=== PATIENT | male | born 1930 | race Caucasian/White ===

== ENCOUNTER 2018-07-26 16:01 | Inpatient (IN) | payer OTHER ==
[~2018-07-26] VITALS: Ht 160 cm; Wt 75.4 kg
[2018-07-26] MEDS ORDERED: SOD CHLORIDE 0.9% 1,000 ML IV STA (16:13)
[2018-07-26] MEDS ORDERED: SIN50200 PO (16:31)
[2018-07-26] MEDS ORDERED: OMEG1CAP2 PO (16:32)
[2018-07-26] MEDS ORDERED: ENTA200T2 PO (16:32)
[2018-07-26] MEDS ORDERED: ATOR20TA38 PO (16:32)
[2018-07-26] MEDS ORDERED: METF500T24 PO (16:33)
[2018-07-26] MEDS ORDERED: NALO25TA PO (16:33)
[2018-07-26] MEDS ORDERED: AMAN100C96 PO (16:33)
--- NOTE | 2018-07-26 16:33 | ERD ---
ER Documentation Chief Complaint Chief Complaint Per family patient fell yesterday in the bathroom HPI This is a pleasant elderly 88-year-old male who presents for evaluation of a mechanical fall, where the patient had slipped on his urine, while he had been in the bathroom, he has a prior history of Parkinson's disease, his daughter and granddaughter at the bedside, and states that he is at his mental baseline. Patient had no loss of consciousness, he complains mainly of left hip ROS All systems reviewed and are negative except as per history of present illness. Medications Home Meds Reported Medications Tamsulosin Hcl* (Tamsulosin Hcl*) 0.4 Mg Cap.er.24h, 0.4 MG PO HS, CAP 07/26/18 Aspirin (Low Dose Aspirin) 81 Mg Tablet.dr, 81 MG PO DAILY, #30 TAB 07/26/18 Pramipexole* (Mirapex*) 0.5 Mg Tablet, 0.5 MG PO FIVE TIMES DAILY, TAB 07/26/18 Lisinopril* (Lisinopril*) 5 Mg Tablet, 5 MG PO DAILY, #30 TAB 07/26/18 Atenolol* (Atenolol*) 50 Mg Tablet, 50 MG PO DAILY, #30 TAB 07/26/18 Naloxegol Oxalate (Movantik) 25 Mg Tablet, 25 MG PO DAILY, TAB 07/26/18 Amantadine Hcl* (Amantadine Hcl*) 100 Mg Capsule, 100 MG PO BID, #60 CAP 07/26/18 Metformin Hcl* (Metformin Hcl*) 500 Mg Tablet, 500 MG PO WITH BREAKFAST DINNE, #60 TAB 07/26/18 Atorvastatin Calcium* (Atorvastatin Calcium*) 20 Mg Tablet, 20 MG PO QHS, #30 TAB 07/26/18 [place]-3 Acid Ethyl Esters (Lovaza) 1 Gm Capsule, 2 GM PO BID, CAP 07/26/18 Entacapone* (Entacapone*) 200 Mg Tablet, 200 MG PO QID, TAB 07/26/18 Carbidopa-Levodopa* (Sinemet CR*) 50-200 Mg Tabsr, 1 TAB PO QID, TAB 07/26/18 Allergies Allergies: Coded Allergies: No Known Allergy (Unverified , 07/26/18) PMhx/Soc History of Surgery: Yes (prostate) Anesthesia Reaction: No Hx Neurological Disorder: Yes (Parkinson's, dementia) Hx Respiratory Disorders: No Hx Cardiac Disorders: Yes (HTN) Hx Psychiatric Problems: No Hx Miscellaneous Medical Probl: No Hx Alcohol Use: No Hx Substance Use: No Hx Tobacco Use: No Smoking Status: Never smoker Physical Exam Vitals Vital Signs Date Temp Pulse Resp B/P (MAP) Pulse Ox O2 O2 Flow FiO2 Time Delivery Rate 07/26/18 98.7 80 20 83/45 (58) 98 16:05 Physical Exam Const: No acute distress Head: Atraumatic Eyes: Normal Conjunctiva ENT: Normal External Ears, Nose and Mouth. Neck: Full range of motion. No meningismus. Resp: Clear to auscultation bilaterally Cardio: Regular rate and rhythm, no murmurs Abd: Soft, non tender, non distended. Normal bowel sounds Skin: No petechiae or rashes Back: No midline or flank tenderness Ext: Left hip is held in flexed position, there is ecchymosis over the left hip area, tender over the mid pubis, sensation intact light touch distally posterior tibialis pulses 2+ Neur: Awake and alert Psych: Normal Mood and Affect Result Diagram: 07/26/18 1630 07/26/18 1630 Results 24 hrs Laboratory Tests Test 07/26/18 16:30 07/26/18 16:50 White Blood Count 5.1 10^3/ul Red Blood Count 3.66 10^6/ul Hemoglobin 11.4 g/dl Hematocrit 35.0 % Mean Corpuscular Volume 95.6 fl Mean Corpuscular Hemoglobin 31.1 pg Mean Corpuscular Hemoglobin Concent 32.6 g/dl Red Cell Distribution Width 13.0 % Platelet Count 117 10^3/UL Mean Platelet Volume 10.3 fl Immature Granulocytes % 0.200 % Neutrophils % 79.1 % Lymphocytes % 12.7 % Monocytes % 6.4 % Eosinophils % 1.2 % Basophils % 0.4 % Nucleated Red Blood Cells % 0.0 /100WBC Immature Granulocytes # 0.010 10^3/ul Neutrophils # 4.1 10^3/ul Lymphocytes # 0.7 10^3/ul Monocytes # 0.3 10^3/ul Eosinophils # 0.1 10^3/ul Basophils # 0.0 10^3/ul Nucleated Red Blood Cells # 0.0 10^3/ul Prothrombin Time 16.8 Sec Prothrombin Time Ratio 1.3 INR International Normalized Ratio 1.35 Sodium Level 141 mmol/L Potassium Level 4.0 mmol/L Chloride Level 101 mmol/L Carbon Dioxide Level 25 mmol/L Anion Gap 15 Blood Urea Nitrogen 22 mg/dl Creatinine 1.11 mg/dl Est Glomerular Filtrat Rate mL/min mL/min Glucose Level 237 mg/dl Calcium Level 8.5 mg/dl Total Bilirubin 1.0 mg/dl Direct Bilirubin 0.00 mg/dl Indirect Bilirubin 1.0 mg/dl Aspartate Amino Transf (AST/SGOT) 36 IU/L Alanine Aminotransferase (ALT/SGPT) 14 IU/L Alkaline Phosphatase 74 IU/L Troponin I < 0.012 ng/ml B-Type Natriuretic Peptide 718 PG/ML Total Protein 6.7 g/dl Albumin 3.6 g/dl Globulin 3.10 g/dl Albumin/Globulin Ratio 1.16 Urine Color RADHA Urine Clarity SLIGHTLY CLOUDY Urine pH 5.0 Urine Specific [place] 1.017 Urine Ketones TRACE mg/dL Urine Nitrite NEGATIVE mg/dL Urine Bilirubin NEGATIVE mg/dL Urine Urobilinogen NEGATIVE mg/dL Urine Leukocyte Esterase 2+ Nikolay/ul Urine Microscopic RBC 77 /HPF Urine Microscopic WBC 53 /HPF Urine Bacteria MANY /HPF Urine Hemoglobin 2+ mg/dL Urine Glucose NEGATIVE mg/dL Urine Total Protein NEGATIVE mg/dl Current Medications Medications Dose Sig/Whit Start Time Status Last (Trade) Ordered Route PRN Stop Time Admin Dose Reason Admin Sodium 1,000 ml @ Q1H STAT 07/26/18 DC 07/26/18 Chloride 1,000 mls/hr IV 16:13 16:49 07/26/18 17:12 Procedures/MDM This is a very pleasant elderly 88-year-old male who presents for evaluation of mechanical fall in the setting of a slip and fall, he has a prior history of Parkinson's disease, and is at his neurologic baseline. His CT scan confirmed closed femoral neck fracture, as well as a superior rami fracture on the left side, patient will require admission, he is otherwise hemodynamically stable, his CT brain shows no acute intracranial findings, Dr. Davis consulted for orthopedic surgery. Will be admitted to Dr. Mckenzie EKG: Rate/Rhythm: Normal Sinus Rhythm QRS, ST, T-waves: Nonspecific T wave changes per no changes consistent w/ acute ischemia Impression: No evidence of ischemia or arrhythmia Departure Diagnosis: Primary Impression: Hypotension Hypotension type: unspecified hypotension type Qualified Codes: I95.9 - Hypotension, unspecified Additional Impression: Subcapital fracture of femur Encounter type: initial encounter Fracture type: closed Laterality: left Qualified Codes: S72.012A - Unspecified intracapsular fracture of left femur, initial encounter for closed fracture Condition: Stable ALAINA KOROMA MD Jul 26, 2018 16:33
[2018-07-26] MEDS ORDERED: ATEN50TA PO (16:34)
[2018-07-26] MEDS ORDERED: LISI-313 PO (16:34)
[2018-07-26] MEDS ORDERED: TAMS0.4C2 PO (16:35)
[2018-07-26] MEDS ORDERED: ASPI81TA52 PO (16:35)
[2018-07-26] MEDS ORDERED: PRAM0.5T5 PO (16:35)
[2018-07-26] MEDS ORDERED: DOCUSATE SODIUM 100 MG CAP PO PRN (19:00)
[2018-07-26] MEDS ORDERED: NACL 0.9% 3 ML SYG IV SCH (19:00)
[2018-07-26] MEDS ORDERED: ONDANSETRON 4 MG INJ IV PRN (19:00)
[2018-07-26] MEDS ORDERED: morphine 2 MG INJ IV PRN (19:00)
[2018-07-26] MEDS ORDERED: ACETAMINOPHEN 325 MG TAB PO PRN (19:00)
[2018-07-26 19:32] VITALS: BP 111/60; PULSE 69; RESP 18
--- NOTE | 2018-07-26 20:33 | CONS ---
Assessment/Plan Assessment/Plan Hospital Course (Demo Recall) 88-year-old male with multiple medical problems including Parkinson's, dementia, diabetes presents with an acute on chronic left femoral neck fracture. Based on the patient's imaging the fracture is clearly chronic. It is difficult to say how long as the patient's family does not recall any other significant falls and he denied previous pain. However based on the history but most likely happened was the chronic femoral neck fracture was stable and with his fall today became unstable, displaced and went to varus. I reviewed the benefits and risks with the patient and his family of both hemiarthroplasty and operative treatment. A lengthy discussion was held, where the patient was told the rehabilitation, the potential risks, benefits and alternatives were discussed at length. Sp ecific risks discussed included but were not limited to excessive blood loss and the need for transfusion and therefore the risk of transmissible disease or transfusion reaction, deep infection and the potential need for repetitive debridements, implant removal, long-term antibiotic therapy, possibly requiring deep venous access, leg-length discrepancy, dislocation, possibly recurrent, with the need for closed versus open reduction, bracing, femoral or acetabular fracture and the need for further surgery for fixation, neurovascular injury with temporary or permanent numbness, tingling, weakness or paralysis, deep venous thrombosis, pulmonary embolism and , persistent pain, weakness, or limp, late aseptic loosening and the need for revision, polyethylene wear- induced osteolysis and related problems, and finally, a wide variety of unanticipated medical problems. The opportunity to ask questions and address any concerns was provided. The patient would like to proceed with scheduling. Plan: Preop clearance by medicine Plan for left hemiarthroplasty tomorrow night 07/27/2018 N.p.o. at midnight Nonweightbearing left lower extremity Pain control [place] DVT prophylaxis: SCDs Consultation Date/Type/Reason Admit Date/Time Jul 26, 2018 at 19:26 Date of Consultation: Jul 26, 2018 Reason for Consultation Left femoral neck fracture Date/Time of Note DATE: 07/26/18 TIME: 20:21 Hx of Present Illness This is an 88-year-old male who presented emergency department today with left groin pain after mechanical fall in the bathroom. He was unable to get up and bear weight. He was found to have a femoral neck fracture. Orthopedics was consulted. Patient has history of Parkinson's, dementia, diabetes, hypertension. Patient does walk in the house quite a bit. He does use a wheelchair when out of the house. Patient's family states that he has had no previous hip pain or left groin pain. He cannot recall a specific fall in recent times except for today. Patient denies any numbness and tingling. Patient denies fever, chills, shortness of breath, chest pain, nausea/vomiting, constipation, diarrhea, numbness, and tingling. Past Medical History Parkinson's Dementia Diabetes Hypertension Home Meds Reported Medications Tamsulosin Hcl* (Tamsulosin Hcl*) 0.4 Mg Cap.er.24h, 0.4 MG PO HS, CAP 07/26/18 Aspirin (Low Dose Aspirin) 81 Mg Tablet.dr, 81 MG PO DAILY, #30 TAB 07/26/18 Pramipexole* (Mirapex*) 0.5 Mg Tablet, 0.5 MG PO FIVE TIMES DAILY, TAB 07/26/18 Lisinopril* (Lisinopril*) 5 Mg Tablet, 5 MG PO DAILY, #30 TAB 07/26/18 Atenolol* (Atenolol*) 50 Mg Tablet, 50 MG PO DAILY, #30 TAB 07/26/18 Naloxegol Oxalate (Movantik) 25 Mg Tablet, 25 MG PO DAILY, TAB 07/26/18 Amantadine Hcl* (Amantadine Hcl*) 100 Mg Capsule, 100 MG PO BID, #60 CAP 07/26/18 Metformin Hcl* (Metformin Hcl*) 500 Mg Tablet, 500 MG PO WITH BREAKFAST DINNE, #60 TAB 07/26/18 Atorvastatin Calcium* (Atorvastatin Calcium*) 20 Mg Tablet, 20 MG PO QHS, #30 TAB 07/26/18 [place]-3 Acid Ethyl Esters (Lovaza) 1 Gm Capsule, 2 GM PO BID, CAP 07/26/18 Entacapone* (Entacapone*) 200 Mg Tablet, 200 MG PO QID, TAB 07/26/18 Carbidopa-Levodopa* (Sinemet CR*) 50-200 Mg Tabsr, 1 TAB PO QID, TAB 07/26/18 Medications Current Medications Dextrose/Sodium Chloride 1,000 ml @ 75 mls/hr [id number] IV ; Start 07/26/18 at 18:44 IV Flush (NS 3 ml) 3 ml PER PROTOCOL IV ; Start 07/26/18 at 19:00 Ondansetron HCl (Zofran Inj) 4 mg Q6H PRN IV NAUSEA/VOMITING; Start 07/26/18 at 19:00 Acetaminophen (Tylenol Tab) 650 mg Q6H PRN PO .PAIN 1-3 OR TEMP; Start 07/26/18 at 19:00 Morphine Sulfate (morphine) 2 mg Q4H PRN IV .SEVERE PAIN 7-10; Start 07/26/18 at 19:00 Docusate Sodium (Colace) 100 mg Q12H PRN PO .CONSTIPATION; Start 07/26/18 at 19:00 Zolpidem Tartrate (Ambien) 5 mg QHS PRN PO .INSOMNIA; Start 07/26/18 at 19:00 Famotidine (Pepcid) 20 mg Q24H PO ; Start 07/26/18 at 21:00 Amantadine HCl (Symmetrel) 100 mg BID PO ; Start 07/26/18 at 21:00 Atenolol (Tenormin) 50 mg DAILY PO ; Start 07/27/18 at 09:00 Atorvastatin Calcium (Lipitor) 20 mg QHS PO ; Start 07/26/18 at 21:00 Carbidopa/Levodopa (Sinemet Cr (50/ 200)) 1 tab QID PO ; Start 07/26/18 at 21:00 Entacapone (Comtan) 200 mg QID PO ; Start 07/26/18 at 21:00 Lisinopril (Zestril) 5 mg DAILY PO ; Start 07/27/18 at 09:00 Pramipexole (Mirapex) 0.5 mg DAILY PO ; Start 07/27/18 at 09:00 Tamsulosin HCl (Flomax) 0.4 mg HS PO ; Start 07/26/18 at 21:00 Allergies: Coded Allergies: No Known Allergy (Unverified , 07/26/18) Past Surgical History Past Surgical Hx: noncontributory Family History Significant Family History: no pertinent family hx Social History Alcohol Use: none Smoking Status: Never smoker Drug Use: none Exam/Review of Systems Exam Vitals Vital Signs Date Temp Pulse Resp B/P (MAP) Pulse Ox O2 O2 Flow FiO2 Time Delivery Rate 07/26/18 98.0 69 18 111/60 94 Room Air 19:32 (77) Exam General: Awake, alert, in no acute distress, pleasant and cooperative Heart: regular rhythm Lungs: breathing comfortably, no tachypnea or dyspnea MUSCULOSKELETAL: Left lower extremity: Skin intact Left leg is shortened and slightly externally rotated Sensation intact to light touch in a sural, saphenous, deep peroneal, superficial peroneal, medial and lateral plantar nerve distribution. Motor is intact, patient able to dorsiflex and plantarflex ankle and extend and flex great toe. Dorsalis Pedis pulse +2, Brisk capillary refill. Compartments are soft. Calves non-tender to palpation bilaterally. Results Result Diagram: 07/26/18 1630 07/26/18 1630 Results 24hrs Laboratory Tests Test 07/26/18 16:30 07/26/18 16:50 White Blood Count 5.1 Red Blood Count 3.66 L Hemoglobin 11.4 L Hematocrit 35.0 L Mean Corpuscular Volume 95.6 Mean Corpuscular Hemoglobin 31.1 Mean Corpuscular Hemoglobin Concent 32.6 Red Cell Distribution Width 13.0 Platelet Count 117 L Mean Platelet Volume 10.3 Immature Granulocytes % 0.200 Neutrophils % 79.1 H Lymphocytes % 12.7 L Monocytes % 6.4 Eosinophils % 1.2 Basophils % 0.4 Nucleated Red Blood Cells % 0.0 Immature Granulocytes # 0.010 Neutrophils # 4.1 Lymphocytes # 0.7 L Monocytes # 0.3 Eosinophils # 0.1 Basophils # 0.0 Nucleated Red Blood Cells # 0.0 Prothrombin Time 16.8 H Prothrombin Time Ratio 1.3 INR International Normalized Ratio 1.35 Sodium Level 141 Potassium Level 4.0 Chloride Level 101 Carbon Dioxide Level 25 Anion Gap 15 H Blood Urea Nitrogen 22 H Creatinine 1.11 Est Glomerular Filtrat Rate mL/min Glucose Level 237 H Calcium Level 8.5 Total Bilirubin 1.0 Direct Bilirubin 0.00 Indirect Bilirubin 1.0 Aspartate Amino Transf (AST/SGOT) 36 Alanine Aminotransferase (ALT/SGPT) 14 Alkaline Phosphatase 74 Troponin I < 0.012 B-Type Natriuretic Peptide 718 H Total Protein 6.7 Albumin 3.6 Globulin 3.10 Albumin/Globulin Ratio 1.16 Urine Color RADHA Urine Clarity SLIGHTLY CLOUDY A Urine pH 5.0 Urine Specific [place] 1.017 Urine Ketones TRACE A Urine Nitrite NEGATIVE Urine Bilirubin NEGATIVE Urine Urobilinogen NEGATIVE Urine Leukocyte Esterase 2+ H Urine Microscopic RBC 77 H Urine Microscopic WBC 53 H Urine Bacteria MANY A Urine Hemoglobin 2+ H Urine Glucose NEGATIVE Urine Total Protein NEGATIVE Imaging Imaging AP pelvis and 2 views of the left hip personally reviewed by myself: Shows a chronic left subcapital femoral neck fracture. The fracture is displaced and in varus. There is also some sclerosis at the base of the neck. Cortices are well corticated. CT scan of the pelvis personally reviewed by myself: Redemonstrates a displaced chronic appearing left femoral neck fracture. Medications Medication Current Medications Dextrose/Sodium Chloride 1,000 ml @ 75 mls/hr [id number] IV ; Start 07/26/18 at 18:44 IV Flush (NS 3 ml) 3 ml PER PROTOCOL IV ; Start 07/26/18 at 19:00 Ondansetron HCl (Zofran Inj) 4 mg Q6H PRN IV NAUSEA/VOMITING; Start 07/26/18 at 19:00 Acetaminophen (Tylenol Tab) 650 mg Q6H PRN PO .PAIN 1-3 OR TEMP; Start 07/26/18 at 19:00 Morphine Sulfate (morphine) 2 mg Q4H PRN IV .SEVERE PAIN 7-10; Start 07/26/18 at 19:00 Docusate Sodium (Colace) 100 mg Q12H PRN PO .CONSTIPATION; Start 07/26/18 at 19:00 Zolpidem Tartrate (Ambien) 5 mg QHS PRN PO .INSOMNIA; Start 07/26/18 at 19:00 Famotidine (Pepcid) 20 mg Q24H PO ; Start 07/26/18 at 21:00 Amantadine HCl (Symmetrel) 100 mg BID PO ; Start 07/26/18 at 21:00 Atenolol (Tenormin) 50 mg DAILY PO ; Start 07/27/18 at 09:00 Atorvastatin Calcium (Lipitor) 20 mg QHS PO ; Start 07/26/18 at 21:00 Carbidopa/Levodopa (Sinemet Cr (50/ 200)) 1 tab QID PO ; Start 07/26/18 at 21:00 Entacapone (Comtan) 200 mg QID PO ; Start 07/26/18 at 21:00 Lisinopril (Zestril) 5 mg DAILY PO ; Start 07/27/18 at 09:00 Pramipexole (Mirapex) 0.5 mg DAILY PO ; Start 07/27/18 at 09:00 Tamsulosin HCl (Flomax) 0.4 mg HS PO ; Start 07/26/18 at 21:00 ALBERT SOTELO MD Jul 26, 2018 20:32
[2018-07-26] MEDS: AMANTADINE 100 MG CAP PO SCH (21:00)
[2018-07-26] MEDS ORDERED: CARBIDOPA/LEVODOPA 50-200 (CR) TAB PO SCH (21:00)
[2018-07-26] MEDS: FAMOTIDINE 20 MG TAB PO SCH (21:00)
[2018-07-26] MEDS: TAMSULOSIN (SR) 0.4 MG CAP PO SCH (21:00)
[2018-07-26] MEDS ORDERED: ATORVASTATIN 20 MG TAB PO SCH (21:00)
[2018-07-26 21:03] VITALS: Ht 160 cm; Wt 75.4 kg
[2018-07-26] MEDS: DEXTROSE 5%-0.45% NACL 1,000 ML IV SCH (21:29)
[2018-07-26] MEDS: ENTACAPONE 200 MG TAB PO SCH (22:48)
[2018-07-26] MEDS: CARBIDOPA/LEVODOPA 25-100 (CR) TAB PO SCH (22:49)
[2018-07-26] MEDS: ZOLPIDEM 5 MG TAB PO PRN (22:53)
[2018-07-27] VITALS (13 sets, daily range): BP systolic 93–173; BP diastolic 39–69; PULSE 47–89; RESP 12–19
--- NOTE | 2018-07-27 06:06 | NUR ---
end of shift reports: patient is confused, with tremors on and off. with periods of agitations. unable to turn the patient to the right side for skin assessments of the sacrococcyx area and back, patient was combative. resting comfortably at this moment. unable to do the iv reinsertion at this moment, will endorse to the next shift RN. bed alarm activated.
--- NOTE | 2018-07-27 06:13 | NUR ---
KEPT PATIENT ON NPO.
[2018-07-27] MEDS ORDERED: ALBUMIN HUMAN 5% 250 ML INJ ONE (07:00)
[2018-07-27] MEDS ORDERED: METOPROLOL 5 MG INJ ONE (07:00)
[2018-07-27] MEDS ORDERED: PROPOFOL 1000 MG INJ ONE (07:00)
[2018-07-27] MEDS ORDERED: ALBUMIN HUMAN 25% 100 ML INJ ONE (07:00)
[2018-07-27] MEDS ORDERED: NA BICARBONATE 8.4% 50 ML SYG ONE (07:00)
[2018-07-27] MEDS ORDERED: CA CHLORIDE 10% 10 ML SYRINGE ONE (07:00)
[2018-07-27] MEDS ORDERED: DESFLURANE 15 MIN ONE (07:00)
[2018-07-27] MEDS ORDERED: CEFAZOLIN 1 GM INJ ONE (07:00)
[2018-07-27] MEDS ORDERED: ROCURONIUM 50 MG INJ ONE ×2 (07:00→14:52)
[2018-07-27] MEDS ORDERED: ETOMIDATE 20 MG INJ ONE (07:00)
[2018-07-27] MEDS: DEXTROSE 5%-0.45% NACL 1,000 ML IV SCH ×2 (08:04→23:07)
[2018-07-27] MEDS: ATENOLOL 50 MG TAB PO SCH (09:00)
[2018-07-27] MEDS: LISINOPRIL 5 MG TAB PO SCH (09:00)
--- NOTE | 2018-07-27 10:23 | HP ---
DATE OF ADMISSION: 07/26/2018 CHIEF COMPLAINT: Left hip pain. HISTORY OF PRESENT ILLNESS: An 88-year-old male with end-stage Parkinson's dementia, hypertension, t ype 2 diabetes mellitus, was brought in by his daughter with complaint of a ground level fall at home . The patient apparently fell in the bathroom. There was bruising on the lateral hand and wrist as well as right upper leg. There was no head trauma. The patient is a very poor historian and unable to respond to questions. Initial evaluation revealed a left femoral neck fracture. The patient was evaluated by orthopedic surgeon, . This was thought to be a chronic fracture which became u nstable following the fall on the day of admission. It led to displacement. The family agreed with hemiarthroplasty. PAST MEDICAL HISTORY: 1. Severe Parkinson's dementia. 2. Hypertension. 3. Type 2 diabetes mellitus. 4. Benign prostatic hyperplasia. MEDICATIONS PRIOR TO ADMISSION: 1. Aspirin. 2. Mirapex. 3. Lisinopril. 4. Atenolol. 5. Movantik. 6. Amantadine. 7. Metformin. 8. Lipitor. 9. Lovaza 10. Entacapone. 11. Carbidopa. 12. Levodopa. SOCIAL HISTORY: The patient does not smoke or drink alcohol. He lives at home with family members. PHYSICAL EXAMINATION: GENERAL: Well-developed, well-nourished elderly male who is poorly arousable. He is nonverbal. VITAL SIGNS: Stable. He is afebrile. HEENT: Extraocular muscles intact. Pupils equal and reactive to light bilaterally. NECK: Supple. LUNGS: Clear to auscultation bilaterally. CARDIAC: Regular rate and rhythm. No murmurs, rubs or gallops. ABDOMEN: Soft, nontender, nondistended, normoactive bowel sounds. EXTREMITIES: No clubbing, cyanosis, or edema. LABORATORY DATA: White blood cell count 5.1, hemoglobin 11.4, platelet is 117,000. Sodium 141, pota ssium 4, chloride 101, bicarbonate 25, BUN 22, creatinine 1.1, glucose is 237. Liver function tests are within normal limits. ASSESSMENT: 1. An 88-year-old male status post ground level fall. 2. Acute on chronic left femoral neck fracture. 3. Severe Parkinson's dementia. 4. Hypertension. 5. Type 2 diabetes mellitus. PLAN: 1. Admit to Med/Surg, proceed with hemiarthroplasty in the evening. Resume home medications includi ng antihypertensive. 2. The patient is at moderate risk of intraoperative or postoperative complications due to his comor bidities. However, family members agreed to a left hemiarthroplasty. Dictated By: KEELY IBARRA/RONN Conf#: [id number] DID#: [id number] CC: Humberto Davis MD;*EndCC*
[2018-07-27] MEDS: ENTACAPONE 200 MG TAB PO SCH ×4 (11:50→22:54)
[2018-07-27] MEDS: AMANTADINE 100 MG CAP PO SCH ×2 (11:50→22:52)
[2018-07-27] MEDS: CARBIDOPA/LEVODOPA 25-100 (CR) TAB PO SCH ×4 (11:51→22:54)
[2018-07-27] MEDS: PRAMIPEXOLE 0.25 MG TAB PO SCH (11:51)
--- NOTE | 2018-07-27 14:07 | PREAC ---
Date/Time of Note Date/Time of Note DATE: 07/27/18 TIME: 14:04 Anesthesia Eval and Record Evaluation Time Pre-Procedure Interview DATE: 07/27/18 TIME: 14:04 Age 88 Sex male NPO: 8 hrs Preoperative diagnosis L femoral neck fx (displaced) Planned procedure L hip hemiarthroplasty Past Medical History Past Medical History: Includes Cardio: HTN, Dyslipidemia, Other Endo: Diabetes Neuro: Peripheral neuropathy, Other (severe parkinsons dementia) Heme: Anemia Psych: Other (dementia (family consenting)) Surgery & Anesthesia Issues Significant blood loss Meds Anticoagulation: No Beta Maia within 24 hr: Yes Reported Medications Tamsulosin Hcl* (Tamsulosin Hcl*) 0.4 Mg Cap.er.24h, 0.4 MG PO HS, CAP 07/26/18 Aspirin (Low Dose Aspirin) 81 Mg Tablet.dr, 81 MG PO DAILY, #30 TAB 07/26/18 Pramipexole* (Mirapex*) 0.5 Mg Tablet, 0.5 MG PO FIVE TIMES DAILY, TAB 07/26/18 Lisinopril* (Lisinopril*) 5 Mg Tablet, 5 MG PO DAILY, #30 TAB 07/26/18 Atenolol* (Atenolol*) 50 Mg Tablet, 50 MG PO DAILY, #30 TAB 07/26/18 Naloxegol Oxalate (Movantik) 25 Mg Tablet, 25 MG PO DAILY, TAB 07/26/18 Amantadine Hcl* (Amantadine Hcl*) 100 Mg Capsule, 100 MG PO BID, #60 CAP 07/26/18 Metformin Hcl* (Metformin Hcl*) 500 Mg Tablet, 500 MG PO WITH BREAKFAST DINNE, #60 TAB 07/26/18 Atorvastatin Calcium* (Atorvastatin Calcium*) 20 Mg Tablet, 20 MG PO QHS, #30 TAB 07/26/18 [place]-3 Acid Ethyl Esters (Lovaza) 1 Gm Capsule, 2 GM PO BID, CAP 07/26/18 Entacapone* (Entacapone*) 200 Mg Tablet, 200 MG PO QID, TAB 07/26/18 Carbidopa-Levodopa* (Sinemet CR*) 50-200 Mg Tabsr, 1 TAB PO QID, TAB 07/26/18 Current Medications Dextrose/Sodium Chloride 1,000 ml @ 75 mls/hr [id number] IV Last administered on 07/26/18at 21:29; Admin Dose 75 MLS/HR; Start 07/26/18 at 18:44 IV Flush (NS 3 ml) 3 ml PER PROTOCOL IV ; Start 07/26/18 at 19:00 Ondansetron HCl (Zofran Inj) 4 mg Q6H PRN IV NAUSEA/VOMITING; Start 07/26/18 at 19:00 Acetaminophen (Tylenol Tab) 650 mg Q6H PRN PO .PAIN 1-3 OR TEMP; Start 07/26/18 at 19:00 Morphine Sulfate (morphine) 2 mg Q4H PRN IV .SEVERE PAIN 7-10; Start 07/26/18 at 19:00 Docusate Sodium (Colace) 100 mg Q12H PRN PO .CONSTIPATION; Start 07/26/18 at 19:00 Zolpidem Tartrate (Ambien) 5 mg QHS PRN PO .INSOMNIA Last administered on 07/26/18at 22:53; Admin Dose 5 MG; Start 07/26/18 at 19:00 Famotidine (Pepcid) 20 mg Q24H PO ; Start 07/26/18 at 21:00 Amantadine HCl (Symmetrel) 100 mg BID PO Last administered on 07/27/18at 11:50; Admin Dose 100 MG; Start 07/26/18 at 21:00 Atenolol (Tenormin) 50 mg DAILY PO ; Start 07/27/18 at 09:00 Atorvastatin Calcium (Lipitor) 20 mg QHS PO Last administered on 07/26/18at 21:37; Admin Dose 20 MG; Start 07/26/18 at 21:00 Entacapone (Comtan) 200 mg QID PO Last administered on 07/27/18at 11:50; Admin Dose 200 MG; Start 07/26/18 at 21:00 Lisinopril (Zestril) 5 mg DAILY PO ; Start 07/27/18 at 09:00 Pramipexole (Mirapex) 0.5 mg DAILY PO Last administered on 07/27/18at 11:51; Admin Dose 0.5 MG; Start 07/27/18 at 09:00 Tamsulosin HCl (Flomax) 0.4 mg HS PO ; Start 07/26/18 at 21:00 Carbidopa/Levodopa (Sinemet Cr (25/ 100)) 2 tab QID PO Last administered on 07/27/18at 11:51; Admin Dose 2 TAB; Start 07/26/18 at 21:41 Influenza Virus Vaccine Quadrival (Fluzone) 0.5 ml ONCE ONCE IM* ; Start 07/28/18 at 09:00; Stop 07/28/18 at 09:01 Meds reviewed: Yes Allergies Coded Allergies: No Known Allergy (Unverified , 07/26/18) Allergies Reviewed: Yes Labs/Studies Labs Reviewed: Reviewed by anesthesiologist Result Diagram: 07/26/18 1630 07/26/18 1630 Laboratory Tests 07/26/18 16:30 Blood Bank Test 07/26/18 21:10 Antibody Screen NEGATIVE Blood Type A POSITIVE test: N/A Studies: ECG, CXR, Other (medical clearance) Pre-procedure Exam Last vitals Vital Signs Date Temp Pulse Resp B/P (MAP) Pulse Ox O2 O2 Flow FiO2 Time Delivery Rate 07/27/18 98.7 62 19 107/55 95 08:09 (72) 07/27/18 Room Air 01:49 Airway: Adequate mouth opening, Adequate thyromental dist Mallampati: Mallampati III Teeth: Normal Lung: Normal Heart: Normal ASA Physical Status ASA physical status: 4 Emergency: E Planned Anesthetic General/MAC: ETT Planned Pain Management Sub-arachniod narcotics, Parenteral pain med, VOICE INSTRUCTOR, Other neuraxial med, Local by surgeon Pre-operative Attestations Prior to commencing anesthesia and surgery, the patient was re-evaluated, there was verification of: *The patient's identity *The results of appropriate recent lab work and preoperative vital signs *The above evaluation not changing prior to induction *Anesthetic plan, risk (moderate intra/perioperative based on co-morbidities) benefits, alternative and complications discussed with family; questions answered; family understands, accepts and wishes to proceed. BLESSING EMMANUEL MD Jul 27, 2018 14:07
[2018-07-27] MEDS ORDERED: FENTAnyl 50 MCG/ML VIAL ONE (14:49)
[2018-07-27] MEDS ORDERED: MIDAZOLAM 1 MG/ML 2 ML INJ ONE (14:50)
[2018-07-27] MEDS ORDERED: ONDANSETRON 4 MG INJ ONE (14:51)
[2018-07-27] MEDS ORDERED: PROPOFOL 20 ML ONE (14:52)
[2018-07-27] MEDS ORDERED: SUCCINYLCHOLINE CHLORIDE 100 MG/5 ML SYG IV ONE (14:52)
[2018-07-27] MEDS ORDERED: LIDOCAINE 2% (SDV) 5 ML INJ ONE (14:52)
--- NOTE | 2018-07-27 15:22 | NUR ---
NURSE NOTE: Patient is being transferred to OR; Patient has left forearm gauge 20 IV access inserted today; patient kept NPO except for medications. Patient in no distress with family member at bedside.
[2018-07-27] MEDS ORDERED: morphine SULFATE/PF (10 MG/10 ML) INJ ONE (16:20)
[2018-07-27] MEDS ORDERED: EPINEPHrine 1 MG INJ ONE (16:21)
--- NOTE | 2018-07-27 16:32 | HPN ---
Date/Time of Note Date/Time of Note DATE: 07/27/18 TIME: 16:31 Interval H&P Admission Note Pt. seen H&P reviewed: No system changes Left lower extremity: Skin intact. Leg is shortened and slightly externally rotated. Sensation intact to light touch in a sural, saphenous, deep peroneal, superficial peroneal, medial and lateral plantar nerve distribution. Motor is intact, patient able to dorsiflex and plantarflex ankle and extend and flex great toe. Dorsalis Pedis pulse +2, Brisk capillary refill. Compartments are soft. Calves non-tender to palpation bilaterally. ALBERT SOTELO MD Jul 27, 2018 16:32
[2018-07-27] MEDS ORDERED: TRANEXAMIC ACID 1,000 MG in NS 100 ML INTRA-OP X1 IVPB ONE (17:00)
[2018-07-27] MEDS ORDERED: VANCOMYCIN 1 GM (PMX) 250 ML IVPB ONE (17:00)
[2018-07-27] MEDS ORDERED: TRANEXAMIC ACID 1,000 MG in NS 100 ML PRE-OP X1 IVPB ONE (17:00)
--- NOTE | 2018-07-27 18:35 | NUR ---
END OF SHIFT NURSE NOTE: Patient off unit still in OR.
[2018-07-27] MEDS ORDERED: DOPamine-D5W 1.6 MG/ML 250 ML ONE (18:44)
[2018-07-27] MEDS ORDERED: PHENYLephrine 10 MG INJ ONE (18:55)
[2018-07-27] MEDS ORDERED: SOD CHLORIDE 0.9% 250 ML IV* ONE (18:56)
--- NOTE | 2018-07-27 20:56 | OPR ---
Date/Time of Note Date/Time of Note DATE: 07/27/18 TIME: 20:54 Operative Report Procedure Date: Jul 27, 2018 Preoperative Diagnosis Subacute femoral neck fracture Postoperative Diagnosis As above Operation/Procedure Performed Cemented left hip hemiarthroplasty Surgeon see signature line Concession Supervisor Mele Campbell Anesthesia Type: general, spinal Estimated Blood Loss: other (500 mL) Transfusion none Specimen Left femoral head Grafts/Implants Depuy Cemented Page size 6 std offset Head 52mm outer head, 28mm 15.5 mm inner head - cobalt chrome Tubes/Drains Medium Hemovac, anterolateral thigh Complications intraoperative ST wave changes, pressure dependent. Pt Condition Post Procedure: guarded Disposition: other (ICU) Procedure Description PREOP DIAGNOSIS: Chronic left femoral neck fracture POSTOP DIAGNOSIS: Same. SURGICAL PROCEDURE: Cemented left hip hemiarthroplasty INDICATIONS: The patient is a 88 year-old man with multiple medical problems including hypertension, Parkinson's, dementia, diabetes. He presented to the emergency department at [facility] after a fall in the bathroom at home. Upon further evaluation and imaging he was found to have a left femoral neck fracture. On x-rays of the femoral neck fracture was clearly chronic which then likely proceeded to displace when he fell. Patient's family is unsure when he may have worsening falling to cause the femoral neck fracture. He was reportedly walking prior to his fall yesterday. He was seen by an branch billing payroll clerk for medical clearance and was cleared for surgery. INFORMED CONSENT: The operative procedure and the rehabilitation, the potential risks, benefits and alternatives were discussed at length. Specific risks discussed included but were not limited to excessive blood loss and the need for transfusion and therefore the risk of transmissible disease or transfusion reaction, deep infect ion and the potential need for repetitive debridements, implant removal, long- term antibiotic therapy, possibly requiring deep venous access, leg-length discrepancy, dislocation, possibly recurrent, with the need for closed versus open reduction, bracing, femoral or acetabular fracture and the need for further surgery for fixation, neurovascular injury with temporary or permanent numbness, tingling, weakness or paralysis, deep venous thrombosis, pulmonary embolism and , persistent pain, weakness, or limp, late aseptic loosening and the need for revision, polyethylene wear-induced osteolysis and related problems, and finally, a wide variety of unanticipated medical problems. The opportunity to ask questions and address any concerns was provided. The patient wished to proceed. FINDINGS: Left femoral neck fracture SURGERY IN DETAIL: The patient was taken into the Operating Room and placed supine on the operating table. Preoperatively, they were administered Ancef and vancomycin. They were administered spinal and general anesthesia by the Anesthesia Department. An A- line and central line was placed. The patient was placed on an [facility] Lateral Positioner in a right lateral decubitus position with the left hip superior. An axillary roll was placed, all pressure points were confirmed padded. The left hip region was prepped and draped in sterile fashion. A surgical pause was performed, correctly identifying the patient's name, the correct medical record number, the correct diagnosis, correct surgical procedure, and the correct extremity. 1g of tranexamic acid was dosed at the time of incision A posterolateral skin incision, approximately 15-20 cm in length was made, centered over the greater trochanter, skin and subcutaneous tissue sharply dissected. There was significant hematoma and soft tissue trauma. Deep fascial layer was identified and incised in line with the skin incision. Gluteus medius was retracted anteriorly. Piriformis tendon was identified, tagged with a stitch, and incised close to its insertion. The interval between the gluteus minimus and hip capsule was developed superiorly, and a superior retractor was placed. Short external rotators were subperiosteally incised from the posterior proximal femur to the level of the lesser trochanter and an inferior retractor was placed. A posterior capsulotomy was performed. The hip was internally rotated and the femoral neck fracture is visualized. The femur was retracted anteriorly and the femoral head was removed with a corkscrew. The femoral head was slightly larger than a 52 mm template. 52mm trial head was inserted on the plunger. It fit well and there was good suction. It moved freely within the acetabulum. Soft tissues were removed from the junction of the greater trochanter and the femoral neck osteotomy. A starting awl was utilized, followed by a lateralizing reamer, followed by axial reamers for the Page system up to a size 5. The femoral canal was then broached up to a size 6. A neutral femoral head was inserted and the hip was reduced. Range of motion and stability were quite good, including forward flexion to greater than 90 degrees, internal rotation greater than 80 degrees at 90 degrees flexion, internal rotation greater than 80 degrees with the hip adducted and at 45 degrees of flexion. External Rotation was also tested, and was stable with no impingement or instability at full extension and 30 degrees external rotation. The hip was dislocated in controlled manner using a bone hook and the trial components removed. The canal was then prepared for cementation. Third generation cementation technique was used. The canal was irrigated. A cement restrictor was placed at the appropriate depth. The canal brush was used to remove loose debris. Followed by more irrigation and hydrogen peroxide. The canal was dried and packed with vaginal packing. A lap was placed in the acetabulum to protect it from excess cement. Cement was placed within the canal and back filled. It was then pressurized. A size 6 cemented Page was then inserted by hand in appropriate anteversion. The prosthesis was kept proud approximately half centimeter proud above the calcar as this was the appropriate position with the broach in order to create equal leg lengths. Excess cement was removed. Once the cement hardened a trial head was placed. Range of motion was excellent with excellent stability. A formal cobalt chrome bipolar head was inserted onto the taper. The hip was reduced. One final time range of motion, stability, and soft tissue tension were satisfactory. The wound was thoroughly irrigated. 1g of tranexamic acid was dosed. The previously tagged arthrotomy, as well as the piriformis tendon was reattached to the gluteus medius at the level the greater trochanter. A medium Hemovac was placed exiting the anterolateral thigh. The deep fascial layer was closed with 1 Vicryl in a [id number]-[id number], interrupted fashion, deep subcutaneous tissues irrigated and closed with 0 Vicryl interrupted fashion, subcutaneous tissues irrigated, closed with 2-0 Vicryl in an inverted, interrupted fashion. The skin was closed with daisy. A sterile dressing was applied, abduction pillow was placed between the legs, and the patient was transferred to a supine position. Postoperative clinical leg lengths, rotation of limb were neutral and symmetric. All Counts were correct x2 DISPOSITION: During the surgery the patient had EKG changes and required pressor drip to maintain blood pressures. Patient also required significant amounts of fluids and albumin. He remained an uric throughout the case. Given the EKG changes and significant hospital fluid shifts anesthesia recommended leaving the patient intubated and observation in the ICU overnight. A wet trimmer will be consulted as well as the ICU cleaning specialist. Patient was transferred to ICU and is in stable condition. The patient will be weight bearing as tolerated on the operative extremity. PT will begin as soon as patient is medically stable. Posterior hip precautions for 3 months with an abduction pillow. Bilateral knee high SCDs will be worn while admitted. DVT chemoprophylaxis will be held until the morning to reevaluate coagulation. Pain will be controlled with medication. The patient will follow up in clinic in approximately 2 weeks. Implant: DePuy: Femoral stem: Page cement size 6, standard offset Femoral head: 52 mm outer head, 28+1.5 mm inner headcobalt chrome. ALBERT SOTELO MD Jul 27, 2018 20:56
[2018-07-27] MEDS ORDERED: oxyCODONE 5 MG TAB PO PRN ×3 (21:00)
[2018-07-27] MEDS ORDERED: BISACODYL 10 MG SUPP PR PRN (21:00)
[2018-07-27] MEDS ORDERED: NA PHOSPHATE/BIPHOS 133 ML ENEMA PR PRN (21:00)
[2018-07-27] MEDS ORDERED: MAGNESIUM HYDROXIDE 30ML CUP PO PRN (21:00)
[2018-07-27] MEDS ORDERED: DIPHENHYDRAMINE 50 MG INJ IV PRN (21:00)
[2018-07-27] MEDS ORDERED: DOCUSATE SODIUM 100 MG CAP PO ONE (21:00)
[2018-07-27] MEDS ORDERED: SENNA/DOCUSATE NA (8.6MG/50MG) TAB PO PRN (21:00)
[2018-07-27] MEDS ORDERED: NALOXONE (0.4 MG/ML) INJ IV PRN (21:00)
[2018-07-27] MEDS ORDERED: HYDROmorphONE 1 MG/ML SYG IV PRN (21:00)
[2018-07-27] MEDS ORDERED: NACL 0.9% 3 ML SYG IV SCH (21:00)
[2018-07-27] MEDS ORDERED: PHENYLephrine (100 MCG/ML) 5ML SYG ONE (21:07)
[2018-07-27] MEDS ORDERED: ASPIRIN 325 MG TAB PO ONE (21:30)
--- NOTE | 2018-07-27 21:30 | NUR ---
RECEIVED PT. FROM OR. ACCOMPANIED BY DR. EMMANUEL AND DR. SOTELO, OR. NURSES AND RT. BAGGED BY DR. EMMANUEL THEN RT. CONNECTED TO VENT AC 12,550 FIO2 60 % PEEP 5 02. SAT. 98 5LUNGS EXPANDS BILATERALLY, ON PROPOFOL DRIP AND NEOSYNEPHRINE DRIP TO KEEP BP. BETWEEN 120 - [address] DEPRESSION, RT. RADIAL A. LINE LEVELED AND ZEROED BY DR. EMMANUEL,2200 ASSESSMENT DONE AND CAHRTED.LABS, XRAY OF THE PELVIS DONE.
[2018-07-27] MEDS: METOPROLOL 5 MG INJ IV SCH ×3 (21:51→22:36)
[2018-07-27] MEDS ORDERED: morphine 4 MG/ML VIAL IV PRN (22:00)
--- NOTE | 2018-07-27 22:00 | NUR ---
FAMILY AT BEDSIDE UPDATES GIVEN. RE; COMFORT, MEDICATIONS, VS. MONITORING, LABS, XRAY ABG, BLOOD TRANSFUSIONS ORDERED. FAMILY AGREED.
[2018-07-27] MEDS: POTASSIUM CHLORIDE 100 ML IVPB SCH (22:06)
[2018-07-27] MEDS: CEFAZOLIN 2 GM/50 ML (PMX) 50 ML IVPB SCH (22:13)
[2018-07-27] MEDS ORDERED: METOPROLOL 25 MG TAB PO ONE (22:30)
--- NOTE | 2018-07-27 22:30 | NUR ---
RECEIVED CALL FROM DR. SINGER STATES NGT. NEEDS TO BE ADVANCED BY 10 CM. DONE AT [id number]
--- NOTE | 2018-07-27 22:30 | NUR ---
ABDUCTION PILLOW INPLACE, DISTAL PULSES PALPABLE SKIN WARM And dry, moves affected extrimity pt touch, hemovac w/ scanty serosanguinopus output, urine output dark yvonne in color
[2018-07-27] MEDS: ACETAMINOPHEN 1000MG/100ML IV 100 ML IVPB SCH (22:50)
[2018-07-27] MEDS: FAMOTIDINE 20 MG TAB PO SCH (22:54)
[2018-07-27] MEDS: GABAPENTIN 300 MG CAP PO SCH (22:54)
[2018-07-27] MEDS: ATORVASTATIN 40 MG TAB PO SCH (23:11)
[2018-07-27] MEDS: SOD CHLORIDE 0.9% 1,000 ML IV SCH (23:12)
[2018-07-27] MEDS: TAMSULOSIN (SR) 0.4 MG CAP PO SCH (23:12)
[2018-07-28] VITALS (69 sets, daily range): BP systolic 88–153; BP diastolic 37–71; PULSE 46–86; RESP 11–30
[2018-07-28] MEDS: POTASSIUM CHLORIDE 100 ML IVPB SCH (00:25)
--- NOTE | 2018-07-28 00:45 | NUR ---
DR. SOUZA AT [facility], LAB/XRAY RESULTS NOTED UPDATED RE: LOPRESSOR 25 MG/ PO. HELD DUE TO BRADYCARDIA AND LOW BP. AFTER LOPRESSOR 5 MG. IVP. X 3 DOSES NADMINISTERED. STATES THATS FINE.
--- NOTE | 2018-07-28 01:00 | QN ---
Documentation Comment Called to review patient for ST depression in surgery S: intubated \O: vitals reviewed 126/44 44 a feb nad, soft nt, ctab ant, rrr ekg from surgery reviewed patient with several PVC with st depression, normal sinus beats show no st depression 12 lead ekg post op shows no st segment abnormality anasthesia record makes note of st segment changes, no hypotension, no tachy/gurpreet a/p 1. POD #0 L hip hemiarthroplasty 2. cards: doubt significant ischemia intraop, cont asa and lipitor, hold metop in light bradycardia 3. pulM: anticipate vent wean in am DORY NESS MD Jul 28, 2018 01:00
[2018-07-28] MEDS ORDERED: PROPOFOL 100 ML IV SCH ×2 (01:30)
[2018-07-28] MEDS ORDERED: PHENYLephrine 40 MG in DEXTROSE 5% 246 ML IV SCH (02:30)
--- NOTE | 2018-07-28 03:00 | NUR ---
BLOOD TRANSFUSION COMPLETED, NO UNTOWARD NOTED.
[2018-07-28] MEDS: CEFAZOLIN 2 GM/50 ML (PMX) 50 ML IVPB SCH ×2 (05:46→12:31)
[2018-07-28] MEDS: ACETAMINOPHEN 1000MG/100ML IV 100 ML IVPB SCH ×2 (05:46→12:24)
[2018-07-28] MEDS: PANTOPRAZOLE (EC) 40 MG TAB PO SCH (06:13)
[2018-07-28] MEDS: VANCOMYCIN 1 GM (PMX) 250 ML IVPB SCH ×2 (06:46→17:19)
[2018-07-28] MEDS: DEXTROSE 5%-0.45% NACL 1,000 ML IV SCH (07:49)
--- NOTE | 2018-07-28 07:56 | PN ---
Date/Time of Note Date/Time of Note DATE: 07/28/18 TIME: 07:51 Assessment/Plan Lines/Catheters IV Catheter Type (from [facility]): Central Line [place] in Place (from [facility]): Yes Assessment/Plan Chief Complaint/Hosp Course 88-year-old male postop day #1 status post left hemiarthroplasty for femoral neck fracture. Patient remains in ICU and intubated. He is in stable condition. Plan: Continue medical management per welding equipment repairer and medical team When extubated and stable patient should have physical therapy. Posterior hip precautions. WBAT Continue Ancef and vancomycin 24 hours postoperative. DVT prophylaxis: SCDs. Patient currently on aspirin for cardiac reasons. Will reevaluate for further chemoprophylaxis if necessary. Hemovac: Measure output every 8 hours. [place]: Continue for fluid management DC planning: Patient will need correction facility versus acute rehab. Subjective 24 Hr Interval Summary Patient remains intubated and ICU No acute events overnight Patient remains on medial drip secondary to bradycardia. Exam/Review of Systems Vital Signs Vitals Vital Signs Date Temp Pulse Resp B/P (MAP) Pulse Ox O2 O2 Flow FiO2 Time Delivery Rate 07/28/18 52 12 122/46 100 Mechanical 07:00 (71) Ventilator 07/28/18 98.5 06:31 07/28/18 50 05:06 Intake and Output 07/27/18 07/27/18 07/28/18 1515:00 23:00 07:00 IntakeIntake Total 2675 ml 1036.38 ml OutputOutput Total 620 ml 400 ml BalanceBalance 2055 ml 636.38 ml Exam Free Text/Dictation Left lower extremity lower extremity: Dressing: clean, dry, and intact, no erythema Hemovac in place. Brisk cap refill. Results Result Diagram: 07/28/18 0340 07/28/18 0340 ALBERT SOTELO MD Jul 28, 2018 07:56
[2018-07-28] MEDS: CARBIDOPA/LEVODOPA 25-100 (CR) TAB PO SCH ×4 (08:46→20:42)
[2018-07-28] MEDS: ASPIRIN 81 MG TAB PO SCH (08:46)
[2018-07-28] MEDS: DOCUSATE SODIUM 100 MG CAP PO SCH ×2 (08:47→20:42)
[2018-07-28] MEDS: ENTACAPONE 200 MG TAB PO SCH ×4 (08:47→20:43)
[2018-07-28] MEDS: PRAMIPEXOLE 0.25 MG TAB PO SCH (08:48)
[2018-07-28] MEDS: SOD CHLORIDE 0.9% 1,000 ML IV SCH ×2 (08:58→20:55)
[2018-07-28] MEDS ORDERED: INFLUENZA VIRUS VACCINE 0.5 ML (DISPENSING) IM* ONE (09:00)
[2018-07-28] MEDS: LISINOPRIL 5 MG TAB PO SCH (09:00)
[2018-07-28] MEDS: ATENOLOL 50 MG TAB PO SCH (09:00)
[2018-07-28] MEDS ORDERED: METOPROLOL 25 MG TAB PO SCH (09:00)
--- NOTE | 2018-07-28 09:08 | CONS ---
Assessment/Plan Assessment/Plan Assessment/Plan (Daily) Chest x-ray is essentially unremarkable. Ventilator setting; AC of 12, tidal volume 550, PEEP of 5, 50% FiO2. Patient is off propofol drip. Assessment and recommendations; 1. Patient status post ORIF of left femoral fracture with postop respiratory failure. 2. Other comorbidities include history of dementia, neuropathy, hypertension, hyperlipidemia, BPH, diabetes and Parkinson's disease. 3. Anemia and thrombocytopenia. Continue to hold sedation. Ventilator settings have been adjusted, tidal volume decreased to 500, FiO2 30%. Once the patient is off sedative effect, he will be evaluated for possible extubation. Meanwhile continue supportive care. 40 minutes of critical care time was spent evaluating the patient. Consultation Date/Type/Reason Admit Date/Time Jul 26, 2018 at 19:26 Date of Consultation: Jul 28, 2018 Type of Consult Pulmonary/critical care Patient is a 88-year-old male who was brought into the hospital after sustaining a fall resulting in left femoral fracture. Patient underwent ORIF last evening. Patient could not be extubated immediately and was transferred to ICU intubated. By the time I saw him over here the patient is orally intubated and is currently still under sedative effect. Patient did not appear to be in any distress. Past medical history; 1. Apparently advanced dementia. 2. BPH. 3. Hypertension. 4. Neuropathy. 5. Hyperlipidemia. 6. Parkinson's disease. 7. Diabetes. Medications; reviewed. Patient is off sedation for the last hour and a half. Allergies; none. Social history, family history, occupational history is not available. Review of systems; currently unable to be obtained. General exam; elderly male, orally intubated, sedated. Currently in no distress. Date/Time of Note DATE: 07/28/18 TIME: 09:03 Past Medical History Home Meds Reported Medications Tamsulosin Hcl* (Tamsulosin Hcl*) 0.4 Mg Cap.er.24h, 0.4 MG PO HS, CAP 07/26/18 Aspirin (Low Dose Aspirin) 81 Mg Tablet.dr, 81 MG PO DAILY, #30 TAB 07/26/18 Pramipexole* (Mirapex*) 0.5 Mg Tablet, 0.5 MG PO FIVE TIMES DAILY, TAB 07/26/18 Lisinopril* (Lisinopril*) 5 Mg Tablet, 5 MG PO DAILY, #30 TAB 07/26/18 Atenolol* (Atenolol*) 50 Mg Tablet, 50 MG PO DAILY, #30 TAB 07/26/18 Naloxegol Oxalate (Movantik) 25 Mg Tablet, 25 MG PO DAILY, TAB 07/26/18 Amantadine Hcl* (Amantadine Hcl*) 100 Mg Capsule, 100 MG PO BID, #60 CAP 07/26/18 Metformin Hcl* (Metformin Hcl*) 500 Mg Tablet, 500 MG PO WITH BREAKFAST DINNE, #60 TAB 07/26/18 Atorvastatin Calcium* (Atorvastatin Calcium*) 20 Mg Tablet, 20 MG PO QHS, #30 TAB 07/26/18 [place]-3 Acid Ethyl Esters (Lovaza) 1 Gm Capsule, 2 GM PO BID, CAP 07/26/18 Entacapone* (Entacapone*) 200 Mg Tablet, 200 MG PO QID, TAB 07/26/18 Carbidopa-Levodopa* (Sinemet CR*) 50-200 Mg Tabsr, 1 TAB PO QID, TAB 07/26/18 Medications Current Medications Dextrose/Sodium Chloride 1,000 ml @ 75 mls/hr [id number] IV Last administered on 07/28/18at 07:49; Admin Dose 75 MLS/HR; Start 07/26/18 at 18:44 IV Flush (NS 3 ml) 3 ml PER PROTOCOL IV ; Start 07/26/18 at 19:00 Acetaminophen (Tylenol Tab) 650 mg Q6H PRN PO .PAIN 1-3 OR TEMP; Start 07/26/18 at 19:00 Docusate Sodium (Colace) 100 mg Q12H PRN PO .CONSTIPATION; Start 07/26/18 at 19:00 Zolpidem Tartrate (Ambien) 5 mg QHS PRN PO .INSOMNIA Last administered on 07/26/18at 22:53; Admin Dose 5 MG; Start 07/26/18 at 19:00 Famotidine (Pepcid) 20 mg Q24H PO Last administered on 07/27/18at 22:54; Admin Dose 20 MG; Start 07/26/18 at 21:00 Amantadine HCl (Symmetrel) 100 mg BID PO Last administered on 07/27/18at 22:52; Admin Dose 100 MG; Start 07/26/18 at 21:00 Atenolol (Tenormin) 50 mg DAILY PO ; Start 07/27/18 at 09:00 Entacapone (Comtan) 200 mg QID PO Last administered on 07/28/18at 08:47; Admin Dose 200 MG; Start 07/26/18 at 21:00 Lisinopril (Zestril) 5 mg DAILY PO ; Start 07/27/18 at 09:00 Pramipexole (Mirapex) 0.5 mg DAILY PO Last administered on 07/28/18at 08:48; Admin Dose 0.5 MG; Start 07/27/18 at 09:00 Tamsulosin HCl (Flomax) 0.4 mg HS PO Last administered on 07/27/18at 23:12; A dmin Dose 0.4 MG; Start 07/26/18 at 21:00 Carbidopa/Levodopa (Sinemet Cr (25/ 100)) 2 tab QID PO Last administered on 07/28/18at 08:46; Admin Dose 2 TAB; Start 07/26/18 at 21:41 Oxycodone HCl (Roxicodone) 15 mg Q4H PRN PO .PAIN; Start 07/27/18 at 21:00 Oxycodone HCl (Roxicodone) 10 mg Q4H PRN PO .PAIN; Start 07/27/18 at 21:00 Oxycodone HCl (Roxicodone) 5 mg Q4H PRN PO .PAIN; Start 07/27/18 at 21:00 Hydromorphone HCl (Dilaudid) 1 mg Q3H PRN IV .BREAKTHROUGH PAIN; Start 07/27/18 at 21:00 Acetaminophen (Tylenol Tab) 1,000 mg Q8 PO ; Start 07/28/18 at 22:00 Acetaminophen 100 ml @ 400 mls/hr Q8H IVPB Last administered on 07/28/18at 05:46; Admin Dose 400 MLS/HR; Start 07/27/18 at 21:00; Stop 07/28/18 at 13:14 Ondansetron HCl (Zofran Inj) 4 mg Q4H PRN IV NAUSEA/VOMITING; Start 07/28/18 at 21:00 Cefazolin Sodium/ Dextrose 50 ml @ 100 mls/hr Q8H IVPB Last administered on 07/28/18at 05:46; Admin Dose 100 MLS/HR; Start 07/27/18 at 21:00; Stop 07/28/18 at 13:29 Vancomycin HCl 250 ml @ 125 mls/hr Q12H IVPB Last administered on 07/28/18at 06:46; Admin Dose 125 MLS/HR; Start 07/28/18 at 06:00; Stop 07/28/18 at 19:59 Gabapentin (Neurontin) 300 mg QHS PO Last administered on 07/27/18at 22:54; Admin Dose 300 MG; Start 07/27/18 at 21:00 Pantoprazole (Protonix Tab) 40 mg DAILY@06 PO Last administered on 07/28/18at 06:13; Admin Dose 40 MG; Start 07/28/18 at 06:00 Docusate Sodium (Colace) 200 mg BID PO Last administered on 07/28/18at 08:47; Admin Dose 200 MG; Start 07/28/18 at 09:00; Stop 07/30/18 at 21:01 Simethicone (Mylicon) 80 mg TID PRN PO .GAS; Start 07/27/18 at 21:00 Senna/Docusate Sodium (Senokot-S) 2 tab BID PRN PO .CONSTIPATION; Start 07/27/18 at 21:00 Magnesium Hydroxide (Milk Of Mag) 30 ml HS PRN PO .CONSTIPATION; Start 07/27/18 at 21:00 Bisacodyl (Dulcolax Supp) 10 mg DAILY PRN FL .CONSTIPATION; Start 07/27/18 at 21:00 Sodium Biphosphate/ Sodium Phosphate (Fleet Enema) 133 ml DAILY PRN FL .CONSTIPATION; Start 07/27/18 at 21:00 Diphenhydramine HCl (Benadryl) 25 mg Q4H PRN IV .ITCHING; Start 07/27/18 at 21:00 Naloxone HCl (Narcan) 0.2 mg Q2M PRN IV .RESP RATE; Start 07/27/18 at 21:00 IV Flush (NS 3 ml) 3 ml per protocol IV ; Start 07/27/18 at 21:00 Aspirin (Aspirin) 81 mg DAILY PO Last administered on 07/28/18at 08:46; Admin Dose 81 MG; Start 07/28/18 at 09:00 Metoprolol Tartrate (Lopressor) 25 mg BID PO ; Start 07/28/18 at 09:00 Atorvastatin Calcium (Lipitor) 40 mg HS PO Last administered on 07/27/18at 23:11; Admin Dose 40 MG; Start 07/27/18 at 21:30 Morphine Sulfate (morphine) 2 mg Q4H PRN IV .SEVERE PAIN 7-10; Start 07/27/18 at 22:00 Sodium Chloride 1,000 ml @ 100 mls/hr Q10H IV Last administered on 07/28/18at 08:58; Admin Dose 100 MLS/HR; Start 07/27/18 at 23:00 Propofol 100 ml @ 2.262 mls/ hr Q12H IV Last administered on 07/28/18at 02:15; Admin Dose 4.62 MLS/HR; Start 07/28/18 at 01:30 Phenylephrine HCl 40 mg/Dextrose 250 ml @ 37.5 mls/hr TITRATE IV Last administered on 07/28/18at 03:12; Admin Dose 11.25 MLS/HR; Start 07/28/18 at 02:3 0 Allergies: Coded Allergies: No Known Allergy (Unverified , 07/26/18) Past Surgical History Past Surgical Hx: noncontributory Social History Alcohol Use: none Smoking Status: Former smoker Drug Use: none Exam/Review of Systems Exam Vitals Vital Signs Date Temp Pulse Resp B/P (MAP) Pulse Ox O2 O2 Flow FiO2 Time Delivery Rate 07/28/18 100 30 08:16 07/28/18 68 08:00 07/28/18 20 07:30 07/28/18 122/46 Mechanical 07:00 (71) Ventilator 07/28/18 98.5 06:31 Intake and Output 07/27/18 07/27/18 07/28/18 1414:59 22:59 06:59 IntakeIntake Total 2500 ml 1211.38 ml OutputOutput Total 570 ml 450 ml BalanceBalance 1930 ml 761.38 ml Exam H EENT exam; supple neck, orally intubated. Patient is edentulous. No neck masses. No thyromegaly. Pupils are small bilaterally. No neck masses. Chest exam; clear to auscultation. S1-S2 audible, no murmurs. Regular rhythm. Abdomen exam; soft, no organomegaly. Bowel sounds audible. Nondistended. Extremity exam; peripheral edema. Dressing applied to left lateral thigh. Wound drain in place. [employer] exam; patient is sedated. Results Result Diagram: 07/28/18 0340 07/28/18 0340 Results 24hrs Laboratory Tests Test 07/27/18 15:13 07/27/18 19:16 07/27/18 19:20 07/27/18 19:26 Bedside Glucose 151 Magnesium Level 2.2 Troponin I 0.013 White Blood 3.8 #L Count Red Blood Count 2.62 #L Hemoglobin 8.4 #L Hematocrit 25.1 #L Mean 95.8 Corpuscular Volume Mean 32.1 Corpuscular Hemoglobin Mean 33.5 Corpuscular Hemoglobin Conc ent Red Cell 12.8 Distribution Width Platelet Count 88 #L Mean Platelet 10.6 H Volume Immature 0.300 Granulocytes % Neutrophils % 66.5 Lymphocytes % 24.6 Monocytes % 6.3 Eosinophils % 1.8 Basophils % 0.5 Nucleated Red 0.0 Blood Cells % Immature 0.010 Granulocytes # Neutrophils # 2.5 Lymphocytes # 0.9 Monocytes # 0.2 L Eosinophils # 0.1 Basophils # 0.0 Nucleated Red 0.0 Blood Cells # Prothrombin 17.2 H Time Prothrombin 1.3 Time Ratio INR 1.39 International Normalized Rati o Activated 41.6 H Partial Thrombo plast Time Sodium Level 143 Potassium Level 3.3 L Chloride Level 108 Carbon Dioxide 24 Level Anion Gap 11 Blood Urea 12 # Nitrogen Creatinine 0.69 Est Glomerular Filtrat Rate mL/min Glucose Level 115 # Calcium Level 10.3 H Total Bilirubin 1.1 Direct 0.70 #H Bilirubin Indirect 0.4 Bilirubin Aspartate Amino 30 Transf (AST/SGO T) Alanine 17 Aminotransferas e (ALT/SGPT) Alkaline 60 Phosphatase Total Protein 6.1 Albumin 3.8 Globulin 2.30 Albumin/Globuli 1.65 n Ratio Blood Gas Blood Specimen arterial Source Arterial Blood 07/27/2018 7:20 Date Drawn :00 PM Arterial Blood 7.448 pH (Temp corrected ) Arterial Blood 33.1 L pCO2 (Temp correct) Arterial Blood 417.9 H pO2 (Temp corrected ) Arterial Blood 22.4 HCO3 Arterial Blood -1.2 Base Excess Arterial Blood 99.1 Oxygen Saturati on Natanael Test ACCEPTAB Arterial Blood Right Radial Gas Puncture Site Arterial 0.3 Blood Carboxyhe moglobin Arterial Blood 0.4 Methemoglobin Blood Gas A-a 262.0 H O2 Differential Oxyhemoglobin 98.4 Percent Blood Gas 37.0 Temperature Blood Gas 14.0 Respiration Rate Blood Gas 14 Actual Respiration Rat e Blood Gas VENT - ANESTH Modality FiO2 100.0 Blood Gas Tidal 550.0 Volume Blood Gas Low 5.0 PEEP Setting Blood Gas RTR Notified Whom Blood Gas 07/27/2018 7:32 Notified Time :00 PM Test 07/28/18 02:17 07/28/18 03:40 07/28/18 04:56 Blood Gas Blood arterial Specimen Source Arterial Blood 07/28/2018 3:06: Date Drawn 51 AM Arterial Blood 7.329 L pH (Temp corrected ) Arterial Blood 36.0 pCO2 (Temp correct) Arterial Blood 390.1 H pO2 (Temp corrected ) Arterial Blood 18.5 L HCO3 Arterial Blood -6.7 L Base Excess Arterial Blood 99.2 Oxygen Saturati on Natanael Test N/A Arterial Blood A-Line Gas Puncture Site Arterial 0.3 Blood Carboxyhe moglobin Arterial Blood 0.4 Methemoglobin Oxyhemoglobin 98.5 Percent Blood Gas 37.0 Temperature Blood Gas 12.0 Respiration Rate Blood Gas 13 Actual Respiration Rat e Blood Gas VENT - AC Modality FiO2 60.0 Blood Gas Tidal 550.0 Volume Blood Gas Low 5.0 PEEP Setting Blood Gas Dominador Critical Value Will [facility] Read Back Blood Gas Staci Torres [employer]EV[employer]ER Notified Whom Blood Gas 07/28/2018 3:16: Notified Time 11 AM White Blood 4.3 L Count Red Blood Count 2.98 L Hemoglobin 9.1 L Hematocrit 27.7 L Mean 93.0 Corpuscular Volume Mean 30.5 Corpuscular Hemoglobin Mean 32.9 Corpuscular Hemoglobin Conc ent Red Cell 13.9 Distribution Width Platelet Count 95 L Mean Platelet 11.0 H Volume Immature 0.200 Granulocytes % Neutrophils % 91.0 H Lymphocytes % 4.2 L Monocytes % 4.4 Eosinophils % 0.0 Basophils % 0.2 Nucleated Red 0.0 Blood Cells % Immature 0.010 Granulocytes # Neutrophils # 3.9 Lymphocytes # 0.2 L Monocytes # 0.2 L Eosinophils # 0.0 Basophils # 0.0 Nucleated Red 0.0 Blood Cells # Prothrombin 16.9 H Time Prothrombin 1.3 Time Ratio INR 1.36 International Normalized Rati o Sodium Level 140 Potassium Level 5.2 H Chloride Level 109 Carbon Dioxide 21 Level Anion Gap 10 Blood Urea 15 Nitrogen Creatinine 0.73 Est Glomerular Filtrat Rate mL/min Glucose Level 231 #H Calcium Level 8.6 Troponin I 0.014 Lab Scanned BLOOD TRANSFUSI Report ON Medications Medication Current Medications Dextrose/Sodium Chloride 1,000 ml @ 75 mls/hr [id number] IV Last administered on 07/28/18 07:49; Admin Dose 75 MLS/HR; Start 07/26/18 at 18:44 IV Flush (NS 3 ml) 3 ml PER PROTOCOL IV ; Start 07/26/18 at 19:00 Acetaminophen (Tylenol Tab) 650 mg Q6H PRN PO .PAIN 1-3 OR TEMP; Start 07/26/18 at 19:00 Docusate Sodium (Colace) 100 mg Q12H PRN PO .CONSTIPATION; Start 07/26/18 at 19:00 Zolpidem Tartrate (Ambien) 5 mg QHS PRN PO .INSOMNIA Last administered on 07/26/18at 22:53; Admin Dose 5 MG; Start 07/26/18 at 19:00 Famotidine (Pepcid) 20 mg Q24H PO Last administered on 07/27/18at 22:54; Admin Dose 20 MG; Start 07/26/18 at 21:00 Amantadine HCl (Symmetrel) 100 mg BID PO Last administered on 07/27/18at 22:52; Admin Dose 100 MG; Start 07/26/18 at 21:00 Atenolol (Tenormin) 50 mg DAILY PO ; Start 07/27/18 at 09:00 Entacapone (Comtan) 200 mg QID PO Last administered on 07/28/18at 08:47; Admin Dose 200 MG; Start 07/26/18 at 21:00 Lisinopril (Zestril) 5 mg DAILY PO ; Start 07/27/18 at 09:00 Pramipexole (Mirapex) 0.5 mg DAILY PO Last administered on 07/28/18at 08:48; Admin Dose 0.5 MG; Start 07/27/18 at 09:00 Tamsulosin HCl (Flomax) 0.4 mg HS PO Last administered on 07/27/18at 23:12; Admin Dose 0.4 MG; Start 07/26/18 at 21:00 Carbidopa/Levodopa (Sinemet Cr (25/ 100)) 2 tab QID PO Last administered on 07/28/18at 08:46; Admin Dose 2 TAB; Start 07/26/18 at 21:41 Oxycodone HCl (Roxicodone) 15 mg Q4H PRN PO .PAIN; Start 07/27/18 at 21:00 Oxycodone HCl (Roxicodone) 10 mg Q4H PRN PO .PAIN; Start 07/27/18 at 21:00 Oxycodone HCl (Roxicodone) 5 mg Q4H PRN PO .PAIN; Start 07/27/18 at 21:00 Hydromorphone HCl (Dilaudid) 1 mg Q3H PRN IV .BREAKTHROUGH PAIN; Start 07/27/18 at 21:00 Acetaminophen (Tylenol Tab) 1,000 mg Q8 PO ; Start 07/28/18 at 22:00 Acetaminophen 100 ml @ 400 mls/hr Q8H IVPB Last administered on 07/28/18at 05:46; Admin Dose 400 MLS/HR; Start 07/27/18 at 21:00; Stop 07/28/18 at 13:14 Ondansetron HCl (Zofran Inj) 4 mg Q4H PRN IV NAUSEA/VOMITING; Start 07/28/18 at 21:00 Cefazolin Sodium/ Dextrose 50 ml @ 100 mls/hr Q8H IVPB Last administered on 07/28/18at 05:46; Admin Dose 100 MLS/HR; Start 07/27/18 at 21:00; Stop 07/28/18 at 13:29 Vancomycin HCl 250 ml @ 125 mls/hr Q12H IVPB Last administered on 07/28/18at 06:46; Admin Dose 125 MLS/HR; Start 07/28/18 at 06:00; Stop 07/28/18 at 19:59 Gabapentin (Neurontin) 300 mg QHS PO Last administered on 07/27/18at 22:54; Admin Dose 300 MG; Start 07/27/18 at 21:00 Pantoprazole (Protonix Tab) 40 mg DAILY@06 PO Last administered on 07/28/18at 06:13; Admin Dose 40 MG; Start 07/28/18 at 06:00 Docusate Sodium (Colace) 200 mg BID PO Last administered on 07/28/18at 08:47; Admin Dose 200 MG; Start 07/28/18 at 09:00; Stop 07/30/18 at 21:01 Simethicone (Mylicon) 80 mg TID PRN PO .GAS; Start 07/27/18 at 21:00 Senna/Docusate Sodium (Senokot-S) 2 tab BID PRN PO .CONSTIPATION; Start 07/27/18 at 21:00 Magnesium Hydroxide (Milk Of Mag) 30 ml HS PRN PO .CONSTIPATION; Start 07/27/18 at 21:00 Bisacodyl (Dulcolax Supp) 10 mg DAILY PRN FL .CONSTIPATION; Start 07/27/18 at 21:00 Sodium Biphosphate/ Sodium Phosphate (Fleet Enema) 133 ml DAILY PRN [place] .CONSTIPATION; Start 07/27/18 at 21:00 Diphenhydramine HCl (Benadryl) 25 mg Q4H PRN IV .ITCHING; Start 07/27/18 at 21:00 Naloxone HCl (Narcan) 0.2 mg Q2M PRN IV .RESP RATE; Start 07/27/18 at 21:00 IV Flush (NS 3 ml) 3 ml per protocol IV ; Start 07/27/18 at 21:00 Aspirin (Aspirin) 81 mg DAILY PO Last administered on 07/28/18at 08:46; Admin Dose 81 MG; Start 07/28/18 at 09:00 Metoprolol Tartrate (Lopressor) 25 mg BID PO ; Start 07/28/18 at 09:00 Atorvastatin Calcium (Lipitor) 40 mg HS PO Last administered on 07/27/18at 23:11; Admin Dose 40 MG; Start 07/27/18 at 21:30 Morphine Sulfate (morphine) 2 mg Q4H PRN IV .SEVERE PAIN 7-10; Start 07/27/18 at 22:00 Sodium Chloride 1,000 ml @ 100 mls/hr Q10H IV Last administered on 07/28/18at 08:58; Admin Dose 100 MLS/HR; Start 07/27/18 at 23:00 Propofol 100 ml @ 2.262 mls/ hr Q12H IV Last administered on 07/28/18at 02:15; Admin Dose 4.62 MLS/HR; Start 07/28/18 at 01:30 Phenylephrine HCl 40 mg/Dextrose 250 ml @ 37.5 mls/hr TITRATE IV Last administered on 07/28/18at 03:12; Admin Dose 11.25 MLS/HR; Start 07/28/18 at 02:30 CAROL PHILLIPS Jul 28, 2018 09:08
[2018-07-28] MEDS: AMANTADINE 100 MG CAP PO SCH ×2 (10:17→20:42)
--- NOTE | 2018-07-28 11:06 | NUR ---
PT NOTE , ORDER ACKNOWLEDGED, CHART REVIEW COMPLETED , DISCUSSED THIS CASE WITH RN , PATIENT CURRENTLY INTUBATED , PLAN TO HOLD PT UNTIL EXTUBATION , PLAN TO FOLLOW UP IN PM VS TOMORROW .
--- NOTE | 2018-07-28 11:50 | PN ---
DATE: 07/28/2018 SUBJECTIVE: The patient is intubated and poorly responsive. Vital signs stable. OBJECTIVE: VITAL SIGNS: Afebrile. LUNGS: Mild rhonchi. HEART: Regular rate and rhythm. ABDOMEN: Soft, nontender. EXTREMITIES: No clubbing, cyanosis, or edema. ASSESSMENT: 1. An 88-year-old male status full left hip hemiarthroplasty following acute on chronic fracture. 2. Acute respiratory failure. 3. Severe Parkinson's dementia. 4. Acute anemia, stable post-transfusion. 5. Hypertension. 6. Type 2 diabetes mellitus. PLAN: 1. Wean off the ventilator. 2. Wean off sedation. 3. Continue postoperative care. 4. Pulmonary consultation, pulmonary and orthopedic followup is appreciated. Dictated By: KEELY IBARRA/RONN Conf#: [id number] DID#: [id number] CC: KEELY HIGGINBOTHAM MD;*EndCC*
--- NOTE | 2018-07-28 13:23 | NUR ---
Called Dr. Condon to report ABG, new order received to extubate patient. RT notified.
--- NOTE | 2018-07-28 14:14 | NUR ---
ACUTE REHAB CONSULT ARU Consult orders received, verified. Patient still intubated; Awaiting PT evaluation for referral determination. We will continue to follow the case. Thank you for the referral. Tim Kinsey [facility] [id number]
--- NOTE | 2018-07-28 15:16 | NUR ---
OT NOTE: OT order received, chart reviewed, Hold OT due to pt being intubated. Will f/u tomorrow.
--- NOTE | 2018-07-28 18:15 | NUR ---
EOSS Patient extubated today, no respiratory distress noted, cont. on Oxygen via NC at 3L/M. Patient confused, pulling lines, continues on soft wrist restraint. Family at the bedside, updated patient's condition. Throughout the shift no acute events noted. Will cont. plan of care.
--- NOTE | 2018-07-28 18:33 | CONS ---
Assessment/Plan Assessment/Plan Hospital Course (Demo Recall) Hip fracture status post ORIF PVCs Hypotensionresolved Parkinson's -Telemetry reviewed with frequent PVCs earlier today which have since resolved. Patient currently sinus rhythm. Patient has been weaned off IV pressors. Review of medication list, patient is on 2 beta blockers and MUNA inhibitor. Would DC 1 of the beta-blockers and MUNA inhibitor. If blood pressure and heart rate tolerates, would restart beta-yahir. Check echocardiogram Consultation Date/Type/Reason Admit Date/Time Jul 26, 2018 at 19:26 Type of Consult Cardiology Reason for Consultation Arrhythmia Date/Time of Note DATE: 07/28/18 TIME: 18:25 Hx of Present Illness This is an 88-year-old male who had a mechanical fall with hip fracture. Patient is status post ORIF. Patient with episodes of hypotension requiring IV pressor frequent PVCs seen on telemetry. Given the above, cardiology condition was requested. Patient has since been extubated, he is currently off IV pressors. Denies any current shortness of breath, palpitations or dizziness. 12 point review of systems was performed with all pertinent positives and negatives mentioned above all else negative Past Medical History Parkinson's Medical History: hypertension Home Meds Reported Medications Tamsulosin Hcl* (Tamsulosin Hcl*) 0.4 Mg Cap.er.24h, 0.4 MG PO HS, CAP 07/26/18 Aspirin (Low Dose Aspirin) 81 Mg Tablet.dr, 81 MG PO DAILY, #30 TAB 07/26/18 Pramipexole* (Mirapex*) 0.5 Mg Tablet, 0.5 MG PO FIVE TIMES DAILY, TAB 07/26/18 Lisinopril* (Lisinopril*) 5 Mg Tablet, 5 MG PO DAILY, #30 TAB 07/26/18 Atenolol* (Atenolol*) 50 Mg Tablet, 50 MG PO DAILY, #30 TAB 07/26/18 Naloxegol Oxalate (Movantik) 25 Mg Tablet, 25 MG PO DAILY, TAB 07/26/18 Amantadine Hcl* (Amantadine Hcl*) 100 Mg Capsule, 100 MG PO BID, #60 CAP 07/26/18 Metformin Hcl* (Metformin Hcl*) 500 Mg Tablet, 500 MG PO WITH BREAKFAST DINNE, #60 TAB 07/26/18 Atorvastatin Calcium* (Atorvastatin Calcium*) 20 Mg Tablet, 20 MG PO QHS, #30 TAB 07/26/18 Thomson-3 Acid Ethyl Esters (Lovaza) 1 Gm Capsule, 2 GM PO BID, CAP 07/26/18 Entacapone* (Entacapone*) 200 Mg Tablet, 200 MG PO QID, TAB 07/26/18 Carbidopa-Levodopa* (Sinemet CR*) 50-200 Mg Tabsr, 1 TAB PO QID, TAB 07/26/18 Medications Current Medications Dextrose/Sodium Chloride 1,000 ml @ 75 mls/hr [id number] IV Last administered on 07/28/18at 07:49; Admin Dose 75 MLS/HR; Start 07/26/18 at 18:44 IV Flush (NS 3 ml) 3 ml PER PROTOCOL IV ; Start 07/26/18 at 19:00 Acetaminophen (Tylenol Tab) 650 mg Q6H PRN PO .PAIN 1-3 OR TEMP; Start 07/26/18 at 19:00 Docusate Sodium (Colace) 100 mg Q12H PRN PO .CONSTIPATION; Start 07/26/18 at 19:00 Zolpidem Tartrate (Ambien) 5 mg QHS PRN PO .INSOMNIA Last administered on 07/26/18at 22:53; Admin Dose 5 MG; Start 07/26/18 at 19:00 Famotidine (Pepcid) 20 mg Q24H PO Last administered on 07/27/18at 22:54; Admin Dose 20 MG; Start 07/26/18 at 21:00 Amantadine HCl (Symmetrel) 100 mg BID PO Last administered on 07/28/18at 10:17; Admin Dose 100 MG; Start 07/26/18 at 21:00 Atenolol (Tenormin) 50 mg DAILY PO ; Start 07/27/18 at 09:00 Entacapone (Comtan) 200 mg QID PO Last administered on 07/28/18at 17:19; Admin Dose 200 MG; Start 07/26/18 at 21:00 Lisinopril (Zestril) 5 mg DAILY PO ; Start 07/27/18 at 09:00 Pramipexole (Mirapex) 0.5 mg DAILY PO Last administered on 07/28/18at 08:48; Admin Dose 0.5 MG; Start 07/27/18 at 09:00 Tamsulosin HCl (Flomax) 0.4 mg HS PO Last administered on 07/27/18at 23:12; Admin Dose 0.4 MG; Start 07/26/18 at 21:00 Carbidopa/Levodopa (Sinemet Cr (25/ 100)) 2 tab QID PO Last administered on 07/28/18at 17:19; Admin Dose 2 TAB; Start 07/26/18 at 21:41 Oxycodone HCl (Roxicodone) 15 mg Q4H PRN PO .PAIN; Start 07/27/18 at 21:00 Oxycodone HCl (Roxicodone) 10 mg Q4H PRN PO .PAIN; Start 07/27/18 at 21:00 Oxycodone HCl (Roxicodone) 5 mg Q4H PRN PO .PAIN; Start 07/27/18 at 21:00 Hydromorphone HCl (Dilaudid) 1 mg Q3H PRN IV .BREAKTHROUGH PAIN; Start 07/27/18 at 21:00 Acetaminophen (Tylenol Tab) 1,000 mg Q8 PO ; Start 07/28/18 at 22:00 Ondansetron HCl (Zofran Inj) 4 mg Q4H PRN IV NAUSEA/VOMITING; Start 07/28/18 at 21:00 Vancomycin HCl 250 ml @ 125 mls/hr Q12H IVPB Last administered on 07/28/18at 17 :19; Admin Dose 125 MLS/HR; Start 07/28/18 at 06:00; Stop 07/28/18 at 19:59 Gabapentin (Neurontin) 300 mg QHS PO Last administered on 07/27/18at 22:54; Admin Dose 300 MG; Start 07/27/18 at 21:00 Pantoprazole (Protonix Tab) 40 mg DAILY@06 PO Last administered on 07/28/18at 06:13; Admin Dose 40 MG; Start 07/28/18 at 06:00 Docusate Sodium (Colace) 200 mg BID PO Last administered on 07/28/18at 08:47; Admin Dose 200 MG; Start 07/28/18 at 09:00; Stop 07/30/18 at 21:01 Simethicone (Mylicon) 80 mg TID PRN PO .GAS; Start 07/27/18 at 21:00 Senna/Docusate Sodium (Senokot-S) 2 tab BID PRN PO .CONSTIPATION; Start 07/27/18 at 21:00 Magnesium Hydroxide (Milk Of Mag) 30 ml HS PRN PO .CONSTIPATION; Start 07/27/18 at 21:00 Bisacodyl (Dulcolax Supp) 10 mg DAILY PRN ND .CONSTIPATION; Start 07/27/18 at 21:00 Sodium Biphosphate/ Sodium Phosphate (Fleet Enema) 133 ml DAILY PRN ND .CONSTIPATION; Start 07/27/18 at 21:00 Diphenhydramine HCl (Benadryl) 25 mg Q4H PRN IV .ITCHING; Start 07/27/18 at 21:00 Naloxone HCl (Narcan) 0.2 mg Q2M PRN IV .RESP RATE; Start 07/27/18 at 21:00 IV Flush (NS 3 ml) 3 ml per protocol IV ; Start 07/27/18 at 21:00 Aspirin (Aspirin) 81 mg DAILY PO Last administered on 07/28/18at 08:46; Admin Dose 81 MG; Start 07/28/18 at 09:00 Metoprolol Tartrate (Lopressor) 25 mg BID PO ; Start 07/28/18 at 09:00 Atorvastatin Calcium (Lipitor) 40 mg HS PO Last administered on 07/27/18at 2 3:11; Admin Dose 40 MG; Start 07/27/18 at 21:30 Morphine Sulfate (morphine) 2 mg Q4H PRN IV .SEVERE PAIN 7-10; Start 07/27/18 at 22:00 Sodium Chloride 1,000 ml @ 100 mls/hr Q10H IV Last administered on 07/28/18at 08:58; Admin Dose 100 MLS/HR; Start 07/27/18 at 23:00 Phenylephrine HCl 40 mg/Dextrose 250 ml @ 37.5 mls/hr TITRATE IV Last administered on 07/28/18at 03:12; Admin Dose 11.25 MLS/HR; Start 07/28/18 at 02:30 Allergies: Coded Allergies: No Known Allergy (Unverified , 07/26/18) Past Surgical History Past Surgical Hx: noncontributory Family History Significant Family History: no pertinent family hx Social History Alcohol Use: none Smoking Status: Former smoker Drug Use: none Exam/Review of Systems Vital Signs Vitals Vital Signs Date Temp Pulse Resp B/P (MAP) Pulse Ox O2 O2 Flow FiO2 Time Delivery Rate 07/28/18 3.0 17:45 07/28/18 66 20 100/44 100 17:30 (62) 07/28/18 99.1 16:00 07/28/18 Nasal 16:00 Cannula 07/28/18 30 10:15 Intake and Output 07/27/18 07/27/18 07/28/18 1515:00 23:00 07:00 IntakeIntake Total 2675 ml 1097.98 ml OutputOutput Total 620 ml 400 ml BalanceBalance 2055 ml 697.98 ml Exam Exam Following commands, no apparent distress, family at bedside Constitutional: alert Head: normocephalic Respiratory: other (The coarse breath sounds bilaterally, no wheezing) Cardiovascular: regular rate and rhythm, other (S1-S2 heard) Gastrointestinal: soft, non-tender, bowel sounds Extremities: edema (Trace) Labs Result Diagram: 07/28/18 0340 07/28/18 0340 Results 24hrs Laboratory Tests Test 07/27/18 19:16 07/27/18 19:20 07/27/18 19:26 07/28/18 02:17 Magnesium Level 2.2 Troponin I 0.013 White Blood 3.8 #L Count Red Blood Count 2.62 #L Hemoglobin 8.4 #L Hematocrit 25.1 #L Mean 95.8 Corpuscular Volume Mean 32.1 Corpuscular Hemoglobin Mean 33.5 Corpuscular Hemoglobin Conc ent Red Cell 12.8 Distribution Width Platelet Count 88 #L Mean Platelet 10.6 H Volume Immature 0.300 Granulocytes % Neutrophils % 66.5 Lymphocytes % 24.6 Monocytes % 6.3 Eosinophils % 1.8 Basophils % 0.5 Nucleated Red 0.0 Blood Cells % Immature 0.010 Granulocytes # Neutrophils # 2.5 Lymphocytes # 0.9 Monocytes # 0.2 L Eosinophils # 0.1 Basophils # 0.0 Nucleated Red 0.0 Blood Cells # Prothrombin 17.2 H Time Prothrombin 1.3 Time Ratio INR 1.39 International Normalized Rati o Activated 41.6 H Partial Thrombo plast Time Sodium Level 143 Potassium Level 3.3 L Chloride Level 108 Carbon Dioxide 24 Level Anion Gap 11 Blood Urea 12 # Nitrogen Creatinine 0.69 Est Glomerular Filtrat Rate mL/min Glucose Level 115 # Calcium Level 10.3 H Total Bilirubin 1.1 Direct 0.70 #H Bilirubin Indirect 0.4 Bilirubin Aspartate Amino 30 Transf (AST/SGO T) Alanine 17 Aminotransferas e (ALT/SGPT) Alkaline 60 Phosphatase Total Protein 6.1 Albumin 3.8 Globulin 2.30 Albumin/Globuli 1.65 n Ratio Blood Gas Blood arterial Blood Specimen arterial Source Arterial Blood 07/27/2018 7:20: 07/28/2018 3:06 Date Drawn 00 PM :51 AM Arterial Blood 7.448 7.329 L pH (Temp corrected ) Arterial Blood 33.1 L 36.0 pCO2 (Temp correct) Arterial Blood 417.9 H 390.1 H pO2 (Temp corrected ) Arterial Blood 22.4 18.5 L HCO3 Arterial Blood -1.2 -6.7 L Base Excess Arterial Blood 99.1 99.2 Oxygen Saturati on Natanael Test ACCEPTAB N/A Arterial Blood Right Radial A-Line Gas Puncture Site Arterial 0.3 0.3 Blood Carboxyhe moglobin Arterial Blood 0.4 0.4 Methemoglobin Blood Gas A-a 262.0 H O2 Differential Oxyhemoglobin 98.4 98.5 Percent Blood Gas 37.0 37.0 Temperature Blood Gas 14.0 12.0 Respiration Rate Blood Gas 14 13 Actual Respiration Rat e Blood Gas VENT - ANESTH VENT - AC Modality FiO2 100.0 60.0 Blood Gas Tidal 550.0 550.0 Volume Blood Gas Low 5.0 5.0 PEEP Setting Blood Gas RTR Staci Torres [facility] Notified Whom Blood Gas 07/27/2018 7:32: 07/28/2018 3:16 Notified Time 00 PM :11 AM Blood Gas Dominador Critical Value Will [facility] Read Back Test 07/28/18 03:40 07/28/18 04:56 07/28/18 12:20 White Blood 4.3 L Count Red Blood Count 2.98 L Hemoglobin 9.1 L Hematocrit 27.7 L Mean 93.0 Corpuscular Volume Mean 30.5 Corpuscular Hemoglobin Mean 32.9 Corpuscular Hemoglobin Conc ent Red Cell 13.9 Distribution Width Platelet Count 95 L Mean Platelet 11.0 H Volume Immature 0.200 Granulocytes % Neutrophils % 91.0 H Lymphocytes % 4.2 L Monocytes % 4.4 Eosinophils % 0.0 Basophils % 0.2 Nucleated Red 0.0 Blood Cells % Immature 0.010 Granulocytes # Neutrophils # 3.9 Lymphocytes # 0.2 L Monocytes # 0.2 L Eosinophils # 0.0 Basophils # 0.0 Nucleated Red 0.0 Blood Cells # Prothrombin 16.9 H Time Prothrombin 1.3 Time Ratio INR 1.36 International Normalized Rati o Sodium Level 140 Potassium Level 5.2 H Chloride Level 109 Carbon Dioxide 21 Level Anion Gap 10 Blood Urea 15 Nitrogen Creatinine 0.73 Est Glomerular Filtrat Rate mL/min Glucose Level 231 #H Calcium Level 8.6 Troponin I 0.014 Lab Scanned BLOOD TRANSFUSI Report ON Blood Gas Blood arterial Specimen Source Arterial Blood 07/28/2018 12:57 Date Drawn :35 PM Arterial Blood 7.413 pH (Temp corrected ) Arterial Blood 34.4 L pCO2 (Temp correct) Arterial Blood 130.5 H pO2 (Temp corrected ) Arterial Blood 21.5 L HCO3 Arterial Blood -2.6 Base Excess Arterial Blood 98.3 Oxygen Saturati on Natanael Test ACCEPTAB Arterial Blood Right Radial Gas Puncture Site Arterial 0.3 Blood Carboxyhe moglobin Arterial Blood 0.3 Methemoglobin Blood Gas A-a 43.0 H O2 Differential Oxyhemoglobin 97.7 Percent Blood Gas 37.0 Temperature Blood Gas 15 Actual Respiration Rat e Blood Gas VENT - CPAP Modality FiO2 30.0 Blood Gas Low 5.0 PEEP Setting Blood Gas 10 Pressure Support Blood Gas TM Notified Whom Blood Gas 07/28/2018 1:09: Notified Time 13 PM Imaging Imaging ECG demonstrates sinus rhythm at 87 bpm, QRS 98 ms, nonspecific ST abnormalities Medications Medications Current Medications Dextrose/Sodium Chloride 1,000 ml @ 75 mls/hr [id number] IV Last administered on 07/28/18at 07:49; Admin Dose 75 MLS/HR; Start 07/26/18 at 18:44 IV Flush (NS 3 ml) 3 ml PER PROTOCOL IV ; Start 07/26/18 at 19:00 Acetaminophen (Tylenol Tab) 650 mg Q6H PRN PO .PAIN 1-3 OR TEMP; Start 07/26/18 at 19:00 Docusate Sodium (Colace) 100 mg Q12H PRN PO .CONSTIPATION; Start 07/26/18 at 19:00 Zolpidem Tartrate (Ambien) 5 mg QHS PRN PO .INSOMNIA Last administered on 07/26/18at 22:53; Admin Dose 5 MG; Start 07/26/18 at 19:00 Famotidine (Pepcid) 20 mg Q24H PO Last administered on 07/27/18at 22:54; Admin Dose 20 MG; Start 07/26/18 at 21:00 Amantadine HCl (Symmetrel) 100 mg BID PO Last administered on 07/28/18at 10:17; Admin Dose 100 MG; Start 07/26/18 at 21:00 Atenolol (Tenormin) 50 mg DAILY PO ; Start 07/27/18 at 09:00 Entacapone (Comtan) 200 mg QID PO Last administered on 07/28/18at 17:19; Admin Dose 200 MG; Start 07/26/18 at 21:00 Lisinopril (Zestril) 5 mg DAILY PO ; Start 07/27/18 at 09:00 Pramipexole (Mirapex) 0.5 mg DAILY PO Last administered on 07/28/18at 08:48; Admin Dose 0.5 MG; Start 07/27/18 at 09:00 Tamsulosin HCl (Flomax) 0.4 mg HS PO Last administered on 07/27/18at 23:12; Admin Dose 0.4 MG; Start 07/26/18 at 21:00 Carbidopa/Levodopa (Sinemet Cr (25/ 100)) 2 tab QID PO Last administered on 07/28/18at 17:19; Admin Dose 2 TAB; Start 07/26/18 at 21:41 Oxycodone HCl (Roxicodone) 15 mg Q4H PRN PO .PAIN; Start 07/27/18 at 21:00 Oxycodone HCl (Roxicodone) 10 mg Q4H PRN PO .PAIN; Start 07/27/18 at 21:00 Oxycodone HCl (Roxicodone) 5 mg Q4H PRN PO .PAIN; Start 07/27/18 at 21:00 Hydromorphone HCl (Dilaudid) 1 mg Q3H PRN IV .BREAKTHROUGH PAIN; Start 07/27/18 at 21:00 Acetaminophen (Tylenol Tab) 1,000 mg Q8 PO ; Start 07/28/18 at 22:00 Ondansetron HCl (Zofran Inj) 4 mg Q4H PRN IV NAUSEA/VOMITING; Start 07/28/18 at 21:00 Vancomycin HCl 250 ml @ 125 mls/hr Q12H IVPB Last administered on 07/28/18at 17:19; Admin Dose 125 MLS/HR; Start 07/28/18 at 06:00; Stop 07/28/18 at 19:59 Gabapentin (Neurontin) 300 mg QHS PO Last administered on 07/27/18at 22:54; Admin Dose 300 MG; Start 07/27/18 at 21:00 Pantoprazole (Protonix Tab) 40 mg DAILY@06 PO Last administered on 07/28/18at 06:13; Admin Dose 40 MG; Start 07/28/18 at 06:00 Docusate Sodium (Colace) 200 mg BID PO Last administered on 07/28/18at 08:47; Admin Dose 200 MG; Start 07/28/18 at 09:00; Stop 07/30/18 at 21:01 Simethicone (Mylicon) 80 mg TID PRN PO .GAS; Start 07/27/18 at 21:00 Senna/Docusate Sodium (Senokot-S) 2 tab BID PRN PO .CONSTIPATION; Start 07/27/18 at 21:00 Magnesium Hydroxide (Milk Of Mag) 30 ml HS PRN PO .CONSTIPATION; Start 07/27/18 at 21:00 Bisacodyl (Dulcolax Supp) 10 mg DAILY PRN ND .CONSTIPATION; Start 07/27/18 at 21:00 Sodium Biphosphate/ Sodium Phosphate (Fleet Enema) 133 ml DAILY PRN ND .C ONSTIPATION; Start 07/27/18 at 21:00 Diphenhydramine HCl (Benadryl) 25 mg Q4H PRN IV .ITCHING; Start 07/27/18 at 21:00 Naloxone HCl (Narcan) 0.2 mg Q2M PRN IV .RESP RATE; Start 07/27/18 at 21:00 IV Flush (NS 3 ml) 3 ml per protocol IV ; Start 07/27/18 at 21:00 Aspirin (Aspirin) 81 mg DAILY PO Last administered on 07/28/18at 08:46; Admin Dose 81 MG; Start 07/28/18 at 09:00 Metoprolol Tartrate (Lopressor) 25 mg BID PO ; Start 07/28/18 at 09:00 Atorvastatin Calcium (Lipitor) 40 mg HS PO Last administered on 07/27/18at 23:11; Admin Dose 40 MG; Start 07/27/18 at 21:30 Morphine Sulfate (morphine) 2 mg Q4H PRN IV .SEVERE PAIN 7-10; Start 07/27/18 at 22:00 Sodium Chloride 1,000 ml @ 100 mls/hr Q10H IV Last administered on 07/28/18at 08:58; Admin Dose 100 MLS/HR; Start 07/27/18 at 23:00 Phenylephrine HCl 40 mg/Dextrose 250 ml @ 37.5 mls/hr TITRATE IV Last administered on 07/28/18at 03:12; Admin Dose 11.25 MLS/HR; Start 07/28/18 at 02:30 Jae Layne DO Jul 28, 2018 18:33
--- NOTE | 2018-07-28 18:46 | RADRPT ---
Echocardiogram Report Patient Name: MARIPOSA PARKSAPatient ID: [id number] : 1930 (88y 5m)Study Date: 07/28/2018 11:11:23 AM Gender: MAccession #: [id number] Tech: CT Location: Ref.Physician: DORY NESS Height(Cm): BSA: Weight(Kg): Quality: GoodAccount #: Procedures: Echocardiographic Report: Transthoracic echocardiogram with complete 2D, M-Mode, and doppler examination. Indications: Evaluate Left Ventricular function. Measurements: 2D/M Mode Doppler Measurement Value Normal Range Measurement Value Normal Range LVIDd 2D 4.6 [ 4.2 - 5.8 ] cm ANTHONY Vmax 1.4 [ 2.0 - 4.0 ] cm2 LVIDs 2D 2.7 [ 2.5 - 4.0 ] cm ANTHONY VTI 1.2 [ 2.0 - 4.0 ] cm2 LVPWd 2D 1.1 [ 0.6 - 1.0 ] cm AV Mean Sathish 1.9 [ 70.0 - 90.0 ] cm/sec IVSd 2D 1.0 [ 0.6 - 1.0 ] cm AV Mean PG 16.0 [ 2.0 - 4.0 ] mmHg IVS/LVPW 2D 0.9 ratio AV Peak Sathish 2.7 [ 100.0 - 170.0 ] cm/sec AoR Diam 2D 2.8 [ 2.6 - 3.4 ] cm AV Peak PG 28.0 [ 2.0 - 9.0 ] mmHg LA/Ao 2D 1 ratio AV VTI 70.6 cm LA Dimen 2D 3.7 [ 3.0 - 4.0 ] cm LVOT Mean Sathish 0.7 [ 60.0 - 80.0 ] cm/sec LVOT Diam 2.0 [ 2.3 - 2.9 ] cm LVOT Mean PG 2.0 [ 1.0 - 3.0 ] mmHg LVOT Area 3.1 cm2 LVOT Peak Sathish 1.1 [ 70.0 - 110.0 ] cm/sec LVOT Peak PG 5.0 [ 2.0 - 6.0 ] mmHg LVOT VTI 26.9 [ 20.0 - 30.0 ] cm MV E Peak Sathish 1.0 [ 60.0 - 130.0 ] cm/sec MV A Peak Sathish 1.1 [ 100.0 - 120.0 ] cm/sec MV E/A 1.0 [ 0.8 - 1.5 ] ratio MV Decel Time 204 [ 104 - 258 ] msec Lat E` Sathish 0.1 [ 10.0 - 15.0 ] cm/sec MV E/A 1.0 [ 0.8 - 1.5 ] ratio TR Peak Sathish 2.3 [ 100.0 - 280.0 ] cm/sec TR Peak PG 22.0 mmHg RVSP 30.0 [ 10.0 - 36.0 ] mmHg RA Pressure 8.0 mmHg Findings: Left Ventricle: Overall, normal left ventricular systolic function. Not all segments visualized. Normal left ventricular cavity size. Mild concentric left ventricular hypertrophy. Ejection fraction is visually estimated at 65 %. Abnormal Diastolic Function. Right Ventricle: Normal right ventricular size. Normal right ventricular systolic function. Left Atrium: The left atrium is normal in size. Right Atrium: The right atrium is normal in size. Mitral Valve: Normal appearance and function of the mitral valve with trace physiologic regurgitation. Aortic Valve: Mild aortic stenosis. Max PG 28.00 mmHg. Mean PG 16.00 mmHg. Aortic cusps appear moderately calcified. Trace aortic valve regurgitation. Tricuspid Valve: Normal appearance and function of the tricuspid valve with trace physiologic regurgitation. Estimated peak PA systolic pressure 30 mmHg. Pulmonic Valve: Pulmonic valve not well visualized. Pericardium: Normal pericardium with no significant pericardial effusion. Aorta: Normal aortic root. IVC: The IVC is not well visualized. Conclusions: Overall, normal left ventricular systolic function. Not all segments visualized. Normal left ventricular cavity size. Mild concentric left ventricular hypertrophy. Ejection fraction is visually estimated at 65 %. Abnormal Diastolic Function. Normal right ventricular size. Normal right ventricular systolic function. The left atrium is normal in size. The right atrium is normal in size. Mild aortic stenosis. Trace aortic valve regurgitation. No significant valvular stenosis or regurgitation seen of remaining visualized valves. Normal pericardium with no significant pericardial effusion. Electronically Signed By: Jae Layne 2018-07-28 18:45:23 PST
[2018-07-28] MEDS: ZOLPIDEM 5 MG TAB PO PRN (20:42)
[2018-07-28] MEDS: FAMOTIDINE 20 MG TAB PO SCH (20:42)
[2018-07-28] MEDS: ATORVASTATIN 40 MG TAB PO SCH (20:42)
[2018-07-28] MEDS: GABAPENTIN 300 MG CAP PO SCH (20:43)
[2018-07-28] MEDS: TAMSULOSIN (SR) 0.4 MG CAP PO SCH (20:43)
[2018-07-28] MEDS ORDERED: ONDANSETRON 4 MG INJ IV PRN (21:00)
[2018-07-28] MEDS: ACETAMINOPHEN 500 MG TAB PO SCH (22:54)
[2018-07-29] VITALS (23 sets, daily range): BP systolic 92–136; BP diastolic 34–64; PULSE 56–87; RESP 15–24
[2018-07-29] MEDS: DEXTROSE 5%-0.45% NACL 1,000 ML IV SCH (01:27)
[2018-07-29] MEDS: ACETAMINOPHEN 500 MG TAB PO SCH ×3 (05:27→21:58)
[2018-07-29] MEDS: PANTOPRAZOLE (EC) 40 MG TAB PO SCH (05:27)
--- NOTE | 2018-07-29 06:54 | NUR ---
Shift Summary Received patient on Nasal Cannula, he was S/P Extubation during the day. He's awake, verbal and confused. Through the night oxygen saturation stayed okay eventually placed on Room air because pt. kept moving his head in an effort to get nasal cannula out and his saturation remained normal while oxygen was off. Adequate amount of urine output noted via [place] Cath. Abduction pillow still in place as ordered. Pt's for swallow eval. this morning. Continues on proper plan of care.
[2018-07-29] MEDS: SOD CHLORIDE 0.9% 1,000 ML IV SCH (07:06)
[2018-07-29] MEDS: ENTACAPONE 200 MG TAB PO SCH ×4 (08:46→20:44)
[2018-07-29] MEDS: ASPIRIN 81 MG TAB PO SCH (08:46)
[2018-07-29] MEDS: PRAMIPEXOLE 0.25 MG TAB PO SCH (08:46)
[2018-07-29] MEDS: DOCUSATE SODIUM 100 MG CAP PO SCH ×2 (08:46→20:44)
[2018-07-29] MEDS: AMANTADINE 100 MG CAP PO SCH ×2 (08:46→20:43)
[2018-07-29] MEDS: METOPROLOL 25 MG TAB PO SCH ×2 (08:47→20:43)
--- NOTE | 2018-07-29 09:05 | NUR ---
PHARMACY COMMUNICATION REQUESTED SINEMET MEDICATION. ONLY 1 TAB AVAILABLE IN OMNICELL -- PRESCRIPTION IS FOR 2 TABS. PHARMACY TO SEND TO UNIT. WILL ADMINISTER MEDICATION WHEN RECEIVED.
--- NOTE | 2018-07-29 09:12 | NUR ---
MD COMMUNICATION UPDATED DR. HIGGINBOTHAM ON PATIENT' STATUS. CLARIFIED ORDERS FOR IV FLUIDS, AND ORDER TO DISCONTINUE FLUIDS DUE TO CONCERN FOR FLUID OVERLOAD. REQUESTED DOCTOR TO RENEW SOFT LIMB RESTRAINTS BY EXPIRATION TODAY AT 1031. PATIENT TO TRANSFER TO ORTHO UNIT; ORDER INPUTTED.
--- NOTE | 2018-07-29 09:28 | PN ---
DATE: 07/29/2018 SUBJECTIVE: The patient was successfully extubated. He remains disoriented and confused at times. PHYSICAL EXAMINATION: Vital signs stable. LUNGS: Clear to auscultation bilaterally. HEART: Regular rate and rhythm. ABDOMEN: Soft, nontender, nondistended, normoactive bowel sounds. EXTREMITIES: No clubbing, cyanosis, or edema. LABORATORY DATA: Hemoglobin is 8.2, platelet count is 104,000. White blood cell count is 3.4. Basic metabolic panel is normal. ASSESSMENT: 1. An 88-year-old male with acute on chronic left hip fracture. 2. Postop day 2, left hip hemiarthroplasty. 3. Severe Parkinson's dementia. 4. Frequent PVCs. 5. Hypertension. 6. Altered mental status. 7. Benign prostatic hyperplasia. PLAN: 1. Transfer to med/surg. Continue present medications. Start physical therapy. 2. [facility]. Plan of care was discussed with his daughter telephonically. Dictated By: KEELY IBARRA/NTS Conf#: [id number] DID#: [id number] CC: KEELY HIGGINBOTHAM MD;*EndCC*
--- NOTE | 2018-07-29 09:34 | CONS ---
Assessment/Plan Assessment/Plan Assessment/Plan (Daily) Assessment recommendations; 1. Patient admitted with a fall resulting in left femoral fracture status post ORIF. 2. Status post extubation yesterday with stable cardiopulmonary status. 3. Advanced dementia. 4. History of systemic hypertension. 5. Neuropathy. 6. Advanced Parkinson's disease. 7. BPH. 8. Anemia and thrombocytopenia. Continue on supportive care. Transfer to medical floor. Consultation Date/Type/Reason Admit Date/Time Jul 26, 2018 at 19:26 Initial Consult Date 07/28/18 Type of Consult Pulmonary/critical care Patient is a 88-year-old male who was brought into the hospital after sustaining a fall resulting in left femoral fracture. Patient underwent ORIF last evening. Patient could not be extubated immediately and was transferred to ICU intubated. By the time I saw him over here the patient is orally intubated and is currently still under sedative effect. Patient did not appear to be in any distress. Past medical history; 1. Apparently advanced dementia. 2. BPH. 3. Hypertension. 4. Neuropathy. 5. Hyperlipidemia. 6. Parkinson's disease. 7. Diabetes. Medications; reviewed. Patient is off sedation for the last hour and a half. Allergies; none. Social history, family history, occupational history is not available. Review of systems; currently unable to be obtained. General exam; elderly male, orally intubated, sedated. Currently in no distress. Date/Time of Note DATE: 07/29/18 TIME: 09:31 24 HR Interval Summary Free Text/Dictation Patient's condition is stable. Was successfully extubated yesterday afternoon. Patient has remained hemodynamically stable also exhibiting stable pulmonary status. General exam; elderly male, awake but noncommunicative due to dementia. Currently in no distress. Exam/Review of Systems Exam Vitals Vital Signs Date Temp Pulse Resp B/P (MAP) Pulse Ox O2 O2 Flow FiO2 Time Delivery Rate 07/29/18 73 21 118/51 97 Nasal 05:00 (73) Cannula 07/29/18 3.0 04:45 07/29/18 99.4 04:00 07/28/18 30 10:15 Intake and Output 07/28/18 07/28/18 07/29/18 1515:00 23:00 07:00 IntakeIntake Total 1589.8 ml 975 ml 800 ml OutputOutput Total 660 ml 1875 ml 1270 ml BalanceBalance 929.8 ml -900 ml -470 ml Exam HEENT exam; supple neck, no JVD. No lymphadenopathy. Midline trachea. No thyromegaly. Patient is edentulous. Nasogastric tube in place. Chest exam; diminished breath sounds throughout. S1-S2 audible, no murmurs. Regular rhythm. Abdomen exam; soft, nondistended. No organomegaly. Bowel sounds audible. Extremity exam; no peripheral edema clubbing. Dressing applied to left lateral thigh. JAVA USER INTERFACE DEVELOPER exam; patient is awake but noncommunicative. Results Result Diagram: 07/29/18 0435 07/29/18 0435 Results 24hrs Laboratory Tests Test 07/28/18 12:20 07/29/18 04:35 Blood Gas Specimen Source Blood arterial Arterial Blood Date Drawn 07/28/2018 12:57:35 PM Arterial Blood pH (Temp corrected) 7.413 Arterial Blood pCO2 (Temp correct) 34.4 L Arterial Blood pO2 (Temp corrected) 130.5 H Arterial Blood HCO3 21.5 L Arterial Blood Base Excess -2.6 Arterial Blood Oxygen Saturation 98.3 Natanael Test ACCEPTAB Arterial Blood Gas Puncture Site Right Radial Arterial Blood Carboxyhemoglobin 0.3 Arterial Blood Methemoglobin 0.3 Blood Gas A-a O2 Differential 43.0 H Oxyhemoglobin Percent 97.7 Blood Gas Temperature 37.0 Blood Gas Actual Respiration Rate 15 Blood Gas Modality VENT - CPAP FiO2 30.0 Blood Gas Low PEEP Setting 5.0 Blood Gas Pressure Support 10 Blood Gas Notified Whom TM Blood Gas Notified Time 07/28/2018 1:09:13 PM White Blood Count 3.4 #L Red Blood Count 2.66 L Hemoglobin 8.2 L Hematocrit 24.7 L Mean Corpuscular Volume 92.9 Mean Corpuscular Hemoglobin 30.8 Mean Corpuscular Hemoglobin Concent 33.2 Red Cell Distribution Width 14.2 Platelet Count 104 L Mean Platelet Volume 10.3 Immature Granulocytes % 0.300 Neutrophils % 75.4 Lymphocytes % 14.8 L Monocytes % 7.7 Eosinophils % 1.5 Basophils % 0.3 Nucleated Red Blood Cells % 0.0 Immature Granulocytes # 0.010 Neutrophils # 2.6 Lymphocytes # 0.5 L Monocytes # 0.3 Eosinophils # 0.1 Basophils # 0.0 Nucleated Red Blood Cells # 0.0 Prothrombin Time 16.6 H Prothrombin Time Ratio 1.3 INR International Normalized Ratio 1.33 Sodium Level 143 Potassium Level 3.7 Chloride Level 111 H Carbon Dioxide Level 26 Anion Gap 6 Blood Urea Nitrogen 11 Creatinine 0.66 Est Glomerular Filtrat Rate mL/min Glucose Level 94 # Calcium Level 8.3 L Medications Medication Current Medications IV Flush (NS 3 ml) 3 ml PER PROTOCOL IV ; Start 07/26/18 at 19:00 Acetaminophen (Tylenol Tab) 650 mg Q6H PRN PO .PAIN 1-3 OR TEMP; Start 07/26/18 at 19:00 Docusate Sodium (Colace) 100 mg Q12H PRN PO .CONSTIPATION; Start 07/26/18 at 19:00 Zolpidem Tartrate (Ambien) 5 mg QHS PRN PO .INSOMNIA Last administered on 07/28/18 20:42; Admin Dose 5 MG; Start 07/26/18 at 19:00 Famotidine (Pepcid) 20 mg Q24H PO Last administered on 07/28/18 20:42; Admin Dose 20 MG; Start 07/26/18 at 21:00 Amantadine HCl (Symmetrel) 100 mg BID PO Last administered on 07/29/18 08:46; Admin Dose 100 MG; Start 07/26/18 at 21:00 Entacapone (Comtan) 200 mg QID PO Last administered on 07/29/18 08:46; Admin Dose 200 MG; Start 07/26/18 at 21:00 Pramipexole (Mirapex) 0.5 mg DAILY PO Last administered on 07/29/18 08:46; Adm in Dose 0.5 MG; Start 07/27/18 at 09:00 Tamsulosin HCl (Flomax) 0.4 mg HS PO Last administered on 07/28/18 20:43; Admin Dose 0.4 MG; Start 07/26/18 at 21:00 Carbidopa/Levodopa (Sinemet Cr (25/ 100)) 2 tab QID PO Last administered on 07/28/18 20:42; Admin Dose 2 TAB; Start 07/26/18 at 21:41 Oxycodone HCl (Roxicodone) 15 mg Q4H PRN PO .PAIN; Start 07/27/18 at 21:00 Oxycodone HCl (Roxicodone) 10 mg Q4H PRN PO .PAIN; Start 07/27/18 at 21:00 Oxycodone HCl (Roxicodone) 5 mg Q4H PRN PO .PAIN; Start 07/27/18 at 21:00 Hydromorphone HCl (Dilaudid) 1 mg Q3H PRN IV .BREAKTHROUGH PAIN; Start 07/27/18 at 21:00 Acetaminophen (Tylenol Tab) 1,000 mg Q8 PO Last administered on 07/29/18at 05:27; Admin Dose 1,000 MG; Start 07/28/18 at 22:00 Ondansetron HCl (Zofran Inj) 4 mg Q4H PRN IV NAUSEA/VOMITING; Start 07/28/18 at 21:00 Gabapentin (Neurontin) 300 mg QHS PO Last administered on 07/28/18at 20:43; Admin Dose 300 MG; Start 07/27/18 at 21:00 Pantoprazole (Protonix Tab) 40 mg DAILY@06 PO Last administered on 07/29/18at 05:27; Admin Dose 40 MG; Start 07/28/18 at 06:00 Docusate Sodium (Colace) 200 mg BID PO Last administered on 07/29/18at 08:46; Admin Dose 200 MG; Start 07/28/18 at 09:00; Stop 07/30/18 at 21:01 Simethicone (Mylicon) 80 mg TID PRN PO .GAS; Start 07/27/18 at 21:00 Senna/Docusate Sodium (Senokot-S) 2 tab BID PRN PO .CONSTIPATION; Start 07/27/18 at 21:00 Magnesium Hydroxide (Milk Of Mag) 30 ml HS PRN PO .CONSTIPATION; Start 07/27/18 at 21:00 Bisacodyl (Dulcolax Supp) 10 mg DAILY PRN [place] .CONSTIPATION; Start 07/27/18 at 21:00 Sodium Biphosphate/ Sodium Phosphate (Fleet Enema) 133 ml DAILY PRN [place] .CONSTIPATION; Start 07/27/18 at 21:00 Diphenhydramine HCl (Benadryl) 25 mg Q4H PRN IV .ITCHING; Start 07/27/18 at 21:00 Naloxone HCl (Narcan) 0.2 mg Q2M PRN IV .RESP RATE; Start 07/27/18 at 21:00 IV Flush (NS 3 ml) 3 ml per protocol IV ; Start 07/27/18 at 21:00 Aspirin (Aspirin) 81 mg DAILY PO Last administered on 07/29/18at 08:46; Admin Dose 81 MG; Start 07/28/18 at 09:00 Atorvastatin Calcium (Lipitor) 40 mg HS PO Last administered on 07/28/18at 20:42; Admin Dose 40 MG; Start 07/27/18 at 21:30 Morphine Sulfate (morphine) 2 mg Q4H PRN IV .SEVERE PAIN 7-10; Start 07/27/18 at 22:00 Phenylephrine HCl 40 mg/Dextrose 250 ml @ 37.5 mls/hr TITRATE IV Last administered on 07/28/18at 03:12; Admin Dose 11.25 MLS/HR; Start 07/28/18 at 02:30 Metoprolol Tartrate (Lopressor) 25 mg BID PO Last administered on 07/29/18at 08:47; Admin Dose 25 MG; Start 07/29/18 at 09:00 CAROL PHILLIPS Jul 29, 2018 09:34
[2018-07-29] MEDS: CARBIDOPA/LEVODOPA 25-100 (CR) TAB PO SCH ×4 (10:16→20:44)
--- NOTE | 2018-07-29 10:28 | NUR ---
Bedside swallow evaluation completed: Patient is an 88 y/o male presenting s/p fall, resulting in left femoral neck fracture and is now s/p ORIF and intubation. During sx, anesthesia recommended leaving the patient intubated 2/2 EKG changes and significant hospital fluid shifts. He was transferred to the ICU and is now extubated with stable cardiopulmonary status. Medical history is significant for advanced dementia, Parkinson's disease, BPH, anemia, thrombocytopenia, systemic hypertension, neuropathy and DM type 2. He is NPO, receiving meds via NG. He is saturating WFL on room air. He is responsive, but confused and verbal output is confabulatory. Unable to maintain eye opening. Inconsistently follows commands presented in Urdu. Attempted to call family for information on baseline diet and status, however no answer. Chest x-ray (07/27/18): 1. Endotracheal tube and right internal jugular catheter in place. 2. Nasogastric tube terminating just below the diaphragm. Advancement by 10 cm is recommended. 3. Mild cardiomegaly and probable pulmonary vascular congestion. Possible trace right pleural effusion Brain CT (07/26/18): 1. Atrophy. White matter disease compatible with chronic small vessel ischemia. No intracranial hemorrhage, mass or evidence of acute transcortical infarct. 2. Right-sided tightness media. 3. Embolization coils right base of skull. Clinical correlation suggested. Oral mech: Unable to complete full exam 2/2 red. ability to follow instructions. Face symmetrical. Mild right lingual deviation with protrusion. Red. lingual ROM, suspect lingual weakness. Red. lingual coordination observed. Age appropriate hyolaryngeal excursion. Edentulous. Trials: Ice chips, thin liquids via tsp and cup, jello, pureed solids Red. bolus control within oral cavity, worse with liquids than solids. Incr. time required for bolus formation. Suspect premature spillage of thin liquids from oral cavity, however better control observed with thin by tsp than cup. Tongue pumping observed prior to initiation of the swallow, incr. with repeat swallow. No anterior labial spillage. Suspect delayed initiation of the swallow with liquids. Wet vocal quality after cup sip, discontinued trials by cup. Tolerated all other trials without overt s/s aspiration/ penetration. Maintained dry vocal quality throughout. With increased time provided between trials, initiated repeat swallows. Suspect pharyngeal residue and weakness 2/2 mult. swallows per bolus. Patient required consistent verbal and tactile prompting to sustain arousal throughout session. Pt would benefit from full trial tray prior to initiation of full diet. Pt is high risk for aspiration 2/2 cognitive status and premorbid dx of Parkinson's and dementia. Recommendations: Cont. NPO, may consider initiation of NG nutrition Cont. medications via NG ST to f/u with meal tray Maintain aspiration precautions and oral care guidelines
--- NOTE | 2018-07-29 10:30 | NUR ---
OT EVAL: Patient is an 88 y/o male presenting s/p fall, resulting in left femoral neck fracture and is now s/p ORIF Medical history is significant for advanced dementia, Parkinson's disease, BPH, anemia, thrombocytopenia, systemic hypertension, neuropathy and DM type 2. Precautions: Fall Risk, Posterior Hip Precaution PLOF: Per daughter: Pt lives with in an apartment with elevator access. Pt's cognition varied from day to day. Pt's assisted pt with showering (has shower chair) and dressing. Pt performed toileting independently. Pt ambulated without any DME. Pt owns FWW and 4WW. Pt's daughter comes periodically to assist with ADL's/IADL's. CLOF: RN cleared pt for skilled OT tx. Pt received supine in bed with stable vitals. Pt is AOx1 (person), is responsive, but confused and verbal output is confabulatory. Pt inconsistently follows commands presented in Estonian. Pt required Max A to perform Supine->sit at EOB. Seated at EOB pt demonstrated F+ balance while donning gown with Max A. Pt required Max verbal and tactile cueing to clean face with washcloth. Pt performed Sit->stand with Max Ax2 using FWW. Pt returned to bed with Max A. Pt left supine in bed with all needs met. RN notified. Pt will benefit from skilled OT tx 1x daily for 3-5x week to increase safety awareness, balance, endurance and independence with self care. Recommend d/c to SNF vs. ARU
--- NOTE | 2018-07-29 10:59 | PN ---
Date/Time of Note Date/Time of Note DATE: 07/29/18 TIME: 10:57 Assessment/Plan Lines/Catheters IV Catheter Type (from Nrs): Central Line [place] in Place (from Nrs): Yes Assessment/Plan Chief Complaint/Hosp Course 88-year-old male postop day #2 status post left hemiarthroplasty for femoral neck fracture. Patient was successfully extubated yesterday. He is in stable condition and doing well. Patient took several steps with physical therapy using walker and two-person assist. Per the ICU patient will be transferred to orthopedic floor today when beds are available. Plan: Continue medical management per cooling tower operator and medical team physical therapy. Posterior hip precautions. WBAT DVT prophylaxis: SCDs. Patient currently on aspirin for cardiac reasons. Will reevaluate for further chemoprophylaxis if necessary. Hemovac: Measure output every 8 hours. [place]: Continue for fluid management. DC on transfer to floor. DC planning: Patient will need retirement facility versus acute rehab. Subjective 24 Hr Interval Summary Patient doing well No acute events overnight Pain is well controlled Exam/Review of Systems Vital Signs Vitals Vital Signs Date Temp Pulse Resp B/P (MAP) Pulse Ox O2 O2 Flow FiO2 Time Delivery Rate 07/29/18 63 23 112/53 99 Room Air 10:00 (72) 07/29/18 99.3 08:00 07/29/18 3.0 04:45 07/28/18 30 10:15 Intake and Output 07/28/18 07/28/18 07/29/18 1515:00 23:00 07:00 IntakeIntake Total 1589.8 ml 975 ml 800 ml OutputOutput Total 660 ml 1875 ml 1495 ml BalanceBalance 929.8 ml -900 ml -695 ml Exam Free Text/Dictation Left lower extremity: Dressing: clean, dry, and intact, no erythema. Hemovac in place. Sensation intact to light touch in a sural, saphenous, deep peroneal, superficial peroneal, medial and lateral plantar nerve distribution. Motor is intact, patient able to dorsiflex and plantarflex ankle and extend and flex great toe. Dorsalis Pedis pulse +2, Brisk capillary refill. Compartments are soft. Calves non-tender to palpation bilaterally. Results Result Diagram: 07/29/185 07/29/18 0435 ALBERT SOTELO MD Jul 29, 2018 10:59
[2018-07-29] MEDS ORDERED: GLUCAGON 1 MG INJ IM PRN (11:30)
[2018-07-29] MEDS ORDERED: GLUCOSE GEL 15 GRAM TUBE BUCCAL PRN (11:30)
[2018-07-29] MEDS ORDERED: GLUCOSE GEL 15 GRAM TUBE PO PRN ×2 (11:30)
[2018-07-29] MEDS ORDERED: DEXTROSE 50% 50 ML SYRINGE IV PRN ×2 (11:30)
--- NOTE | 2018-07-29 11:36 | NUR ---
PT EVALUATION , Patient is an 88 y/o male presenting s/p fall, resulting in left femoral neck fracture and is now s/p lt ran and intubation now is in ICU and extubated with stable cardiopulmonary status. Medical history is significant for advanced dementia, Parkinson's disease, BPH, anemia, thrombocytopenia, systemic hypertension, neuropathy and DM type 2. He is NPO, receiving medications via NG. He is saturating WFL on room air. He is responsive, but confused and verbal output is confabulatory. Unable to maintain eye opening. Inconsistently follows commands presented in Albanian. Patient found in bed with ABDUCTION PILLOW B/T LEGS ,RN and MD cleared for PT ,Instructed the patient in proper bed mobility tr, posterior hip precaution ,issued RAN hand out ,patient demonstrated poor return understanding , p/s see PT note for patient's functional status , patient able to stand with ma x x2 with max x2 and max vc's for hand placement and sequencing able to take 5 side steps toward the head of bed , gait unsteady,unstable ,and limired due to generalized weakness ,returned back to bed with max x2 , vs stable tolerated treatment fairly , RN notified patient's participation i PT session . A: patient lives with in a 2nd floor apartment with elevator access, and has been functional and IND. ambulator without AD , family requested rehab placement once clear for discharge by MD ( pt recommend ARU vs SNF/Rehab placement ),patient owns fww and shower chair . P: PT BID X6 ,DAILY X1 ( BED MOBILITY TR, THERA EXE'S PER RAN PROTOCOL AND OBSERVATION OF RAN /POSTERIOR APPROACH ,TTRANSFER TR, PRE-GAIT TR / GAIT TR W/FWW WBAT ON LLE ,PATIENT EDUCATION AND TRAINING .
--- NOTE | 2018-07-29 11:40 | CONS ---
Assessment/Plan Assessment/Plan Hospital Course (Demo Recall) Hip fracture status post ORIF PVCs Preserved ejection fraction Hypotensionresolved Parkinson's -Blood pressure trend overall remained stable remains off IV pressor. -Continue beta-yahir as heart rate and blood pressure permits Consultation Date/Type/Reason Admit Date/Time Jul 26, 2018 at 19:26 Initial Consult Date 07/28/18 Type of Consult Cardiology Date/Time of Note DATE: 07/29/18 TIME: 11:39 24 HR Interval Summary Free Text/Dictation Patient seen and examined. Undergoing physical therapy Exam/Review of Systems Vital Signs Vitals Vital Signs Date Temp Pulse Resp B/P (MAP) Pulse Ox O2 O2 Flow FiO2 Time Delivery Rate 07/29/18 63 23 112/53 99 Room Air 10:00 (72) 07/29/18 99.3 08:00 07/29/18 3.0 04:45 07/28/18 30 10:15 Intake and Output 07/28/18 07/28/18 07/29/18 1515:00 23:00 07:00 IntakeIntake Total 1589.8 ml 975 ml 800 ml OutputOutput Total 660 ml 1875 ml 1495 ml BalanceBalance 929.8 ml -900 ml -695 ml Exam Exam Confused, no apparent distress Constitutional: alert Head: normocephalic Respiratory: other (Coarse breath sounds bilaterally, no wheezing) Cardiovascular: regular rate and rhythm, other (S1-S2 heard) Gastrointestinal: soft, non-tender, bowel sounds Extremities: edema (Trace) Labs Result Diagram: 07/29/18 0435 07/29/18 0435 Results 24hrs Laboratory Tests Test 07/28/18 12:20 07/29/18 04:35 Blood Gas Specimen Source Blood arterial Arterial Blood Date Drawn 07/28/2018 12:57:35 PM Arterial Blood pH (Temp corrected) 7.413 Arterial Blood pCO2 (Temp correct) 34.4 L Arterial Blood pO2 (Temp corrected) 130.5 H Arterial Blood HCO3 21.5 L Arterial Blood Base Excess -2.6 Arterial Blood Oxygen Saturation 98.3 Natanael Test ACCEPTAB Arterial Blood Gas Puncture Site Right Radial Arterial Blood Carboxyhemoglobin 0.3 Arterial Blood Methemoglobin 0.3 Blood Gas A-a O2 Differential 43.0 H Oxyhemoglobin Percent 97.7 Blood Gas Temperature 37.0 Blood Gas Actual Respiration Rate 15 Blood Gas Modality VENT - CPAP FiO2 30.0 Blood Gas Low PEEP Setting 5.0 Blood Gas Pressure Support 10 Blood Gas Notified Whom TM Blood Gas Notified Time 07/28/2018 1:09:13 PM White Blood Count 3.4 #L Red Blood Count 2.66 L Hemoglobin 8.2 L Hematocrit 24.7 L Mean Corpuscular Volume 92.9 Mean Corpuscular Hemoglobin 30.8 Mean Corpuscular Hemoglobin Concent 33.2 Red Cell Distribution Width 14.2 Platelet Count 104 L Mean Platelet Volume 10.3 Immature Granulocytes % 0.300 Neutrophils % 75.4 Lymphocytes % 14.8 L Monocytes % 7.7 Eosinophils % 1.5 Basophils % 0.3 Nucleated Red Blood Cells % 0.0 Immature Granulocytes # 0.010 Neutrophils # 2.6 Lymphocytes # 0.5 L Monocytes # 0.3 Eosinophils # 0.1 Basophils # 0.0 Nucleated Red Blood Cells # 0.0 Prothrombin Time 16.6 H Prothrombin Time Ratio 1.3 INR International Normalized Ratio 1.33 Sodium Level 143 Potassium Level 3.7 Chloride Level 111 H Carbon Dioxide Level 26 Anion Gap 6 Blood Urea Nitrogen 11 Creatinine 0.66 Est Glomerular Filtrat Rate mL/min Glucose Level 94 # Calcium Level 8.3 L Medications Medications Current Medications IV Flush (NS 3 ml) 3 ml PER PROTOCOL IV ; Start 07/26/18 at 19:00 Acetaminophen (Tylenol Tab) 650 mg Q6H PRN PO .PAIN 1-3 OR TEMP; Start 07/26/18 at 19:00 Docusate Sodium (Colace) 100 mg Q12H PRN PO .CONSTIPATION; Start 07/26/18 at 19:00 Zolpidem Tartrate (Ambien) 5 mg QHS PRN PO .INSOMNIA Last administered on 07/28/18at 20:42; Admin Dose 5 MG; Start 07/26/18 at 19:00 Famotidine (Pepcid) 20 mg Q24H PO Last administered on 07/28/18at 20:42; Admin Dose 20 MG; Start 07/26/18 at 21:00 Amantadine HCl (Symmetrel) 100 mg BID PO Last administered on 07/29/18at 08:46; Admin Dose 100 MG; Start 07/26/18 at 21:00 Entacapone (Comtan) 200 mg QID PO Last administered on 07/29/18 08:46; Admin Dose 200 MG; Start 07/26/18 at 21:00 Pramipexole (Mirapex) 0.5 mg DAILY PO Last administered on 07/29/18 08:46; Admin Dose 0.5 MG; Start 07/27/18 at 09:00 Tamsulosin HCl (Flomax) 0.4 mg HS PO Last administered on 07/28/18 20:43; Admin Dose 0.4 MG; Start 07/26/18 at 21:00 Carbidopa/Levodopa (Sinemet Cr (25/ 100)) 2 tab QID PO Last administered on 07/29/18 10:16; Admin Dose 2 TAB; Start 07/26/18 at 21:41 Oxycodone HCl (Roxicodone) 15 mg Q4H PRN PO .PAIN; Start 07/27/18 at 21:00 Oxycodone HCl (Roxicodone) 10 mg Q4H PRN PO .PAIN; Start 07/27/18 at 21:00 Oxycodone HCl (Roxicodone) 5 mg Q4H PRN PO .PAIN; Start 07/27/18 at 21:00 Hydromorphone HCl (Dilaudid) 1 mg Q3H PRN IV .BREAKTHROUGH PAIN; Start 07/27/18 at 21:00 Acetaminophen (Tylenol Tab) 1,000 mg Q8 PO Last administered on 07/29/18 05:27; Admin Dose 1,000 MG; Start 07/28/18 at 22:00 Ondansetron HCl (Zofran Inj) 4 mg Q4H PRN IV NAUSEA/VOMITING; Start 07/28/18 at 21:00 Gabapentin (Neurontin) 300 mg QHS PO Last administered on 07/28/18 20:43; Admin Dose 300 MG; Start 07/27/18 at 21:00 Pantoprazole (Protonix Tab) 40 mg DAILY@06 PO Last administered on 07/29/18 05:27; Admin Dose 40 MG; Start 07/28/18 at 06:00 Docusate Sodium (Colace) 200 mg BID PO Last administered on 07/29/18 08:46; Admin Dose 200 MG; Start 07/28/18 at 09:00; Stop 07/30/18 at 21:01 Simethicone (Mylicon) 80 mg TID PRN PO .GAS; Start 07/27/18 at 21:00 Senna/Docusate Sodium (Senokot-S) 2 tab BID PRN PO .CONSTIPATION; Start 07/27 at 21:00 Magnesium Hydroxide (Milk Of Mag) 30 ml HS PRN PO .CONSTIPATION; Start 07/27/18 at 21:00 Bisacodyl (Dulcolax Supp) 10 mg DAILY PRN [place] .CONSTIPATION; Start 07/27/18 at 21:00 Sodium Biphosphate/ Sodium Phosphate (Fleet Enema) 133 ml DAILY PRN [place] .CONSTIPATION; Start 07/27/18 at 21:00 Diphenhydramine HCl (Benadryl) 25 mg Q4H PRN IV .ITCHING; Start 07/27/18 at 21:00 Naloxone HCl (Narcan) 0.2 mg Q2M PRN IV .RESP RATE; Start 07/27/18 at 21:00 IV Flush (NS 3 ml) 3 ml per protocol IV ; Start 07/27/18 at 21:00 Aspirin (Aspirin) 81 mg DAILY PO Last administered on 07/29/18at 08:46; Admin Dose 81 MG; Start 07/28/18 at 09:00 Atorvastatin Calcium (Lipitor) 40 mg HS PO Last administered on 07/28/18at 20:42; Admin Dose 40 MG; Start 07/27/18 at 21:30 Morphine Sulfate (morphine) 2 mg Q4H PRN IV .SEVERE PAIN 7-10; Start 07/27/18 at 22:00 Phenylephrine HCl 40 mg/Dextrose 250 ml @ 37.5 mls/hr TITRATE IV Last administered on 07/28/18at 03:12; Admin Dose 11.25 MLS/HR; Start 07/28/18 at 02 :30 Metoprolol Tartrate (Lopressor) 25 mg BID PO Last administered on 07/29/18at 08:47; Admin Dose 25 MG; Start 07/29/18 at 09:00 Insulin Aspart (Novolog Insulin Pen) NOVOLOG *MILD* ALGORI... Q4 SC ; Start 07/29/18 at 13:00 Miscellaneous Information 1 ea NOTE XX ; Start 07/29/18 at 11:30 Glucose (Glutose) 15 gm Q15M PRN PO DECREASED GLUCOSE; Start 07/29/18 at 11:30 Glucose (Glutose) 22.5 gm Q15M PRN PO DECREASED GLUCOSE; Start 07/29/18 at 11:30 Dextrose (D50w Syringe) 25 ml Q15M PRN IV DECREASED GLUCOSE; Start 07/29/18 at 11:30 Dextrose (D50w Syringe) 50 ml Q15M PRN IV DECREASED GLUCOSE; Start 07/29/18 at 11:30 Glucagon (Glucagen) 1 mg Q15M PRN IM DECREASED GLUCOSE; Start 07/29/18 at 11:30 Glucose (Glutose) 15 gm Q15M PRN BUCCAL DECREASED GLUCOSE; Start 07/29/18 at 11:30 Jae Layne DO Jul 29, 2018 11:40
[2018-07-29] MEDS: INSULIN ASPART [NOVOLOG] 3 ML PEN SC SCH ×3 (13:00→20:50)
--- NOTE | 2018-07-29 16:45 | PAC ---
Date/Time of Note Date/Time of Note DATE: 07/29/18 TIME: 16:45 Post-Anesthesia Notes Post-Anesthesia Note Last documented vital signs Vital Signs Date Temp Pulse Resp B/P (MAP) Pulse Ox O2 O2 Flow FiO2 Time Delivery Rate 07/29/18 98.5 14:15 07/29/18 61 20 101/45 95 Room Air 14:00 (63) 07/29/18 3.0 04:45 07/28/18 30 10:15 Activity: WNL Respiratory function: WNL Cardiovascular function: WNL Mental status: Baseline Pain reasonably controlled: Yes Hydration appropriate: Yes Nausea/Vomiting absent: Yes BLESSING EMMANUEL MD Jul 29, 2018 16:45
--- NOTE | 2018-07-29 18:20 | NUR ---
END OF SHIFT SUMMARY Patient awake, confused, but will follow commands at times. Patient afebrile. Rhythm as charted. Room air; no respiratory distress noted. NPO; did not pass swallow evaluation by speech therapy. Urine output as charted. No bowel movement this shift. Skin care provided. Patient turned/repositioned Q2H per protocol. Comfort and safety measures/ fall precautions in place. Plan for - transfer to 4W (order inputted; awaiting bed) - re-evaluation by speech therapy - diet/ tube feeding recommendation by health care marketing specialist - continued PT/OT. Family throughout shift. Patient and family updated on patient's status, and plan of care. All of patient's needs met, and no acute distress/events. Will continue to monitor, and endorse care to warehouse supervisor 3rd shift RN. Addendum: 07/29/18 at 1856 by CORY HIGGINBOTHAM RN Restraints assessed per protocol. Attempted to reduce/eliminate restraints; however, patient attempted to pull tubes and IV lines.
--- NOTE | 2018-07-29 20:40 | NUR ---
ng placement per 07/27 xray results ng was to be advanced 10cm. per rn notes ng was advanced. air bolus heard upon auscultation. stat xray done to confirm ng is now in the right place after advancement.
[2018-07-29] MEDS: ATORVASTATIN 40 MG TAB PO SCH (20:43)
[2018-07-29] MEDS: ZOLPIDEM 5 MG TAB PO PRN (20:43)
[2018-07-29] MEDS: FAMOTIDINE 20 MG TAB PO SCH (20:43)
[2018-07-29] MEDS: TAMSULOSIN (SR) 0.4 MG CAP PO SCH (20:44)
[2018-07-29] MEDS: GABAPENTIN 300 MG CAP PO SCH (20:44)
[2018-07-29] MEDS ORDERED: morphine LIQ (10 MG/5 ML) CUP PO PRN (22:00)
[2018-07-30] VITALS (14 sets, daily range): BP systolic 83–139; BP diastolic 46–80; PULSE 62–90; RESP 18–23
[2018-07-30] MEDS: INSULIN ASPART [NOVOLOG] 3 ML PEN SC SCH ×6 (00:45→23:32)
--- NOTE | 2018-07-30 02:33 | NUR ---
pt left ICU at 0230 via gurney. report given to zuleika. insulin pen and IS went with patient.
--- NOTE | 2018-07-30 02:50 | NUR ---
RN NOTES: RECEIVED PATIENT TRANSFER FROM ICU VIA BED. PALAUAN SPEAKING, HX OF DEMENTIA AND PARKINSON'S. PATIENT VITALS STABLE. S/P LEFT HIP HEMIARTHROPLASTY DONE ON 07/[address] SOTELO. LEFT HIP DSG NOTED AQUACEL INTACT. HVAC IN PLACE. NGT IN PLACE ON LEFT NARES, DUE TO FAILURE FROM SWALLOW EVAL. PER REPORT FROM SET PAINTER- YENNY D/C PRIOR TO TRANSFER. BILATERAL WRIST RESTRAINT IN PLACE DUE TO PATIENT'S CONFUSION AND ATTEMPTS TO PULL OUT NGT. BOTH HANDS WITH GOOD CIRCULATION NOTED. ABDUCTION PILLOW IN PLACE. APUMPS IN USE. FALL PRECAUTION INITIATED. CALL LIGHT WITHIN REACH. CLOSE MONITORING IN PROGRESS.
[2018-07-30] MEDS: PANTOPRAZOLE (EC) 40 MG TAB PO SCH (05:08)
[2018-07-30] MEDS: ACETAMINOPHEN 500 MG TAB PO SCH ×3 (05:09→21:47)
--- NOTE | 2018-07-30 06:04 | NUR ---
EOSS: PATIENT BEEN ASSESSED FOR PAIN. PATIENT BEEN NOTED COMFORTABLE. LEFT HIP DSG REMAIN CDI. HVAC DRAIN = 30 ML. STILL NOTED WITH CONFUSION, ATTEMPTS TO PULL OUT NGT NOTED. SOFT RESTRAINT ON BOTH HANDS NOTED. RESTRAINT PROTOCOL OBSERVED. HYDRATION BEEN OFFERED VIA NGT. BLOOD SUGAR BEEN MONITORED ORDERED . PATIENT BEEN REPOSITIONED WITH TWO STAFF ASSIST. PATIENT IS DUE TO VOID. BED ALARM ACTIVATED. FALL PRECAUTION OBSERVED.
--- NOTE | 2018-07-30 08:19 | PN ---
Date/Time of Note Date/Time of Note DATE: 07/30/18 TIME: 08:18 Assessment/Plan Lines/Catheters IV Catheter Type (from Nrs): Peripheral IV [place] in Place (from Nrs): Yes Assessment/Plan Chief Complaint/Hosp Course 88-year-old male postop day #3 status post left hemiarthroplasty for femoral neck fracture. Patient was transferred to floor from ICU. Patient did fail swallow test yesterday. NG tube remains in place. Management per primary team. Plan: Continue medical management per medical team physical therapy. Posterior hip precautions. WBAT DVT prophylaxis: SCDs. Patient currently on aspirin for cardiac reasons. Start Lovenox 40 mg daily times 6 weeks for DVT prophylaxis. Hemovac: Discontinued [place]: DC DC planning: Patient will need long-term facility versus acute rehab. Subjective 24 Hr Interval Summary Patient doing well. Patient is on floor. No acute events overnight Pain is well controlled Exam/Review of Systems Vital Signs Vitals Vital Signs Date Temp Pulse Resp B/P (MAP) Pulse Ox O2 O2 Flow FiO2 Time Delivery Rate 07/30/18 98.6 69 18 139/64 95 07:51 (89) 07/30/18 Room Air 03:03 07/29/18 3.0 04:45 07/28/18 30 10:15 Intake and Output 07/29/18 07/29/18 07/30/18 1515:00 23:00 07:00 IntakeIntake Total 300 ml 150 ml 200 ml OutputOutput Total 645 ml 565 ml 330 ml BalanceBalance -345 ml -415 ml -130 ml Exam Free Text/Dictation Left lower extremity: Dressing: clean, dry, and intact, no erythema Sensation intact to light touch in a sural, saphenous, deep peroneal, superficial peroneal, medial and lateral plantar nerve distribution. Motor is intact, patient able to dorsiflex and plantarflex ankle and extend and flex great toe. Dorsalis Pedis pulse +2, Brisk capillary refill. Compartments are soft. Calves non-tender to palpation bilaterally. Results Result Diagram: 07/30/1841907/30/18419 ALBERT SOTELO MD Jul 30, 2018 08:19
[2018-07-30] MEDS: DOCUSATE SODIUM 10 MG/ML (10ML CUP) NGT SCH ×2 (09:00→21:00)
--- NOTE | 2018-07-30 09:15 | NUR ---
OT NOTE S: RN cleared pt for OT tx. O: Pt received supine in bed with eyes closed requiring vc to wake for therapy. Pt agreeable to tx with stable vitals. Pt required Max A x2 to sit at EOB. Seated at EOB pt demonstrated F/F- balance occasionally opening eyes with verbal and tactile cueing. Pt required Max A to wash face and hayley/doff gown with verbal and tactile cueing. Pt performed STS with MOd A and functional mob with CGA/Min A. Pt required assistance to direct walker due to eyes being closed. Pt returned to bed with Max Ax2. Pt left supine in bed with all needs met. RN notified. A: PT ochoa tx well - however requires Max verbal and tactile cueing to stay awake and engage in tx. P: COnt POC.
--- NOTE | 2018-07-30 09:20 | NUR ---
Dr. Mckenzie came to assess patient. was informed that pt was still NPO status and asked whether he would like to initiate NGT feedings. New order for swallow eval received. Clarification requested if pt was going to remain NPO status until swallow eval completed. Clarification received: pt to remain NPO and not inititiate a diet until after the swallow eval. Free water boluses administered to pt in interim to ensure pt did not become dehydrated.
--- NOTE | 2018-07-30 09:45 | NUR ---
PT NOTE [facility] Patient: Saqib Nazario : 1930 Age/Sex: 88/M Unit#: [id number] Room/Bed: 426/A User: Dasia Hines PTA Date: 07/30/18 09:20 Type: PT Technical Record Therapy day number 2 Subjective Potential for pain Pain Scale FACES Pain Intensity 0 (0-10) Patient Stated Goal for Pain Relief 0 (0-10) Pain Level Comment denied pain; no grimacing/groaning noted with activities; premedicated Pre Treatment Vital Signs Stable Yes - 138/64 mmHg, 75 bpm, 96% O2 sat on RA Transfer Training Start Time 09:20 Supine to Sit Dependent Transfer Sit to Stand Ability Moderate Assist Bed Mobility Sit to Supine Maximum Assist Additional Mobility Comments 2PA for safety and mobility. STS x2 with FWW; post lean Transfer Training End Time 09:35 Total Transfer Training Time 15 min (8-127) Patient uses wheelchair Not Applicable Gait Training Start Time 09:36 Gait Assist Levels Moderate Assist Assistive Devices Front Wheel Walker Ambulation Distance 6 feet Additional Gait Comments shuffling gait pattern, mod A with AD management, eyes closed often Gait Training End Time 09:45 Total Gait Training Treatment Time 9 min (8-127) Weight Bearing Assessment Label Left Lower Extremity Weight Bearing Status Weight Bearing as Cristina Static Sitting Balance Fair Dynamic Sitting Balance Fair minus Standing Static Balance Fair minus Dynamic Standing Balance Fair minus Additional Balance Assessments Comments with FWW Safety Judgement Poor Activity Tolerance Fair Equipment Present A pump Abductor Pillow Additional Equipment Present NGT, soft restraints, diaper Post Treatment Pain Intensity 0 0-10 Variance Documentation see PT note Total Treament Time 24 min (8-127) Total Minutes 24 Total Units 2 PT Technical Record Comment PT NOTE S: Pt denied any pain and no noted pain with activities. Beninese speaking only. Cleared and premedicated by ANA Cannon. O: Received asleep in semi-centeno, awakened with VC/TCs. Pre tx vitals: 138/64 mmHg, 75 bpm, 96% O2 sat on RA. See tech record for assist levels. Slow post lean in static sitting but otherwise CGA/SBA. Gait training with FWW, shuffling gait pattern, poor posture, eyes closed off and on with VCs to open eyes. Max VCs on eyes open, upright posture, directional cues. Returned to EOB. Positioned in supine, dep with repositioning. Positioned in semi-centeno, call light and all necessities within reach, soft restraints on. Informed RN and AUTOMOBILE BODY WORKER. A: Pt cristina tx fairly. Increased gait distance and STS assist level. Requires diaper. Max VCs on directional cues and one step commands. Beninese speaking only. 2PA required for safety and mobility. P: Continue with POC.
[2018-07-30] MEDS: CARBIDOPA/LEVODOPA 25-100 (CR) TAB PO SCH (10:13)
[2018-07-30] MEDS: ENTACAPONE 200 MG TAB PO SCH ×4 (10:17→21:47)
[2018-07-30] MEDS: ASPIRIN 81 MG TAB PO SCH (10:17)
[2018-07-30] MEDS: METOPROLOL 25 MG TAB PO SCH ×2 (10:18→21:48)
[2018-07-30] MEDS: ENOXAPARIN 40 MG/0.4 ML SYG SC SCH (10:23)
--- NOTE | 2018-07-30 10:30 | NUR ---
Swallow eval requested from speech therapist. Pending speech therapy availability.
--- NOTE | 2018-07-30 10:56 | PN ---
DATE: 07/30/2018 SUBJECTIVE: The patient remains lethargic and disoriented. Throughout he does not follow any comman ds. OBJECTIVE: Vital signs stable. He is afebrile. NG tube is in place. CHEST: Lungs are clear to auscultation. LUNGS: Decreased breath sound at bases. HEART: Regular rate and rhythm. ABDOMEN: Soft, nontender, nondistended, normoactive bowel sounds. EXTREMITIES: No clubbing, cyanosis, or edema. Left hip with clean dressing. NEUROLOGIC: Moves all extremities. ASSESSMENT: 1. An 88-year-old male on postop day 3, left hip hemiarthroplasty. 2. Acute on chronic left femoral neck fracture. 3. Severe Parkinson's dementia. 4. Hypertension. 5. Altered mental status. 6. Benign prostatic hyperplasia. 7. Dysphagia. PLAN: 1. Repeat bedside swallow evaluation. 2. Start pureed diet if patient is able to swallow. Await discharge planning to [facility] once there is no need for soft restraints. 3. Plan of care was discussed with his daughter telephonically. She requested a FULL CODE status. Dictated By: KEELY HIGGINBOTHAM MD SK/NTS Conf#: [id number] DID#: [id number] CC: KEELY HIGGINBOTHAM MD;*EndCC*
[2018-07-30] MEDS: AMANTADINE 100 MG/10 ML POSYR PO SCH ×2 (12:59→21:54)
[2018-07-30] MEDS: NEOMYC/POLYMYX/BACIT 30 GM OINT TOP SCH (12:59)
--- NOTE | 2018-07-30 13:00 | NUR ---
Dysphagia/Swallow Therapy Note: Brief Hx: 88-year-old male postop day #3 status post left hemiarthroplasty for femoral neck fracture. Patient was transferred to floor from ICU. Vitals: temp: 99.4; RR: 20-23; SPO2: 95% on RA; BP: 122/80 Labs: WBC: 3.7L; hgb/hct: 9.5/29.3L ABG poc2: 130.5H Current Nutrition: NPO +NG in place but not being used yet. S: Pt was received in bilateral wrist restraints, oriented to self only with tangential speech in Kyrgyz, which was not clear. Pt was in [place] level 5, with inconsistently following simple commands but confused and low level of arousal. Pt required max prompting approx every few minutes to keep his eyes open and participate in therapy and attend to the task of swallowing. O: Rx plan was reviewed and tx consisted of the followin. improve swallow safety. 2. optimize oral care and hygiene management, +xerostomia noted but clean/clear. 3. assess p.o trials: wet mouth swabs applied to the pts tongue/lips and palate: discoordinated lingual movement and tongue pumping noted during the attempted A-P transit of the liquid from the swab.Delayed pharyngeal swallow at approx 4 seconds in length with laryngeal manipulation to the pts extrinsic laryngeal region. 1/2 teaspoon of [place] thick liquids x 5 trials: reduced oral control and lingual pumping during transit with suspected premature loss into the hypopharynx before initiation of the swallow with max prompting. no overt s/s of aspiration but reduced attention to the liquid with starting to close his eyes during the swallow. 1/2 teaspoon of puree x4 with reduced bolus manipulation/mastication, reduced oral control and suspected premature loss into the hypopharynx before initiation of swallow. The pharyngeal swallow was stopped after the lingual pumping and the suspected bolus in the hypopharynx was not triggered until therapist provided max prompting and laryngeal manipulation to the extrinsic laryngeal region. No overt s/s of aspiration but at high risk due to RAQUEL. 4. consulted with ANA Cannon and requested that the pt start NG tube feeds and IV fluids so he can start getting primary means of nutrition/hydration and medication delivery A: oropharyngeal dysphagia associated with reduced mentation status/level of arousal, reduced A-P transit and bolus control before and during the swallow impacting overall swallow safety. Pt is not ready to initiate a p.o diet and is at risk of aspiration due to his low level of arousal required to attending to the task of swallowing the bolus. Based on his overall status, pts overall swallowing status and ability to safetly consume p.o could improve with improvement in his mentation status/level of arousal. P: 1. Continue Poc. 2. Keep NPO +anticipate need to initiate NG tube feeds for primary means of nutrition/hydration/medication delivery. 3. ongoing swallow assessment pending pts overall mentation status/level of arousal.
[2018-07-30] MEDS: CARBIDOPA/LEVODOPA (25/100) TAB PO SCH ×3 (14:43→21:49)
[2018-07-30] MEDS: PRAMIPEXOLE 0.25 MG TAB PO SCH (14:45)
--- NOTE | 2018-07-30 15:09 | CONS ---
Assessment/Plan Assessment/Plan Hospital Course (Demo Recall) Hip fracture status post ORIF History of PVCs Preserved ejection fraction Hypotensionresolved Parkinson's -Blood pressure trend overall remained stable. -Continue beta-yahir as heart rate and blood pressure permits. -We will order potassium supplementation Consultation Date/Type/Reason Admit Date/Time Jul 26, 2018 at 19:26 Initial Consult Date 07/28/18 Type of Consult Cardiology Date/Time of Note DATE: 07/30/18 TIME: 15:07 24 HR Interval Summary Free Text/Dictation Patient seen and examined. Undergoing physical therapy Exam/Review of Systems Vital Signs Vitals Vital Signs Date Temp Pulse Resp B/P (MAP) Pulse Ox O2 O2 Flow FiO2 Time Delivery Rate 07/30/18 98.6 69 18 139/64 95 07:51 (89) 07/30/18 Room Air 03:03 07/29/18 3.0 04:45 07/28/18 30 10:15 Intake and Output 07/29/18 07/29/18 07/30/18 1515:00 23:00 07:00 IntakeIntake Total 300 ml 150 ml 200 ml OutputOutput Total 645 ml 565 ml 330 ml BalanceBalance -345 ml -415 ml -130 ml Exam Exam Undergoing physical therapy, family bedside, no apparent distress Constitutional: alert Head: normocephalic Respiratory: other (Coarse breath sounds bilaterally, no wheezing) Cardiovascular: regular rate and rhythm, other (S1-S2 heard) Gastrointestinal: soft, non-tender, bowel sounds Extremities: edema (Trace) Labs Result Diagram: 07/30/18 0420 07/30/18 0420 Results 24hrs Laboratory Tests Test 07/29/18 16:52 07/29/18 20:50 07/30/18 00:35 07/30/18 04:20 Bedside Glucose 87 83 87 White Blood Count 3.7 L Red Blood Count 3.12 L Hemoglobin 9.5 L Hematocrit 29.3 L Mean Corpuscular 93.9 Volume Mean Corpuscular 30.4 Hemoglobin Mean Corpuscular 32.4 Hemoglobin Concent Red Cell 13.8 Distribution Width Platelet Count 142 # Mean Platelet Volume 10.5 H Immature 0.300 Granulocytes % Neutrophils % 71.6 Lymphocytes % 15.9 Monocytes % 7.6 Eosinophils % 4.1 Basophils % 0.5 Nucleated Red Blood 0.0 Cells % Immature 0.010 Granulocytes # Neutrophils # 2.7 Lymphocytes # 0.6 L Monocytes # 0.3 Eosinophils # 0.2 Basophils # 0.0 Nucleated Red Blood 0.0 Cells # Prothrombin Time 15.1 H Prothrombin Time 1.2 Ratio INR International 1.18 Normalized Ratio Sodium Level 144 Potassium Level 3.5 Chloride Level 107 Carbon Dioxide Level 28 Anion Gap 9 Blood Urea Nitrogen 15 Creatinine 0.72 Est Glomerular Filtrat Rate mL/min Glucose Level 75 Calcium Level 8.6 Test 07/30/18 05:16 07/30/18 08:49 07/30/18 12:28 Bedside Glucose 86 89 94 Medications Medications Current Medications Acetaminophen (Tylenol Tab) 650 mg Q6H PRN PO .PAIN 1-3 OR TEMP; Start 07/26/18 at 19:00 Docusate Sodium (Colace) 100 mg Q12H PRN PO .CONSTIPATION; Start 07/26/18 at 19:00 Zolpidem Tartrate (Ambien) 5 mg QHS PRN PO .INSOMNIA Last administered on 07/29/18at 20:43; Admin Dose 5 MG; Start 07/26/18 at 19:00 Famotidine (Pepcid) 20 mg Q24H PO Last administered on 07/29/18at 20:43; Admin Dose 20 MG; Start 07/26/18 at 21:00 Entacapone (Comtan) 200 mg QID PO Last administered on 07/30/18at 14:44; Admin Dose 200 MG; Start 07/26/18 at 21:00 Pramipexole (Mirapex) 0.5 mg DAILY PO Last administered on 07/30/18at 14:45; Admin Dose 0.5 MG; Start 07/27/18 at 09:00 Tamsulosin HCl (Flomax) 0.4 mg HS PO Last administered on 07/29/18at 20:44; Admin Dose 0.4 MG; Start 07/26/18 at 21:00 Oxycodone HCl (Roxicodone) 15 mg Q4H PRN PO .PAIN; Start 07/27/18 at 21:00 Oxycodone HCl (Roxicodone) 10 mg Q4H PRN PO .PAIN; Start 07/27/18 at 21:00 Oxycodone HCl (Roxicodone) 5 mg Q4H PRN PO .PAIN; Start 07/27/18 at 21:00 Acetaminophen (Tylenol Tab) 1,000 mg Q8 PO Last administered on 07/30/18at 14:48; Admin Dose 1,000 MG; Start 07/28/18 at 22:00 Ondansetron HCl (Zofran Inj) 4 mg Q4H PRN IV NAUSEA/VOMITING; Start 07/28/18 at 21:00 Gabapentin (Neurontin) 300 mg QHS PO Last administered on 07/29/18at 20:44; Admin Dose 300 MG; Start 07/27/18 at 21:00 Pantoprazole (Protonix Tab) 40 mg DAILY@06 PO Last administered on 07/30/18at 05:08; Admin Dose 40 MG; Start 07/28/18 at 06:00 Simethicone (Mylicon) 80 mg TID PRN PO .GAS; Start 07/27/18 at 21:00 Senna/Docusate Sodium (Senokot-S) 2 tab BID PRN PO .CONSTIPATION; Start 07/27/18 at 21:00 Magnesium Hydroxide (Milk Of Mag) 30 ml HS PRN PO .CONSTIPATION; Start 07/27/18 at 21:00 Bisacodyl (Dulcolax Supp) 10 mg DAILY PRN [place] .CONSTIPATION; Start 07/27/18 at 21:00 Sodium Biphosphate/ Sodium Phosphate (Fleet Enema) 133 ml DAILY PRN [place] .CONSTIPATION; Start 07/27/18 at 21:00 Diphenhydramine HCl (Benadryl) 25 mg Q4H PRN IV .ITCHING Last administered on 07/29/18at 22:06; Admin Dose 25 MG; Start 07/27/18 at 21:00 Naloxone HCl (Narcan) 0.2 mg Q2M PRN IV .RESP RATE; Start 07/27/18 at 21:00 IV Flush (NS 3 ml) 3 ml per protocol IV ; Start 07/27/18 at 21:00 Aspirin (Aspirin) 81 mg DAILY PO Last administered on 07/30/18at 10:17; Admin Dose 81 MG; Start 07/28/18 at 09:00 Atorvastatin Calcium (Lipitor) 40 mg HS PO Last administered on 07/29/18at 20:43; Admin Dose 40 MG; Start 07/27/18 at 21:30 Metoprolol Tartrate (Lopressor) 25 mg BID PO Last administered on 07/30/18at 10:18; Admin Dose 25 MG; Start 07/29/18 at 09:00 Insulin Aspart (Novolog Insulin Pen) NOVOLOG *MILD* ALGORI... Q4 SC ; Start 07/29/18 at 13:00 Miscellaneous Information 1 ea NOTE XX ; Start 07/29/18 at 11:30 Glucose (Glutose) 15 gm Q15M PRN PO DECREASED GLUCOSE; Start 07/29/18 at 11:30 Glucose (Glutose) 22.5 gm Q15M PRN PO DECREASED GLUCOSE; Start 07/29/18 at 11:30 Dextrose (D50w Syringe) 25 ml Q15M PRN IV DECREASED GLUCOSE; Start 07/29/18 at 11:30 Dextrose (D50w Syringe) 50 ml Q15M PRN IV DECREASED GLUCOSE; Start 07/29/18 at 11:30 Glucagon (Glucagen) 1 mg Q15M PRN IM DECREASED GLUCOSE; Start 07/29/18 at 11:30 Glucose (Glutose) 15 gm Q15M PRN BUCCAL DECREASED GLUCOSE; Start 07/29/18 at 11:30 Docusate Sodium (Colace Liquid Cup) 200 mg BID NGT ; Start 07/30/18 at 09:00 Enoxaparin Sodium (Lovenox) 40 mg DAILY SC Last administered on 07/30/18at 10:23; Admin Dose 40 MG; Start 07/30/18 at 09:00 Amantadine HCl (Symmetrel) 100 mg BID PO Last administered on 07/30/18at 12:59; Admin Dose 100 MG; Start 07/30/18 at 12:00 Carbidopa/Levodopa (Sinemet (25/ 100)) 2 tab QID PO Last administered on 07/30/18at 14:43; Admin Dose 2 TAB; Start 07/30/18 at 13:00 Neomycin/ Polymyxin/ Bacitracin (Neosporin Topical Oint) 1 applic DAILY TOP Last administered on 07/30/18at 12:59; Admin Dose 1 APPLIC; Start 07/30/18 at 12:30 Jae Layne DO Jul 30, 2018 15:09
--- NOTE | 2018-07-30 15:10 | NUR ---
PT NOTE [facility] Patient: Saqib Nazario : 1930 Age/Sex: 88/M Unit#: [id number] Room/Bed: 426/A User: Dasia Hines PTA Date: 07/30/18 14:30 Type: PT Technical Record Therapy day number 2 Pain Scale FACES Pain Intensity 0 (0-10) Patient Stated Goal for Pain Relief 0 (0-10) Pain Level Comment no noted pain; pt reported minimal pain post gait training; premedicated Transfer Training Start Time 14:30 Supine to Sit Dependent Transfer Sit to Stand Ability Moderate Assist Bed Mobility Sit to Supine Maximum Assist Additional Mobility Comments 2PA for safety and mobility; Transfer Training End Time 14:55 Total Transfer Training Time 25 min (8-127) Patient uses wheelchair Not Applicable Gait Training Start Time 14:56 Gait Assist Levels Moderate Assist Assistive Devices Front Wheel Walker Ambulation Distance 15 feet Additional Gait Comments shuffling gait, NBOS, poor posture, occasional stops; max A with AD Gait Training End Time 15:10 Total Gait Training Treatment Time 14 min (8-127) Weight Bearing Assessment Label Left Lower Extremity Weight Bearing Status Weight Bearing as Cristina Static Sitting Balance Fair plus Dynamic Sitting Balance Fair minus Standing Static Balance Fair minus Dynamic Standing Balance Fair minus Additional Balance Assessments Comments with FWW Safety Judgement Poor Activity Tolerance Fair Equipment Present A pump Abductor Pillow Additional Equipment Present NGT, soft restraints, diaper Post Treatment Pain Intensity 0 0-10 Variance Documentation see PT note Total Treament Time 39 min (8-127) Total Minutes 39 Total Units 3 PT Technical Record Comment PT NOTE S: "I feel a little better." Agreed to skilled PT. Cleared and premedicated by ANA Cannon. O: Received asleep in supine, abd pillow in place, soft restraints donned. Noted pt had BM; called TESTER ROCKET ENGINE. Assisted with R side roll with L LE support. Donned diaper. See tech record for assist levels. EOB sitting. STS with FWW. Gait training with FWW, shuffling gait, poor posture, very slow, NBOS regardless VCs, max A with AD for directional turns and avoiding obstacles. Noted pt had another BM in diaper; TESTER ROCKET ENGINE informed. Returned to EOB. Max A to supine; positioned in semi-centeno, abd pillow in place, call light and all necessities within reach, donned soft restraints. A: Pt cristina tx fairly. Slightly improved gait distance. Multiple loose BMs. Diaper required. 2PA for safety and mobility. P: Continue with POC.
[2018-07-30] MEDS ORDERED: POTASSIUM CHLORIDE 20 MEQ POWDER FOR ORAL SOLN JT ONE (15:30)
--- NOTE | 2018-07-30 16:09 | NUR ---
Nutrition Consult: Short term TF rec. requested as pt. failed swallow eval d/t lethargy. S/P fall and cemented left hip hemiarthroplasty. +DM, A1C 5.5%, per family pt. takes Metforman at home. POC BG (07/29/18) 83-93mg/dl. BM today. Recommend Diabetisource @55cc/hr. Water flush 130cc Q6hrs. Provides 1584kcal, 79g protein, 132g CHO and 1077cc free water.
--- NOTE | 2018-07-30 19:00 | NUR ---
EOSS: Dr. Mckenzie was informed that the new restraint order initiated at 1100 on 07/30/18 must be e-signed by [address] Davis stated pt is surgically clear to be discharged to SNF or ARU pending medical clearance. Pt failed swallow eval and was started on NGT feeds (diabetasource), dietary consult placed, see bankruptcy processor and speech therapist notes. Hemovac removed, no new blood on mepilex dressing, it is c/d/i. Neosporin ordered for L elbow abrasion. Pt remains on restraints due to confusion and attempts to pull NGT out. Pt assessed for safety q1-2 hours. Neuro checks and circulatory checks normal. Pt allowed Passive ROM and fluids administered via NGT prior to NGT feeding initiation. Fist-sized lumps noted on L forearm and medial back. Family reports these were not present at home. Dr. Lares made aware. BP hypotensive at 1600, lowest systolic in 80s, BP trended up to 100s systolic, Dr. Lares edited parameters for Lopressor administration. Some AM meds delayed due to needing to change extended release pills and capsules to a med that can be administered via NGT. Pt removed NGT at 1905 despite presence of restraints. Pt safety ensured and night nurse, Breanne informed. Bed alarm on, SCDs on.
--- NOTE | 2018-07-30 19:20 | NUR ---
RN NOTES: RECEIVED BEDSIDE REPORT FROM TANIKA PEREZ. STILL NOTED PATIENT'S CONFUSION . NOTED PATIENT HAD PULL OUT NGT. WILL TRY TO REINSERT NGT. CLOSE MONITORING IN PROGRESS.
--- NOTE | 2018-07-30 19:45 | NUR ---
RN NOTES: NGT REINSERTED, WITNESSED BY TREY PEREZ. WILL HAVE KUB TO CONFIRM PLACEMENT. PATIENT TOLERATED PROCEDURE.
--- NOTE | 2018-07-30 20:10 | NUR ---
RN NOTES: X-RAY AT BEDSIDE FOR KUB.
[2018-07-30] MEDS ORDERED: AMANTADINE 100 MG/10 ML POSYR PO SCH (21:00)
--- NOTE | 2018-07-30 21:45 | NUR ---
RN NOTES: X-RAY REPORT VERIFIED NGT PLACEMENT. WILL RESUME GT FEEDING AND DUE MEDICATIONS. SOFT RESTRAINT PROTOCOL OBSERVED.
[2018-07-30] MEDS: ATORVASTATIN 40 MG TAB PO SCH (21:47)
[2018-07-30] MEDS: TAMSULOSIN (SR) 0.4 MG CAP PO SCH (21:47)
[2018-07-30] MEDS: GABAPENTIN 300 MG CAP PO SCH (21:47)
[2018-07-30] MEDS: FAMOTIDINE 20 MG TAB PO SCH (21:49)
--- NOTE | 2018-07-30 23:00 | NUR ---
RN NOTES: NOTED PATIENT STILL WITH ATTEMPTS TO TAG OFF NGT. CLOSE MONITORING RENDERED.
[2018-07-31] VITALS (8 sets, daily range): BP systolic 117–148; BP diastolic 56–79; PULSE 70–86; RESP 17–20
--- NOTE | 2018-07-31 04:15 | NUR ---
RN NOTES: PRIMARY NURSE CAME BACK FROM BREAK TIME, RECEIVED REPORT FROM DIRECTOR OF MIDWIFERY/STAFF MIDWIFEANA BRISCOE THAT PATIENT HAD PULLED HIS NGT. GT FEEDING ON HOLD AT THIS TIME. PATIENT BEEN MONITORED AND BEEN REPOSITIONED Q 2 HRS. WILL TRY TO REINSERT NGT.
[2018-07-31] MEDS: INSULIN ASPART [NOVOLOG] 3 ML PEN SC SCH ×3 (06:00→17:51)
[2018-07-31] MEDS: ACETAMINOPHEN 500 MG TAB PO SCH ×2 (06:00→14:56)
[2018-07-31] MEDS: PANTOPRAZOLE (EC) 40 MG TAB PO SCH ×2 (06:00→11:30)
--- NOTE | 2018-07-31 06:25 | NUR ---
RN NOTES: NGT REINSERTED WITNESSED BY RACHNA MARKING STITCHER. PATIENT TOLERATED PROCEDURE. WILL HAVE KUB TO VERIFY NGT PLACEMENT PER PROTOCOL.
--- NOTE | 2018-07-31 07:23 | NUR ---
EOSS: PATIENT BEEN ON SOFT RESTRAINT, PROTOCOL OBSERVED. VITALS BEEN MONITORED. REMAINED NPO. NOTED SOME ORAL SECRETIONS, ORAL SUCTION DONE. NGT WAS PULLED AND REINSERTED 2X DURING THE SHIFT. X-RAY CAME AND KUB DONE, AWAITS RESULT. PATIENT BEEN REPOSITIONED Q 2HRS. SKIN MONITORING RENDERED. PATIENT HAD NO FEEDING RESIDUAL NOTED. CLOSE MONITORING RENDERED. HOURLY ROUNDING RENDERED. BED ALARM ACTIVATED. FALL PRECAUTION OBSERVED.
--- NOTE | 2018-07-31 08:00 | NUR ---
PATIENT AWAKE,ALERT CONFUSE ,ORIENTED X1.CALM.NOTED XRAY FOR NGTUBE PLACEMENT,RESUMED FEEDING AT 30 ML/HR.POSITIONED WITH HOB 30 DEGREE ,CHECKED AND RELEASED DEANDRE WRIST RESTRAIN ,ROM PROVIDED,SKIN CHECK DONE AND REAPPLIED AFTER.
[2018-07-31] MEDS ORDERED: POTASSIUM CHLORIDE (SR) 20 MEQ TAB PO STA ×2 (08:25→12:36)
[2018-07-31] MEDS: CARBIDOPA/LEVODOPA (25/100) TAB PO SCH ×3 (09:00→17:28)
--- NOTE | 2018-07-31 09:00 | NUR ---
PATIENT PULLED OUT HIS NGTUBE. DR HIGGINBOTHAM WAS INFORMED WITH ORDERS GIVEN TO HOLD NGTUBE FEEDING,DC RESTRAINS AND SCHEDULE FOR SPEECH SWALLOW EVAL .
[2018-07-31] MEDS ORDERED: METO-448 PO (09:21)
[2018-07-31] MEDS ORDERED: ENOX40DI2 SC (09:21)
[2018-07-31] MEDS ORDERED: FAMO20TA18 PO (09:21)
[2018-07-31] MEDS ORDERED: BISA10SU55 PR (09:21)
[2018-07-31] MEDS ORDERED: TYL500 PO (09:21)
--- NOTE | 2018-07-31 09:36 | NUR ---
PT NOTE Therapy day number 3 Subjective Denies pain Potential for pain Pain Scale NUMERIC Pain Intensity 0 (0-10) Patient Stated Goal for Pain Relief 0 (0-10) Pain Level Comment DENIES PAIN Transfer Training Start Time 09:36 Supine to Sit Maximum Assist Transfer Sit to Stand Ability Moderate Assist Bed Mobility Sit to Supine Dependent Toileting Ability Maximum Assist Additional Mobility Comments 2PA for safety and mobility; Transfer Training End Time 09:50 Total Transfer Training Time 14 min (8-127) Patient uses wheelchair Not Applicable Gait Training Start Time 09:50 Gait Assist Levels Moderate Assist Assistive Devices Front Wheel Walker Ambulation Distance 8 feet Additional Gait Comments shuffling gait, NBOS, poor posture, occasional stops; max A with AD Gait Training End Time 10:16 Total Gait Training Treatment Time 26 min (8-127) Weight Bearing Assessment Label Left Lower Extremity Weight Bearing Status Weight Bearing as Cristina Static Sitting Balance Fair plus Dynamic Sitting Balance Fair minus Standing Static Balance Fair minus Dynamic Standing Balance Fair minus Additional Balance Assessments Comments FWW Safety Judgement Poor Activity Tolerance Fair Equipment Present Abductor Pillow IV pump Post Treatment Pain Intensity 0 0-10 Variance Documentation SEE BELOW AND PT NOTE Total Treament Time 40 min (8-127) Total Minutes 40 Total Units 3 PT Technical Record Comment PT NOTE S: Pt stated, "I am okay." Pt speaks Wolof. Agreeable for PT and cleared per ANA Cobb. O: Received pt in semi-fowlers, alert w/abductor pillow in place. Bed mobility w/HOB elevated using BR w/Max VCs/TCs for hand placement and sequence 1PA MaxA. Applied gait belt at EOB. STS to FWW ModA x 2 w/Max VCs/TCs for proper hand/foot placement & sequence. Assisted pt to toilet MaxA x 2. Gait training performed in room w/FWW 8' x 2 bed<>restroom ModA x 2. Noted shuffling gait, NBOS, poor posture, occasional stops and required Max A with AD. Assisted pt BTB Dependent 2PA. Positioned pt for comfort, call light/phone within reach, bed alarmed, SCD's reapplied, abductor pillow reapplied, and all needs met. ANA Cobb informed of pt's status. A: Fair tolerance to tx. Pt showed no signs of distress or SOB during or after tx. Pt required Max VCs/TCs throughout tx due to extreme confusion and VCs for safety due to poor safety awareness. P: Continue POC and progress as tolerated.
--- NOTE | 2018-07-31 10:00 | NUR ---
OT NOTE: S: RN Cleared pt for skilled OT tx. O: Pt received supine in bed and agreeable to tx. Pt AOX1, inconsistently following 1 step commands with verbal and tactile cueing. Pt required Max A to perform supine->sit. Seated at EOB patient demonstrated F- balance. With verbal and tactile cueing useing FWW pt stood and performed functional mob with Mod A. Pt performed 3/1 commode transfer with verbal and tactile cueing and required total A for toilet hygiene. Pt returned to bed with Max A. Pt left supine in bed with all needs met. RN notified. A: Pt continues to required verbal and tactile cueing to engage in tx. P: Cont POC.
--- NOTE | 2018-07-31 10:12 | DS ---
Date/Time of Note Date/Time of Note DATE: 07/31/18 TIME: 10:08 Discharge Summary Admission/Discharge Info Admit Date/Time Jul 26, 2018 at 19:26 Discharge Date/Time Hospital Course Discharge diagnoses 88-year-old male with acute on chronic left femoral neck fracture Status post left hip hemiarthroplasty Advanced Parkinson's dementia Type 2 diabetes mellitus Hypertension BPH 88-year-old male with history of advanced Parkinson's dementia, suffered a fall at home with complaint of left hip pain. He was diagnosed with acute on chronic left femoral neck fracture. Patient was evaluated by Dr. Davis. He was taken to the operating room and underwent left hemiarthroplasty. Patient remained intubated until postop day #1 and successfully extubated. He was lethargic and confused for 2 days postop. Patient is now in a more stable condition for [facility]. He will need long-term physical therapy and rehabilitation. Patient will follow-up with PCP and orthopedic surgeon in 2 weeks. Home Meds Reported Medications Tamsulosin Hcl* (Tamsulosin Hcl*) 0.4 Mg Cap.er.24h, 0.4 MG PO HS, CAP 07/26/18 Aspirin (Low Dose Aspirin) 81 Mg Tablet.dr, 81 MG PO DAILY, #30 TAB 07/26/18 Pramipexole* (Mirapex*) 0.5 Mg Tablet, 0.5 MG PO FIVE TIMES DAILY, TAB 07/26/18 Lisinopril* (Lisinopril*) 5 Mg Tablet, 5 MG PO DAILY, #30 TAB 07/26/18 Atenolol* (Atenolol*) 50 Mg Tablet, 50 MG PO DAILY, #30 TAB 07/26/18 Naloxegol Oxalate (Movantik) 25 Mg Tablet, 25 MG PO DAILY, TAB 07/26/18 Amantadine Hcl* (Amantadine Hcl*) 100 Mg Capsule, 100 MG PO BID, #60 CAP 07/26/18 Metformin Hcl* (Metformin Hcl*) 500 Mg Tablet, 500 MG PO WITH BREAKFAST DINNE, #60 TAB 07/26/18 Atorvastatin Calcium* (Atorvastatin Calcium*) 20 Mg Tablet, 20 MG PO QHS, #30 TAB 07/26/18 [place]-3 Acid Ethyl Esters (Lovaza) 1 Gm Capsule, 2 GM PO BID, CAP 07/26/18 Entacapone* (Entacapone*) 200 Mg Tablet, 200 MG PO QID, TAB 07/26/18 Carbidopa-Levodopa* (Sinemet CR*) 50-200 Mg Tabsr, 1 TAB PO QID, TAB 07/26/18 Primary Care Provider Not On Staff Doctor Pending Labs Laboratory Tests Test 07/30/18 12:28 07/30/18 18:07 07/30/18 23:29 07/31/18 04:27 Bedside 94 88 91 Glucose mg/dL (70-220) mg/dL (70-220) mg/dL (70-220) Prothrombin 15.0 Time Sec (11.9-14.9 ) Prothrombin 1.2 Time Ratio INR 1.17 International Normalized Rati o Sodium Level 144 mmol/L (135-14 4) Potassium 3.3 Level mmol/L (3.5-5. 1) Chloride Level 109 mmol/L (97-110 ) Carbon Dioxide 25 Level mmol/L (21-31) Anion Gap 10 (5-13) Blood Urea 18 Nitrogen mg/dl (7-20) Creatinine 0.69 mg/dl (0.61-1. 24) Est Glomerular mL/min (>60) Filtrat Rate mL/min Glucose Level 95 mg/dl (70-220) Calcium Level 8.2 mg/dl (8.4-10. 2) Test 07/31/18 04:28 07/31/18 05:43 White Blood 4.3 Count 10^3/ul (4.8-10 .8) Red Blood 3.13 Count 10^6/ul (4.70-6 .10) Hemoglobin 9.5 g/dl (14.0-18.0 ) Hematocrit 28.8 % (42.0-52.0) Mean 92.0 Corpuscular fl (82.0-101.0) Volume Mean 30.4 Corpuscular pg (29.0-33.0) Hemoglobin Mean 33.0 Corpuscular g/dl (32.0-37.0 Hemoglobin Conc ) ent Red Cell 13.4 Distribution % (11.5-14.5) Width Platelet Count 163 10^3/UL (140-41 5) Mean Platelet 10.1 Volume fl (7.4-10.4) Immature 0.500 Granulocytes % % (0.001-0.429) Neutrophils % 77.8 % (39.0-77.0) Lymphocytes % 11.1 % (15.0-51.0) Monocytes % 7.1 % (0.0-11.0) Eosinophils % 3.3 % (0.0-7.0) Basophils % 0.2 % (0.0-2.0) Nucleated Red 0.0 Blood Cells % /100WBC (0.0-0. 0) Immature 0.020 Granulocytes # 10^3/ul (0.0-0. 031) Neutrophils # 3.3 10^3/ul (1.6-7. 5) Lymphocytes # 0.5 10^3/ul (0.8-2. 9) Monocytes # 0.3 10^3/ul (0.3-0. 9) Eosinophils # 0.1 10^3/ul (0.0-0. 5) Basophils # 0.0 10^3/ul (0.0-0. 1) Nucleated Red 0.0 Blood Cells # 10^3/ul (0.0-0. 0) Bedside 103 Glucose mg/dL (70-220) KEELY HIGGINBOTHAM MD Jul 31, 2018 10:12
[2018-07-31] MEDS ORDERED: UDMOM PO (10:14)
--- NOTE | 2018-07-31 10:15 | PDOCDIS ---
Discharge Instructions CONDITION [id number] Patient Condition: [id number] Fair HOME CARE INSTRUCTIONS: [id number] Diet Instructions: [id number] Activity Restrictions: [id number] Slowly Increase Activity FOLLOW UP/APPOINTMENTS Follow-up Plan pcp [address] Davis 2 weeks KEELY HIGGINBOTHAM MD Jul 31, 2018 10:15
--- NOTE | 2018-07-31 10:49 | NUR ---
Dysphagia/Swallow Therapy Note: Brief Hx: 88-year-old male postop day #4 status post left hemiarthroplasty for femoral neck fracture. Patient was transferred to floor from ICU. Pt was very lethargic s/p 2 days Post op from surgery. Vitals: temp: 98.9; RR: 18-20; SPO2: 100% on RA; Labs: WBC: 4.3L; hgb/hct: 9.5/28.8L ABG poc2: 130.5H Current Nutrition: NPO; per RN, put pulled out his NG 3x within the past 24 hours. PLOF: ground textures/puree and thin liquids-per close family friends present at bedside S: Pt was received awake, alert to self only and immediately following occupational therapy. Pt was able to follow simple commands but not able to keep his eyes open throughout the session. Pt's close family friends arrived fci through the session and stated that he "is now back to his baseline. They stated that he only keeps his eyes open for approx a few minutes at a time before closing them and requiring prompting to maintain attention. O: Rx plan was reviewed and tx consisted of the followin. improve swallow safety. 2. optimize oral care and hygiene management, +xerostomia noted but clean/clear. 3. assess p.o trials: ice chips x2 slow but adequate manipulation and transit. no s/s of aspiration. thin liquids by teaspoon x 3: trigger was mildly delayed w/o any s/s of aspiration. thin liquids by cup x12 single sips and 3x of sequential sips (2 sips in a row), with prompting: moderately reduced oral control and delayed timing/A-P transit with sequential sips and with suspected penetration/cannot r/o aspiration and better oral control and mild delay with single sips by cup: no overt s/s of aspiration or penetration and vocal quality was clear. Puree by teaspoon x10 trials: lingual pumping and discoordination noted- more A-P transit and suspect premature loss into the hypopharynx before initiation of the swallow-no s/s of aspiration or penetration noted. 4. reviewed the swallowing precautions/education with family and RN. Everyone verbalized agreement and understanding. 5. swallowing precautions posted above the pts HOB. 6. p.o status/diet consistency/level of supervision: initiate puree diet and Alternate with thin liquids by cup with feeder assistance/supervision A: mild oropharyngeal dysphagia associated with reduced bolus manipulation and oral motor strength/coordination, reduced A-P transit and bolus control before and during the swallow. Compared to the previous session, the pt is now ready to initiate a p.o diet but with strict use of swallowing precautions inorder to prevent aspiration across meals. P: 1. Continue Poc. 2. Initiate puree diet and thin liquids by cup (single sips and encourage pt to hold cup himself), 3. Follow swallow precautions (HOB upright, single bites/sips at a slow rate and remain upright for one hour after meals). 4. anticipate D/C to SNF 5. Administer crushed medication with apple sauce and followed after each bite with thin liquids by cup to clear our suspected residue in the pharyngeal cavity.
--- NOTE | 2018-07-31 11:28 | NUR ---
Discharge coordination; Spoke with Tejinder from [facility], at this time attempting to find nursing home facility for Patient. Informed restraints were discontinued today at 0900, may need 24 hours observation without it but will continue searching for SNF placement. Addendum: 07/31/18 at 1633 by ZEE GOLDBERG RN [facility]; SNF arrangements made with [facility] with room 307A reserved for Patient. Tejinder also has spoken to family and [facility] , discussed with "Shelby", and pickle maker around [phone]. carpet inspector will give report to Rosanna at [facility] prior to discharge.
[2018-07-31] MEDS: DOCUSATE SODIUM 10 MG/ML (10ML CUP) NGT SCH (11:30)
[2018-07-31] MEDS: AMANTADINE 100 MG/10 ML POSYR PO SCH (11:31)
[2018-07-31] MEDS: ASPIRIN 81 MG TAB PO SCH (11:31)
[2018-07-31] MEDS: ENOXAPARIN 40 MG/0.4 ML SYG SC SCH (11:33)
[2018-07-31] MEDS: METOPROLOL 25 MG TAB PO SCH (11:34)
--- NOTE | 2018-07-31 12:36 | CONS ---
Assessment/Plan Assessment/Plan Hospital Course (Demo Recall) Hip fracture status post ORIF History of PVCs Preserved ejection fraction Hypotensionresolved Parkinson's -Blood pressure trend overall remained stable. -Continue beta-yahir as heart rate and blood pressure permits. -We will order potassium supplementation Consultation Date/Type/Reason Admit Date/Time Jul 26, 2018 at 19:26 Initial Consult Date 07/28/18 Type of Consult Cardiology Date/Time of Note DATE: 07/31/18 TIME: 12:34 24 HR Interval Summary Free Text/Dictation Patient seen and examined. No shortness of breath Exam/Review of Systems Vital Signs Vitals Vital Signs Date Temp Pulse Resp B/P (MAP) Pulse Ox O2 O2 Flow FiO2 Time Delivery Rate 07/31/18 99.1 86 18 148/67 93 08:14 (94) 07/31/18 Room Air 08:00 07/29/18 3.0 04:45 07/28/18 30 10:15 Intake and Output 07/30/18 07/30/18 07/31/18 1515:00 23:00 07:00 IntakeIntake Total 600 ml 707 ml 220 ml BalanceBalance 600 ml 707 ml 220 ml Exam Exam Family at bedside, no apparent distress, intermittently following commands Constitutional: alert Head: normocephalic Respiratory: other (Coarse breath sounds bilaterally, no wheezing) Cardiovascular: regular rate and rhythm, other (S1-S2 heard) Gastrointestinal: soft, non-tender, bowel sounds Extremities: edema (Trace) Labs Result Diagram: 07/31/18 0428 07/31/18 0427 Results 24hrs Laboratory Tests Test 07/30/18 18:07 07/30/18 23:29 07/31/18 04:27 07/31/18 04:28 Bedside Glucose 88 91 Prothrombin Time 15.0 H Prothrombin Time Ratio 1.2 INR International 1.17 Normalized Ratio Sodium Level 144 Potassium Level 3.3 L Chloride Level 109 Carbon Dioxide Level 25 Anion Gap 10 Blood Urea Nitrogen 18 Creatinine 0.69 Est Glomerular Filtrat Rate mL/min Glucose Level 95 Calcium Level 8.2 L White Blood Count 4.3 L Red Blood Count 3.13 L Hemoglobin 9.5 L Hematocrit 28.8 L Mean Corpuscular 92.0 Volume Mean Corpuscular 30.4 Hemoglobin Mean Corpuscular 33.0 Hemoglobin Concent Red Cell Distribution 13.4 Width Platelet Count 163 Mean Platelet Volume 10.1 Immature Granulocytes 0.500 H % Neutrophils % 77.8 H Lymphocytes % 11.1 L Monocytes % 7.1 Eosinophils % 3.3 Basophils % 0.2 Nucleated Red Blood 0.0 Cells % Immature Granulocytes 0.020 # Neutrophils # 3.3 Lymphocytes # 0.5 L Monocytes # 0.3 Eosinophils # 0.1 Basophils # 0.0 Nucleated Red Blood 0.0 Cells # Test 07/31/18 05:43 Bedside Glucose 103 Medications Medications Current Medications Acetaminophen (Tylenol Tab) 650 mg Q6H PRN PO .PAIN 1-3 OR TEMP; Start 07/26/18 at 19:00 Docusate Sodium (Colace) 100 mg Q12H PRN PO .CONSTIPATION; Start 07/26/18 at 19:00 Zolpidem Tartrate (Ambien) 5 mg QHS PRN PO .INSOMNIA Last administered on 07/29/18at 20:43; Admin Dose 5 MG; Start 07/26/18 at 19:00 Famotidine (Pepcid) 20 mg Q24H PO Last administered on 07/30/18at 21:49; Admin Dose 20 MG; Start 07/26/18 at 21:00 Entacapone (Comtan) 200 mg QID PO Last administered on 07/30/18at 21:47; Admin Dose 200 MG; Start 07/26/18 at 21:00 Pramipexole (Mirapex) 0.5 mg DAILY PO Last administered on 07/30/18at 14:45; Admin Dose 0.5 MG; Start 07/27/18 at 09:00 Tamsulosin HCl (Flomax) 0.4 mg HS PO Last administered on 07/30/18at 21:47; Ad min Dose 0.4 MG; Start 07/26/18 at 21:00 Oxycodone HCl (Roxicodone) 15 mg Q4H PRN PO .PAIN; Start 07/27/18 at 21:00 Oxycodone HCl (Roxicodone) 10 mg Q4H PRN PO .PAIN; Start 07/27/18 at 21:00 Oxycodone HCl (Roxicodone) 5 mg Q4H PRN PO .PAIN; Start 07/27/18 at 21:00 Acetaminophen (Tylenol Tab) 1,000 mg Q8 PO Last administered on 07/30/18 21:47; Admin Dose 1,000 MG; Start 07/28/18 at 22:00 Ondansetron HCl (Zofran Inj) 4 mg Q4H PRN IV NAUSEA/VOMITING; Start 07/28/18 at 21:00 Gabapentin (Neurontin) 300 mg QHS PO Last administered on 07/30/18 21:47; Admin Dose 300 MG; Start 07/27/18 at 21:00 Pantoprazole (Protonix Tab) 40 mg DAILY@06 PO Last administered on 07/31/18 11:30; Admin Dose 40 MG; Start 07/28/18 at 06:00 Simethicone (Mylicon) 80 mg TID PRN PO .GAS; Start 07/27/18 at 21:00 Senna/Docusate Sodium (Senokot-S) 2 tab BID PRN PO .CONSTIPATION; Start 07/27/18 at 21:00 Magnesium Hydroxide (Milk Of Mag) 30 ml HS PRN PO .CONSTIPATION; Start 07/27/18 at 21:00 Bisacodyl (Dulcolax Supp) 10 mg DAILY PRN AL .CONSTIPATION; Start 07/27/18 at 21:00 Sodium Biphosphate/ Sodium Phosphate (Fleet Enema) 133 ml DAILY PRN AL .CONSTIPATION; Start 07/27/18 at 21:00 Diphenhydramine HCl (Benadryl) 25 mg Q4H PRN IV .ITCHING Last administered on 07/29/18 22:06; Admin Dose 25 MG; Start 07/27/18 at 21:00 Naloxone HCl (Narcan) 0.2 mg Q2M PRN IV .RESP RATE; Start 07/27/18 at 21:00 IV Flush (NS 3 ml) 3 ml per protocol IV ; Start 07/27/18 at 21:00 Aspirin (Aspirin) 81 mg DAILY PO Last administered on 07/31/18 11:31; Admin Dose 81 MG; Start 07/28/18 at 09:00 Atorvastatin Calcium (Lipitor) 40 mg HS PO Last administered on 07/30/18 21:47; Admin Dose 40 MG; Start 07/27/18 at 21:30 Metoprolol Tartrate (Lopressor) 25 mg BID PO Last administered on 07/31/18 11:34; Admin Dose 25 MG; Start 07/29/18 at 09:00 Miscellaneous Information 1 ea NOTE XX ; Start 07/29/18 at 11:30 Glucose (Glutose) 15 gm Q15M PRN PO DECREASED GLUCOSE; Start 07/29/18 at 11:30 Glucose (Glutose) 22.5 gm Q15M PRN PO DECREASED GLUCOSE; Start 07/29/18 at 11:30 Dextrose (D50w Syringe) 25 ml Q15M PRN IV DECREASED GLUCOSE; Start 07/29/18 at 11:30 Dextrose (D50w Syringe) 50 ml Q15M PRN IV DECREASED GLUCOSE; Start 07/29/18 at 11:30 Glucagon (Glucagen) 1 mg Q15M PRN IM DECREASED GLUCOSE; Start 07/29/18 at 11:30 Glucose (Glutose) 15 gm Q15M PRN BUCCAL DECREASED GLUCOSE; Start 07/29/18 at 11:30 Docusate Sodium (Colace Liquid Cup) 200 mg BID NGT Last administered on 07/31/18at 11:30; Admin Dose 200 MG; Start 07/30/18 at 09:00 Enoxaparin Sodium (Lovenox) 40 mg DAILY SC Last administered on 07/31/18at 11:33; Admin Dose 40 MG; Start 07/30/18 at 09:00 Amantadine HCl (Symmetrel) 100 mg BID PO Last administered on 07/31/18at 11:31; Admin Dose 100 MG; Start 07/30/18 at 12:00 Carbidopa/Levodopa (Sinemet (25/ 100)) 2 tab QID PO Last administered on 07/31/18at 11:31; Admin Dose 2 TAB; Start 07/30/18 at 13:00 Neomycin/ Polymyxin/ Bacitracin (Neosporin Topical Oint) 1 applic DAILY TOP Last administered on 07/30/18at 12:59; Admin Dose 1 APPLIC; Start 07/30/18 at 12:30 Insulin Aspart (Novolog Insulin Pen) NOVOLOG *MILD* ALGORI... Q6 SC ; Start 07/31/18 at 00:00 Jae Layne DO Jul 31, 2018 12:36
[2018-07-31] MEDS: ENTACAPONE 200 MG TAB PO SCH ×3 (12:42→17:30)
[2018-07-31] MEDS: PRAMIPEXOLE 0.25 MG TAB PO SCH (12:42)
[2018-07-31] MEDS: NEOMYC/POLYMYX/BACIT 30 GM OINT TOP SCH (12:42)
--- NOTE | 2018-07-31 13:49 | NUR ---
1. ARU CONSULT INITIATED ARU referral received. Order verified in EMR. Case currently being reviewed with ARU Manager Of It. Spoke with patient's family (Daughter and Grandson Kervin) regarding ARU referral. Reviewed ARU program, expectations and objectives. Patient's family verbalized understanding and are agreeable to ARU if accepted. Will notify (RN or CM) regarding status of referral. Will continue to monitor rehab levels throughout the weekend. Thank you for this referral
--- NOTE | 2018-07-31 14:01 | NUR ---
PT NOTE Therapy day number 3 Subjective Denies pain Pain Scale NUMERIC Pain Intensity 0 (0-10) Patient Stated Goal for Pain Relief 0 (0-10) Pain Level Comment DENIES PAIN Transfer Training Start Time 14:01 Supine to Sit Dependent Transfer Sit to Stand Ability Moderate Assist Bed Mobility Sit to Supine Dependent Additional Mobility Comments 2PA for safety and mobility; Transfer Training End Time 14:15 Total Transfer Training Time 14 min (8-127) Patient uses wheelchair Not Applicable Gait Training Start Time 14:15 Gait Assist Levels Moderate Assist Assistive Devices Front Wheel Walker Ambulation Distance 15 feet Additional Gait Comments shuffling gait, NBOS, poor posture, occasional stops; max A with AD Gait Training End Time 14:40 Total Gait Training Treatment Time 25 min (8-127) Weight Bearing Assessment Label Left Lower Extremity Weight Bearing Status Weight Bearing as Cristina Static Sitting Balance Fair plus Dynamic Sitting Balance Fair minus Standing Static Balance Fair minus Dynamic Standing Balance Fair minus Additional Balance Assessments Comments fww Safety Judgement Poor Activity Tolerance Fair Equipment Present Abductor Pillow IV pump Post Treatment Pain Intensity 0 0-10 Variance Documentation SEE BELOW AND PT NOTE Total Treament Time 39 min (8-127) Total Minutes 39 Total Units 3 PT Technical Record Comment PT NOTE S: Pt stated, "Hi I am fine." Pt speaks [place]. Agreeable for PT and cleared per ANA Cobb. O: Received pt in semi-fowlers, alert w/abductor pillow in place w/family present in room. Bed mobility w/HOB elevated using BR w/Max VCs/TCs for hand placement and sequence Dependent 2PA. Applied gait belt at EOB. STS to FWW ModA x 2 w/Max VCs/TCs for proper hand/foot placement & sequence. Gait training performed in room w/FWW 15' around bed ModA x 2. Noted shuffling gait, NBOS, poor posture, occasional stops. Required Max A with AD. Assisted pt BTB Dependent 2PA. Positioned pt for comfort, call light/phone within reach, bed alarmed, SCD's reapplied, abductor pillow reapplied, and all needs met. ANA Cobb informed of pt's status. A: Fair tolerance to tx. Pt showed no signs of distress or SOB during or after tx. Pt continues to require Max VCs/TCs throughout tx due to extreme confusion and VCs for safety due to poor safety awareness. P: Continue POC and progress as tolerated.
--- NOTE | 2018-07-31 15:00 | NUR ---
TOLERATING PUREE DIET WITH NO S/S OF ASPIRATIONS NOTED.PATIENT PLAN FOR DC TO SNF TODAY PER DR HIGGINBOTHAM
--- NOTE | 2018-07-31 17:18 | NUR ---
REPORT GIVEN TO DUNCAN PEREZ AT [facility]
--- NOTE | 2018-07-31 19:37 | NUR ---
DCD TO [facility] IN FAIR CONDITION BP 106/56 PULSE 78,PAIN 0/10
== END 2018-07-31 19:38 | DRG 469 ==
LOC: E/R 16:01 → MS1 19:26 → ICU 07-27 20:44 → MS1 07-30 02:31
PROVIDERS: ADMIT Internal Medicine; ATTEND Internal Medicine
PROC: 30233N1 Transfusion of Nonautologous Red Blood Cells into Peripheral Vein, Percutaneous Approach (ICD-10-PCS; 2018-07-27)
PROC: 5A1935Z Respiratory Ventilation, Less than 24 Consecutive Hours (ICD-10-PCS; 2018-07-27)
PROC: 0SRS019 Replacement of Left Hip Joint, Femoral Surface with Metal Synthetic Substitute, Cemented, Open Approach (ICD-10-PCS; principal; 2018-07-27 15:30)
DX: S72.012A Unspecified intracapsular fracture of left femur, initial encounter for closed fracture (principal); J95.821 Acute postprocedural respiratory failure; E11.40 Type 2 diabetes mellitus with diabetic neuropathy, unspecified; E78.5 Hyperlipidemia, unspecified; D64.9 Anemia, unspecified; D69.6 Thrombocytopenia, unspecified; G20 Parkinson's disease; F02.80 Dementia in other diseases classified elsewhere, unspecified severity, without behavioral disturbance, psychotic disturbance, mood disturbance, and anxiety; I95.9 Hypotension, unspecified; I49.3 Ventricular premature depolarization; I10 Essential (primary) hypertension; N40.0 Benign prostatic hyperplasia without lower urinary tract symptoms; R13.10 Dysphagia, unspecified; R41.82 Altered mental status, unspecified; W01.0XXA Fall on same level from slipping, tripping and stumbling without subsequent striking against object, initial encounter; Y92.002 Bathroom of unspecified non-institutional (private) residence as the place of occurrence of the external cause; Z79.84 Long term (current) use of oral hypoglycemic drugs; Z79.82 Long term (current) use of aspirin
CPT/HCPCS: 36430; 36600; 70450; 71045; 72170; 73500; 73510; 73700; 74018; 80048; 80053; 81001; 82803; 82962; 83036; 83735; 83880; 84484; 85025; 85610; 85730; 86850; 86900; 86901; 86920; 87081; 88305; 88311; 90686; 92526; 92610; 93005; 93306; 94002; 94003; 94770; 97116; 97163; 97167; 97530; 97535; G9033; J0131; J0171; J0690; J1200; J1265; J1650; J1815; J2250; J2274; J2370; J2405; J3010; J3370; J3480; J7030; J7040; J7042; J7070; P9016; P9045; P9047

== ENCOUNTER 2018-08-24 16:37 | Inpatient (IN) | payer OTHER ==
[~2018-08-24] VITALS: Ht 162.6 cm; Wt 70.0 kg
[~2018-08-24 16:37] MED LIST: AMAN100C96 PO; ASPI81TA52 PO; ATEN50TA PO; ATOR20TA38 PO; BISA10SU55 PR; ENOX40DI2 SC; ENTA200T2 PO; FAMO20TA18 PO; LISI-313 PO; METF500T24 PO; METO-448 PO; NALO25TA PO; OMEG1CAP2 PO; PRAM0.5T5 PO; SIN50200 PO; TAMS0.4C2 PO; TYL500 PO; UDMOM PO
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
[2018-08-24] MEDS ORDERED: NORepinephrine 8MG/250 ML (PMX 250 ML IV SCH ×2 (17:30→22:30)
[2018-08-24] MEDS ORDERED: SOD CHLORIDE 0.9% 1,000 ML IV ONE (17:30)
[2018-08-24] MEDS ORDERED: CEFTRIAXONE 1 GM/50 ML (PMX) 50 ML IVPB ONE (18:00)
[2018-08-24] MEDS: PRAMIPEXOLE 0.25 MG TAB PO SCH (22:30)
[2018-08-24] MEDS: SOD CHLORIDE 0.9% 1,000 ML IV SCH (23:17)
[2018-08-24] MEDS: PANTOPRAZOLE 40 MG INJ IV SCH (23:21)
[2018-08-25] VITALS (17 sets, daily range): BP systolic 82–148; BP diastolic 33–67; PULSE 53–78; RESP 11–21; Ht 162.6 cm; Wt 70.0 kg
--- NOTE | 2018-08-25 01:06 | QN ---
Documentation Comment H&P dict a/p 1. GI: likely sbo, cont ngt suction, plan sbft (b) ?constipation contributing, enema (c) doubt gi bleed 2. [id number] shock 3. dm 4. parkinsons 5. dementia 6. family may be leanging toward comfort goals DORY NESS MD Aug 25, 2018 01:06
--- NOTE | 2018-08-25 01:20 | HP ---
DATE OF ADMISSION: 08/24/2018 CHIEF COMPLAINT: Vomiting. HISTORY OF PRESENTING ILLNESS: Mr. Nazario presents to the emergency room at [facility] with vomiting. According to his daughter with whom he lives and serves as his full-time caregiver, he has been having diminished oral intake over the last 2 to 3 days, but began vomiting today. She reporte d this material was dark in color and came here to the emergency room. She states that similarly the re has been no bowel motion over the same couple of days. PAST MEDICAL HISTORY: Significant for Parkinson's disease, dementia, hypertension. The patient was hospitalized approximately 3 weeks ago after a left hip fracture. MEDICATIONS OUTPATIENT: Include: 1. Flomax 0.4 mg at bedtime. 2. Lovenox. 3. Atenolol 50 mg daily. 4. Norvasc. 5. Lipitor 20 mg daily. 6. Lisinopril 5 mg daily. 7. Metoprolol 25 mg b.i.d. 8. Lovaza. 9. Amantadine 100 mg b.i.d. 10. Aspirin 81 mg daily. 11. Sinemet 50/200 one tablet 4 times a day. 12. Entacapone 200 mg 4 times a day. 13. Mirapex 0.5 mg 5 times a daily. 14. Metformin 500 mg q.a.m. ALLERGIES: NO KNOWN DRUG ALLERGIES. SOCIAL HISTORY: The patient lives at home in [place] with his daughter. He is essentially bedbound and using diapers. Denies tobacco, alcohol or illicit drug use. FAMILY HISTORY: Noncontributory. REVIEW OF SYSTEMS: Five systems are reviewed and found not to be revealing. PHYSICAL EXAMINATION: VITAL SIGNS: Blood pressure is 139/83, pulse rate 87, respirations 20, temperature 97.7. GENERAL: Elderly man in no acute distress, alert and oriented x3. HEENT: Normocephalic, atraumatic without evident scleral icterus, perioral cyanosis. Mucous membran es are moist. NECK: Soft and supple without masses. No evidence of jugular venous distention or carotid bruits. CHEST: Clear to auscultation and percussion anteriorly. HEART: Regular rate and rhythm, S1-S2, no added sound. ABDOMEN: Soft, nontender, nondistended without palpable hepatosplenomegaly. EXTREMITIES: Without clubbing, cyanosis or edema. SKIN: Without rashes. NEUROLOGIC: Grossly intact. LABORATORY STUDIES: Reveal a hemoglobin of 13.4 g/dL, white count 12,800, platelets of 230,000. INR is 1.17. Sodium 150, potassium 3.7, chloride 110, bicarbonate 25, BUN 30, creatinine 1.41, glucose 208. Liver function test is remarkable only for an alkaline phosphatase of 133. DIAGNOSTIC DATA: CT scan of brain reveals no acute intracranial hemorrhages or masses. Chest x-ray: No acute cardiopulmonary disease. CT scan of abdomen and pelvis shows dilated loops of bowel with apparent transition point in the right lower quadrant as well as large stool in the colon. ASSESSMENT AND PLAN: 1. Gastrointestinal: The patient is with likely early small-bowel obstruction, receiving NG tube carranza ction at this point in time. We will give IV fluids and manage expectantly. At this point in time, I do not believe there is any gastrointestinal bleeding. 2. Hypovolemic shock, currently receiving Levophed though with adequate hydration. I think this sarah l no longer be necessary. 3. Diabetes. Manage with Accu-Cheks and insulin sliding scale. 4. Parkinson's disease. 5. Dementia. 6. Prophylaxis with sequential compression devices. Dictated By: DORY NESS MD RER/NTS Conf#: [id number] DID#: [id number] CC: RALPH ESCOBAR MD; RYLAN COLLIER MD;*End*
[2018-08-25] MEDS: PANTOPRAZOLE 40 MG INJ IV SCH ×2 (05:58→17:21)
[2018-08-25] MEDS: PRAMIPEXOLE 0.25 MG TAB PO SCH ×3 (06:15→17:21)
[2018-08-25] MEDS: SOD CHLORIDE 0.9% 1,000 ML IV SCH (06:35)
[2018-08-25] MEDS: AMANTADINE 100 MG CAP PO SCH ×2 (08:26→20:48)
[2018-08-25] MEDS: CARBIDOPA/LEVODOPA (25/100) TAB PO SCH ×4 (08:26→20:48)
[2018-08-25] MEDS: ENTACAPONE 200 MG TAB PO SCH ×4 (08:26→20:49)
--- NOTE | 2018-08-25 09:52 | PN ---
Date/Time of Note Date/Time of Note DATE: 08/25/18 TIME: 09:47 Subjective Patient is lethargic but arousable. Does not follow any commands. Daughter at the bedside. Objective Vitals Vital Signs Date Temp Pulse Resp B/P (MAP) Pulse Ox O2 O2 Flow FiO2 Time Delivery Rate 08/25/18 63 14 100 08:45 08/25/18 97.7 97/44 (61) Room Air 08:30 08/24/18 2 18:21 Intake and Output 08/24/18 08/24/18 08/25/18 1515:00 23:00 07:00 OutputOutput Total 375 ml BalanceBalance -375 ml Neck is supple. No JVD Lungs are clear to auscultation bilaterally Cardiac regular rate and rhythm no murmurs or gallops Abdomen soft nontender nondistended normoactive bowel sounds Extremities no clubbing cyanosis or edema Neurological is difficult to assess. Patient is nonverbal. Results Result Diagram: 08/25/1862208/25/18622 Medications Medications Current Medications Amantadine HCl (Symmetrel) 100 mg BID PO ; Start 08/25/18 at 09:00 Atorvastatin Calcium (Lipitor) 20 mg QHS PO ; Start 08/25/18 at 21:00 Carbidopa/Levodopa (Sinemet (25/ )) 2 tab QID PO ; Start 08/25/18 at 09:00 Entacapone (Comtan) 200 mg QID PO ; Start 08/25/18 at 09:00 Pramipexole (Mirapex) 0.5 mg Q6 PO Last administered on 08/25/18at 06:15; Admin Dose 0.5 MG; Start 08/24/18 at 22:30 Tamsulosin HCl (Flomax) 0.4 mg HS PO ; Start 08/25/18 at 21:00 Norepinephrine 250 ml @ 1.875 mls/ hr TITRATE IV ; Start 08/24/18 at 22:30 Sodium Chloride 1,000 ml @ 125 mls/hr Q8H IV Last administered on 08/25/18at 06:35; Admin Dose 125 MLS/HR; Start 08/24/18 at 22:30 Pantoprazole (Protonix Iv) 40 mg BID@0600,1800 IV Last administered on 08/25/18at 05:58; Admin Dose 40 MG; Start 08/24/18 at 22:30 Lines/Catheters IV Catheter Type: Saline Lock Gardner in Place: Yes Cont'd gardner catheter reason: other (indicate) Assessment/Plan Assessment/Plan 88-year-old male with abdominal pain, nausea, vomiting due to constipation, resolved. Patient has had several bowel movements since admission SBO, very unlikely since patient has been having bowel movements Severe dehydration Hypovolemic shock Hypernatremia Parkinson's dementia Hospice care. I had a long discussion with his daughter at the bedside with the help of a foreign service teacher. His daughter is requesting DNR CODE STATUS to be continued. Change IV fluid to D5W Monitor vitals closely Monitor BMP Discontinue NG tube Start pured KEELY Barbour MD Aug 25, 2018 09:52
[2018-08-25] MEDS: DOCUSATE SODIUM 100 MG CAP PO SCH ×2 (10:00→20:49)
[2018-08-25] MEDS: D5W + KCL 20 MEQ 1,000 ML IV SCH ×2 (11:55→19:32)
[2018-08-25] MEDS: ATORVASTATIN 20 MG TAB PO SCH (20:48)
[2018-08-25] MEDS: TAMSULOSIN (SR) 0.4 MG CAP PO SCH (20:49)
[2018-08-26] VITALS (24 sets, daily range): BP systolic 83–140; BP diastolic 45–89; PULSE 58–87; RESP 13–30
[2018-08-26] MEDS: D5W + KCL 20 MEQ 1,000 ML IV SCH ×3 (03:12→19:25)
[2018-08-26] MEDS: PRAMIPEXOLE 0.25 MG TAB PO SCH ×5 (06:00→23:32)
[2018-08-26] MEDS: PANTOPRAZOLE 40 MG INJ IV SCH ×2 (06:06→17:26)
--- NOTE | 2018-08-26 08:41 | PN ---
Date/Time of Note Date/Time of Note DATE: 08/26/18 TIME: 08:38 Subjective Lethargic but arousable. Appears comfortable. Objective Vitals Vital Signs Date Temp Pulse Resp B/P (MAP) Pulse Ox O2 O2 Flow FiO2 Time Delivery Rate 08/26/18 77 19 93/53 (66) 100 Room Air 06:00 08/26/18 97.7 04:00 08/24/18 2 18:21 Intake and Output 08/25/18 08/25/18 08/26/18 1515:00 23:00 07:00 IntakeIntake Total 625 ml 1120 ml 905 ml OutputOutput Total 300 ml 310 ml 260 ml BalanceBalance 325 ml 810 ml 645 ml Lungs with mild rhonchi Cardiac regular rate and rhythm Abdomen soft nontender nondistended normoactive bowel sounds Extremities with no edema Results Result Diagram: 08/25/18 0623 08/26/18 0457 Medications Medications Current Medications Amantadine HCl (Symmetrel) 100 mg BID PO Last administered on 08/25/18at 20:48; Admin Dose 100 MG; Start 08/25/18 at 09:00 Atorvastatin Calcium (Lipitor) 20 mg QHS PO Last administered on 08/25/18 20:48; Admin Dose 20 MG; Start 08/25/18 at 21:00 Carbidopa/Levodopa (Sinemet (/ )) 2 tab QID PO Last administered on 08/25/18 20:48; Admin Dose 2 TAB; Start 08/25/18 at 09:00 Entacapone (Comtan) 200 mg QID PO Last administered on 08/25/18 20:49; Admin Dose 200 MG; Start 08/25/18 at 09:00 Pramipexole (Mirapex) 0.5 mg Q6 PO Last administered on 08/25/18 17:21; Admin Dose 0.5 MG; Start 08/24/18 at 22:30 Tamsulosin HCl (Flomax) 0.4 mg HS PO Last administered on 08/25/18 20:49; Admin Dose 0.4 MG; Start 08/25/18 at 21:00 Pantoprazole (Protonix Iv) 40 mg BID@0600,1800 IV Last administered on 08/26/18at 06:06; Admin Dose 40 MG; Start 08/24/18 at 22:30 Potassium Chloride/Dextrose 1,000 ml @ 125 mls/hr Q8H IV Last administered on 08/26/18at 03:12; Admin Dose 125 MLS/HR; Start 08/25/18 at 11:40 Docusate Sodium (Colace) 200 mg BID PO Last administered on 08/25/18at 20:49; Admin Dose 200 MG; Start 08/25/18 at 10:00 VTE Prophylaxis Risk score (from [place])>0 risk: 7 [place] [facility] [place]Catheters IV Catheter Type: Saline Lock Gardner in Place: Yes Cont'd gardner catheter reason: terminal illness/intractable pain Assessment/Plan Assessment/Plan 88-year-old male with severe dehydration, improved Hypernatremia, improving Severe constipation, resolved Advanced Parkinson's dementia Chronic debilitation DNR CODE STATUS Transfer to [facility] Continue IV fluid hydration Discharge planning in KEELY Perkins MD Aug 26, 2018 08:41
[2018-08-26] MEDS: DOCUSATE SODIUM 100 MG CAP PO SCH (09:00)
[2018-08-26] MEDS: CARBIDOPA/LEVODOPA (25/100) TAB PO SCH ×4 (10:51→20:39)
[2018-08-26] MEDS: AMANTADINE 100 MG CAP PO SCH ×2 (10:51→20:39)
[2018-08-26] MEDS: ENTACAPONE 200 MG TAB PO SCH ×4 (10:51→21:22)
[2018-08-26] MEDS: ATORVASTATIN 20 MG TAB PO SCH (20:38)
[2018-08-26] MEDS: DOCUSATE SODIUM 10 MG/ML (10ML CUP) PO SCH (20:38)
[2018-08-26] MEDS: TAMSULOSIN (SR) 0.4 MG CAP PO SCH (20:39)
[2018-08-26] MEDS: MUPIROCIN 2% 22 GM OINT TOP SCH (20:40)
[2018-08-27] VITALS (10 sets, daily range): BP systolic 95–132; BP diastolic 48–79; PULSE 70–101; RESP 16–27
[2018-08-27] MEDS: D5W + KCL 20 MEQ 1,000 ML IV SCH (03:55)
[2018-08-27] MEDS: PRAMIPEXOLE 0.25 MG TAB PO SCH ×3 (06:31→17:15)
[2018-08-27] MEDS: PANTOPRAZOLE 40 MG INJ IV SCH (06:31)
[2018-08-27] MEDS: DOCUSATE SODIUM 10 MG/ML (10ML CUP) PO SCH ×2 (08:35→21:00)
[2018-08-27] MEDS: ENTACAPONE 200 MG TAB PO SCH ×4 (08:35→21:00)
[2018-08-27] MEDS: CARBIDOPA/LEVODOPA (25/100) TAB PO SCH ×4 (08:35→21:00)
[2018-08-27] MEDS: AMANTADINE 100 MG CAP PO SCH ×2 (08:35→21:00)
[2018-08-27] MEDS: MUPIROCIN 2% 22 GM OINT TOP SCH ×2 (08:35→21:12)
--- NOTE | 2018-08-27 09:57 | PDOCDIS ---
Discharge Instructions DIAGNOSIS Discharge Diagnosis 88-year-old male with abdominal pain and nausea due to constipation Severe dehydration, resolved Hypernatremia, resolved Advanced Alzheimer's dementia History of recent hip fracture. Status post ORIF Under care of hospice 88-year-old male was brought into the emergency room with complaint of abdominal pain and nausea. Initially, CAT scan suggested small bowel obstruction. However, patient had several bowel movements during the hospitalization. He remained hemodynamically stable. Patient has advanced Alzheimer's dementia and is in a bedridden state. He was in care of hospice at home prior to admission. Patient is in a stable condition to return home in care of hospice. He is nonverbal. His abdomen was soft and nontender at the time of discharge CONDITION [id number] Patient Condition: [id number] Fair HOME CARE INSTRUCTIONS: [id number] Special Diet: [id number] Pured diet FOLLOW UP/APPOINTMENTS Follow-up Plan Home hospice KEELY HIGGINBOTHAM MD Aug 27, 2018 09:56
[2018-08-27] MEDS: PANTOPRAZOLE (EC) 40 MG TAB PO SCH (17:15)
[2018-08-27] MEDS: ATORVASTATIN 20 MG TAB PO SCH (21:00)
[2018-08-27] MEDS: TAMSULOSIN (SR) 0.4 MG CAP PO SCH (21:00)
[2018-08-28] VITALS (7 sets, daily range): BP systolic 109–125; BP diastolic 55–59; PULSE 63–78; RESP 16–20
[2018-08-28] MEDS: PRAMIPEXOLE 0.25 MG TAB PO SCH ×4 (05:25→17:50)
[2018-08-28] MEDS: PANTOPRAZOLE (EC) 40 MG TAB PO SCH ×2 (05:42→17:53)
[2018-08-28] MEDS: CARBIDOPA/LEVODOPA (25/100) TAB PO SCH ×3 (08:40→17:50)
[2018-08-28] MEDS: MUPIROCIN 2% 22 GM OINT TOP SCH (08:40)
[2018-08-28] MEDS: DOCUSATE SODIUM 10 MG/ML (10ML CUP) PO SCH (08:40)
[2018-08-28] MEDS: AMANTADINE 100 MG CAP PO SCH (08:40)
[2018-08-28] MEDS: ENTACAPONE 200 MG TAB PO SCH ×3 (08:40→17:50)
== END 2018-08-28 20:08 | disposition hospice, home (50) | DRG 388 ==
LOC: E/R 16:37 → ICU 20:14 → CANRESERV 21:08 → EDBEDREQSVC 21:59 → TEL 08-27 01:53
PROVIDERS: ADMIT Legal Medicine; ATTEND Legal Medicine
PROC: 30233N1 Transfusion of Nonautologous Red Blood Cells into Peripheral Vein, Percutaneous Approach (ICD-10-PCS; principal; 2018-08-24)
DX: K56.600 Partial intestinal obstruction, unspecified as to cause (principal); R57.1 Hypovolemic shock; K92.0 Hematemesis; G93.40 Encephalopathy, unspecified; K59.00 Constipation, unspecified; G20 Parkinson's disease; F02.80 Dementia in other diseases classified elsewhere, unspecified severity, without behavioral disturbance, psychotic disturbance, mood disturbance, and anxiety; E86.0 Dehydration; N40.0 Benign prostatic hyperplasia without lower urinary tract symptoms; E78.5 Hyperlipidemia, unspecified; D64.9 Anemia, unspecified; E11.9 Type 2 diabetes mellitus without complications; Z66 Do not resuscitate
CPT/HCPCS: 36415; 36430; 70450; 71045; 74176; 80048; 80053; 82962; 84484; 85025; 85610; 85730; 86644; 86850; 86900; 86901; 86920; 87081; 93005; 96365; 96366; 96375; C1751; C9113; J0696; J3480; J7030; P9016